=== PATIENT | female | born 1955 | race Caucasian/White ===

== ENCOUNTER → 2017-10-31 06:59 | Outpatient (CLI) | payer OTHER, SELFPAY ==
[2017-10-31 10:50] LABS: Cholesterol 245 mg/dL (200); High Density Lipoprotein 43 mg/dL; Triglycerides 248 mg/dL; Very Low Density Lipoprotein 50 mg/dL (5-40)
== END ==
PROVIDERS: Family Provider Family Medicine; PCP Family Medicine; Visit Provider Family Medicine
DX: E78.1 Pure hyperglyceridemia (principal); R73.03 Prediabetes
CPT/HCPCS: 36415; 80061; 83036

== ENCOUNTER → 2018-06-16 07:02 | Outpatient (CLI) | payer OTHER, SELFPAY ==
[2018-06-16 10:35] LABS: Anion Gap 9 (5-15); BUN 16 mg/dL (7-18); BUN/Creat Ratio 16.6 RATIO (10-20); Chloride 103 mmol/L (98-107); Cholesterol 261 mg/dL (200); Creatinine, Serum 0.96 mg/dL (0.55-1.02); EST Glomerular Filtration Rate 62 mL/min (>60); Est Glom Filt Rate - Afr Amer 75 mL/min (>60); Glucose 119 mg/dL (74-106); High Density Lipoprotein 37 mg/dL; Potassium 4.1 mmol/L (3.5-5.1); Sodium Level 140 mmol/L (136-145); Triglycerides 209 mg/dL; Very Low Density Lipoprotein 42 mg/dL (5-40)
[2018-06-16 10:37] LABS: Hemoglobin A1c 5.9 % (4.2-6.3)
== END ==
PROVIDERS: Family Provider Family Medicine; PCP Family Medicine; Visit Provider Family Medicine
DX: R73.03 Prediabetes (principal); E78.1 Pure hyperglyceridemia; R03.0 Elevated blood-pressure reading, without diagnosis of hypertension
CPT/HCPCS: 36415; 80048; 80061; 83036

== ENCOUNTER → 2018-09-05 10:29 | Outpatient (CLI) | payer OTHER, SELFPAY ==
[2018-09-05 11:54] LABS: Insulin 14.4 mU/L (2.6-37.6); Vitamin B12 355 pg/mL (211-911); Vitamin D,25 Hydroxy 13.4 ng/mL (29.95-100.01)
[2018-09-05 12:03] LABS: Homocysteine 8.5 umol/L (3.2-10.7)
[2018-09-05 12:45] LABS: AST(SGOT) 29 U/L (15-37); Alanine Aminotransfer ALT/SGPT 58 U/L (13-56); Albumin, Serum 3.7 g/dL (3.2-5.0); Alkaline Phosphatase 97 U/L (45-117); Bilirubin, Direct 0.15 mg/dL (0.00-0.30); Estradiol 25.9 pg/mL; Free T3 3.1 pg/mL (2.18-3.98); Globulin 3.6 g/dL (2.2-4.2); Glucose 110 mg/dL (74-106); Protein, Total 7.3 g/dL (6.4-8.2); T4 Free Direct 1.12 ng/dL (0.76-1.46); Thyroid Stim Hormone (TSH) 2.18 uIU/mL (0.358-3.74)
[2018-09-06 04:10] LABS: DHEA Sulfate 78.5 ug/dL (29.4-220.5)
[2018-09-08 11:31] LABS: Sex Hormone-binding Globulin 30.1 nmol/L (17.3-125.0)
[2018-09-10 18:40] LABS: Methylmalonic Acid Bld 190
--- OUTSIDE RECORDS SUMMARY | 2018-10-22 01:29 | XMS RPT_ITS ---
:1955 Author Organization OHIP Care Team Providers Name Role Phone Yane Wheeler Attending Unavailable Yane Wheeler Attending Unavailable Yane Wheeler Referring Unavailable Sathish Copeland Primary Care Unavailable Sathish Copeland Attending Unavailable Sathish Copeland Primary Care Unavailable Sathish Copeland Referring Unavailable Sathish Copeland Attending Unavailable Sathish Copeland Primary Care Unavailable Sathish Copeland Referring Unavailable PROBLEMS PROBLEMS DATE TYPE CONDITION / CODE ATTENDING STATUS SOURCE 09/05/2018 Unknown R68.82 - Decreased Sarah Wheeler [place] libido / [facility] R68.82(ICD-10) Hospital Repository 09/05/2018 Unknown Z68.28 - Body mass Sarah Wheeler index (BMI) 28.0-28.9, [facility] adult / Z68.28(ICD-10) Hospital Repository 06/16/2018 Unknown E78.1 - Pure Sathish Copeland [facility] hyperglyceridemia / [facility] E78.1(ICD-10) Hospital Repository 06/16/2018 Unknown R73.03 - Prediabetes / Sathish Copeland Active [place] R73.03(ICD-10) [facility] Hospital Repository 06/16/2018 Unknown R03.0 - Elevated Sathish Copeland [place] blood-pressure [facility] reading, without Hospital diagnosis of Repository hypertension / R03.0(ICD-10) PROCEDURES PROCEDURES No Procedure Records FoundRESULTS RESULTS SCREENING MAMM (CAD), Observed: 09/20/2018 Status: F Source: [place] BIL 10:47 AM [facility] REPOSITORY [facility] Imaging Services [address] [place] [address] SCREENING MAMM (CAD), BIL MR#: [id number] Acct: [id number] Name: CARLY FULLER Rep #: [id number] : 1955 F 63 From: lSick Avina MD PCP: Sathish Copeland DO Status: REG CLI Study: SCREENING MAMM (CAD), BILAT Date of Exam: 09/20/18 Exam# [id number] Ordering Dr: Yane Abreu MD MAMMOGRAPHY - BILATERAL SCREENING REASON FOR EXAM: Female, 63 years old. Routine annual screening examination. PERTINENT HISTORY: Non-contributory. TECHNIQUE: Digital bilateral breast shanthi (3D mammographic acquisition) in the CC and MLO projections. 2-D mediolateral oblique (MLO) and craniocaudad (CC) views of both breasts were obtained. CAD: Full Field Digital Mammography with Computer Added Detection was performed. COMPARISON: Comparison is made with prior study dated July 19, 2017 and March 01, 2016. FINDINGS: Breast Composition: There are scattered areas of fibroglandular density. There are no dominant masses or suspicious calcifications. Stable small bilateral axillary lymph nodes. Stable 6.7 mm benign-appearing nodule in the deep upper lateral aspect of the right breast suggestive of a small lymph node. No other significant abnormalities are identified. There has been no significant change since the prior study. BI/SCREENING MAMM (CAD), BILAT IMPRESSION: Stable bilateral screening mammogram. Yearly follow-up mammogram recommended. (A) ASSESSMENT CATEGORY: BIRADS Category 2: Benign. A letter regarding these results will be sent to the patient by the facility within 30 days. Approximately 10% of breast cancers are not detected by mammography. A normal mammogram should not delay biopsy of a clinically suspicious abnormality. [id number] Electronically Signed: Slick Avina MD at 10:54 EST Tel [phone], Service support , CC: Sathish Copeland DO; Yane Wheeler MD Senior Project Controls Specialist: Signed VITAMIN B12 Collected: 09/05/2018 Status: F Source: [place] 10:32 AM [facility] REPOSITORY Order Comment: PATIENT HAD COFFE WITH A DASH OF CREAM. TYPE CODE TESTS RESULT OUT OF RANGE REFERENCE UNITS LAB L503.0105 211-911 pg/mL Normal Vitamin B12 355 Performed By: #### L503.0105, L506.1000, L509.3000, L509.6000, [id number] #### [facility] [address] [place], [address] VITAMIN D,25 HYDROXY Collected: 09/05/2018 Status: F Source: LIDIA 10:32 AM [facility] REPOSITORY Order Comment: PATIENT HAD COFFE WITH A DASH OF CREAM. TYPE CODE TESTS RESULT OUT OF REFERENCE UNITS RANGE LAB L506.1000 29.95-100.01 ng/mL Low Vitamin D 13.4 25-OH Result Comment: Vitamin D 25(OH) Status Range Deficiency <20 ng/mL (50nmol/L) Insuffciency 20 - 30 ng/mL (50 - 75 nmol/L) Sufficiency 30 - 100 ng/mL (75 - 250 nmol/L) Toxicity >100 ng/mL (>250 nmol/L) Performed By: #### L503.0105, L506.1000, L509.3000, L509.6000, [id number] #### [facility] [address] [place], [address] TESTOSTERONE, SERUM TOTAL Collected: 09/05/2018 Status: F Source: [place] 10:32 AM [facility] REPOSITORY Order Comment: PATIENT HAD COFFE WITH A DASH OF CREAM. TYPE CODE TESTS RESULT OUT OF REFERENCE UNITS RANGE LAB L509.3000 ng/dL Testosterone Normal 22.14 Result Comment: NORMAL REFERENCE RANGES MALE AGE <50 123.06 - 813.86 ng/dL MALE AGE >50 89.98 - 780.10 ng/dL FEMALE PREMENOPAUSE AGE 21 - 60 9.01 - 47.94 ng/dL FEMALE POSTMENOPAUSE AGE 45 - 89 <7.00 - 45.62 ng/dL REFERENCE RANGE AND METHODOLOGY CHANGED 09/11/2017 Performed By: #### L503.0105, L506.1000, L509.3000, L509.6000, [id number] #### [facility] [address] [place], [address] CORTISOL SERUM Collected: 09/05/2018 Status: F Source: [place] 10:32 AM [facility] REPOSITORY Order Comment: PATIENT HAD COFFE WITH A DASH OF CREAM. TYPE CODE TESTS RESULT OUT OF RANGE REFERENCE UNITS LAB L509.6000 3.09-22.40 ug/dL Normal CORTISOL 5.00 Result Comment: Adult (AM) 4.30 - 22.40 ug/dL Adult (PM) 3.09 - 16.66 ug/dL Performed By: #### L503.0105, L506.1000, L509.3000, L509.6000, [id number] #### [facility] [address] [place], [address] INSULIN Collected: 09/05/2018 Status: F Source: [place] 10:32 AM [facility] REPOSITORY Order Comment: PATIENT HAD COFFE WITH A DASH OF CREAM. TYPE CODE TESTS RESULT OUT OF RANGE REFERENCE UNITS LAB [id number] 2.6-37.6 mU/L Normal Insulin 14.4 Result Comment: Please Note: INSULIN METHOD AND REFERENCE RANGE CHANGE Effective 10/03/2017. Performed By: #### L503.0105, L506.1000, L509.3000, L509.6000, [id number] #### [facility] [address] [place], [place], [address] HOMOCYSTEINE Collected: 09/05/2018 Status: F Source: [place] 10:32 AM [facility] REPOSITORY TYPE CODE TESTS RESULT OUT OF REFERENCE UNITS RANGE LAB L503.8001 3.2-10.7 umol/L HOMOCYSTEINE Normal 8.5 Performed By: #### L503.8001 #### [facility] [address] [facility] [place], [address] LIVER PROFILE Collected: 09/05/2018 Status: F Source: [place] 10:32 AM [facility] REPOSITORY Order Comment: PATIENT HAD COFFEE WITH A DASH OF CREAM. TYPE CODE TESTS RESULT OUT OF RANGE REFERENCE UNITS LAB L501.1500 6.4-8.2 g/dL Normal T PROT 7.3 LAB L501.1800 3.2-5.0 g/dL Normal ALB 3.7 LAB L501.1950 2.2-4.2 g/dL Normal GLOB 3.6 LAB L501.4100 15-37 U/L Normal AST 29 LAB L501.4305 45-117 U/L Normal ALK P 97 LAB L501.4405 13-56 U/L High ALT 58 LAB L501.4600 0.20-1.00 mg/dL Normal T BILI 0.60 LAB L501.4700 0.00-0.30 mg/dL Normal D BILI 0.15 Performed By: #### L500.3400, L501.0100, L501.56560, L501.9520, L506.0400, L3300.1750 #### [facility] [address] [place], [address] GLUCOSE Collected: 09/05/2018 Status: F Source: L[place]IA 10:32 AM [facility] REPOSITORY Order Comment: PATIENT HAD COFFEE WITH A DASH OF CREAM. TYPE CODE TESTS RESULT OUT OF RANGE REFERENCE UNITS LAB L501.0100 74-106 mg/dL High GLU 110 Result Comment: Fasting Glucose result from 100 to 125 mg/dL suggests IMPAIRED HOMEOSTASIS per A.D.A. criteria. Please note revised GLUCOSE reference range effective 2017. Performed By: #### L500.3400, L501.0100, L501.73859, L501.9520, L506.0400, L3300.1750 #### [facility] [address] [place], [address] FREE T3 Collected: 09/05/2018 Status: F Source: L[place] 10:32 AM [facility] REPOSITORY Order Comment: PATIENT HAD COFFEE WITH A DASH OF CREAM. TYPE CODE TESTS RESULT OUT OF RANGE REFERENCE UNITS LAB L501.96410 2.18-3.98 pg/mL Normal FREE T3 3.1 Performed By: #### L500.3400, L501.0100, L501.06306, L501.9520, L506.0400, L3300.1750 #### [facility] [address] [place], [address] THYROID STIM HORMONE Collected: 09/05/2018 Status: F Source: [place] (TSH) 10:32 AM [facility] REPOSITORY Order Comment: PATIENT HAD COFFEE WITH A DASH OF CREAM. TYPE CODE TESTS RESULT OUT OF RANGE REFERENCE UNITS LAB L501.9520 0.358-3.74 uIU/mL Normal TSH 2.18 Performed By: #### L500.3400, L501.0100, L501.66449, L501.9520, L506.0400, L3300.1750 #### [facility] [address] [place], [address] T4 FREE DIRECT Collected: 09/05/2018 Status: F Source: [place] 10:32 AM [facility] REPOSITORY Order Comment: PATIENT HAD COFFEE WITH A DASH OF CREAM. TYPE CODE TESTS RESULT OUT OF RANGE REFERENCE UNITS LAB L506.0400 0.76-1.46 ng/dL Normal T4 FREE 1.12 DIRECT Performed By: #### L500.3400, L501.0100, L501.43847, L501.9520, L506.0400, L3300.1750 #### [facility] [address] [place], [place], [address] ESTRADIOL Collected: 09/05/2018 Status: F Source: [place] 10:32 AM [facility] REPOSITORY Order Comment: PATIENT HAD COFFEE WITH A DASH OF CREAM. TYPE CODE TESTS RESULT OUT OF RANGE REFERENCE UNITS LAB L3300.1750 pg/mL Normal ESTRADIOL 25.9 Result Comment: NORMAL REFERENCE RANGES FEMALE FOLLICULAR 21.4 - 164.8 pg/mL MID-CYCLE PEAK 49.9 - 367.2 pg/mL LUTEAL 40.2 - 259.0 pg/mL POST-MENOPAUSAL ON MHT <11.0 - 462.1 pg/mL NOT ON MHT <11.0 - 58.3 pg/mL MALE <11.0 - 52.5 pg/mL NOTE: [facility] HAS CONFIRMED THE DRUG FULVETRANT (FASLODEX) MAY CAUSE FALSELY ELEVATED ESTRADIOL RESULTS WHEN USING THIS TEST METHOD. IF PATIENT IS TAKING FULVESTRANT AN ALTERNATIVE METHOD SHOULD BE USED TO DETERMINE ESTRADIOL CONCENTRATION. Performed By: #### L500.3400, L501.0100, L501.79632, L501.9520, L506.0400, L3300.1750 #### [facility] [address] [place], [place], [address] SEX HORMONE-BINDING Collected: 09/05/2018 Status: F Source: [place] GLOBULIN 10:32 AM [facility] REPOSITORY Order Comment: Has Patient had Radioactive Injection for X-ray?: N TYPE CODE TESTS RESULT OUT OF RANGE REFERENCE UNITS LAB L3100.5060 17.3-125.0 nmol/L Normal SHBG 30.1 Result Comment: Performed at: [address] [id number] Enforcement Manager: Reese Painter PhD, Phone: [phone] Performed By: #### L3100.5060, L3300.1500 #### [facility] (refer to report for specific site) refer to report for address and phone number DHEA SULFATE Collected: 09/05/2018 Status: F Source: L[place] 10:32 AM [facility] REPOSITORY Order Comment: Has Patient had Radioactive Injection for X-ray?: N TYPE CODE TESTS RESULT OUT OF RANGE REFERENCE UNITS LAB L3300.1500 29.4-220.5 ug/dL Normal DHEA SULF 78.5 4020 Performed By: #### L3100.5060, L3300.1500 #### [facility] (refer to report for specific site) refer to report for address and phone number METHYLMALONIC ACID BLD Collected: 09/05/2018 Status: F Source: [place] 10:32 AM [facility] REPOSITORY TYPE CODE TESTS RESULT OUT OF RANGE REFERENCE UNITS LAB L7400.3000 Normal METHYLM 190 137716 Result Comment: TEST RESULT UNITS REF INTERVAL Methylmalonic Acid, Serum nmol/L 0 - 378 Disclaimer: This test was developed and its performance characteristics determined by [employer]. It has not been cleared or approved by the U.S. Food and Drug Administration. TESTING PERFORMED AT [facility]. ORIGINAL REPORT ON FILE IN LAB CONTAINS ADDITIONAL TEST SITE INFORMATION. Performed By: #### L7400.3000 #### [facility] (refer to report for specific site) refer to report for address and phone number BASIC METABOLIC Collected: 06/16/2018 Status: F Source: [place] PROFILE (BMP) 7:07 AM [facility] REPOSITORY TYPE CODE TESTS RESULT OUT OF RANGE REFERENCE UNITS LAB L501.0100 74-106 mg/dL High GLU 119 Result Comment: Fasting Glucose result from 100 to 125 mg/dL suggests IMPAIRED HOMEOSTASIS per A.D.A. criteria. Please note revised GLUCOSE reference range effective 2017. LAB L501.1000 7-18 mg/dL Normal BUN 16 LAB L501.1100 0.55-1.02 mg/dL Normal CREAT,SERUM 0.96 Result Comment: The validity of the calculated GFR AND GFRAA in patients over 70 years has not been determined. Clinical correlation is essential. LAB L501.1110 >60 mL/min Normal EST GFR 62 Result Comment: Non- GFR Calc LAB L501.1115 >60 mL/min Normal EST GFR - AA 75 Result Comment: GFR Calc LAB L501.1300 10-20 RATIO Normal BUN/CRE 16.6 LAB L501.2200 8.5-10.1 mg/dL CA Normal 9.0 LAB L501.5300 136-145 mmol/L NA Normal 140 LAB L501.5600 3.5-5.1 mmol/L K Normal 4.1 LAB L501.5900 98-107 mmol/L CL Normal 103 LAB L501.6100 21.0-32.0 mmol/L Normal CO2 28.0 LAB L501.6200 5-15 Normal GAP 9 Performed By: #### L500.2500, L500.4100 #### [facility] [address] [place], [place], [address] LIPID PROFILE Collected: 06/16/2018 Status: F Source: T[place] 7:07 AM [facility] REPOSITORY TYPE CODE TESTS RESULT OUT OF RANGE REFERENCE UNITS LAB L501.4900 200 mg/dL High CHOL 261 Result Comment: <200 mg/dL Desirable 200-240 mg/dL Borderline >240 mg/dL High Risk LAB L501.5000 mg/dL High TRIG 209 Result Comment: The drugs N-Acetylcysteine and Metamizole may falsely depress this assay. Serum Triglycerides Reference Interval Normal <150 mg/dL Borderline high 150 - 199 mg/dL High 200 - 499 mg/dL Very High > or = 500 mg/dL LAB L501.6400 mg/dL Low HDL 37 Result Comment: The drugs N-Acetylcysteine and Metamizole may falsely depress this assay. Reference Range HDL <40 mg/dL Low HDL Cholesterol HDL >or= 60 mg/dL High HDL Cholesterol LAB L501.6500 0-130 mg/dL High LDL 182 LAB L501.6600 5-40 mg/dL High VLDL 42 Performed By: #### L500.2500, L500.4100 #### [facility] [address] [facility] [place], [address] HEMOGLOBIN A1C Collected: 06/16/2018 Status: F Source: T[place]OR 7:07 AM [facility] REPOSITORY TYPE CODE TESTS RESULT OUT OF RANGE REFERENCE UNITS LAB L501.9985 4.2-6.3 % Normal HGB A1C 5.9 Performed By: #### L501.9985 #### [facility] [address] [place], [address] HEMOGLOBIN A1C Collected: 10/31/2017 Status: F Source: TAY[place]OR 7:09 AM [facility] REPOSITORY TYPE CODE TESTS RESULT OUT OF RANGE REFERENCE UNITS LAB L501.9985 4.2-6.3 % Normal HGB A1C 6.0 Performed By: #### L501.9985 #### [facility] [address] [facility] [place], [address] LIPID PROFILE Collected: 10/31/2017 Status: F Source: [place]OR 7:09 AM [facility] REPOSITORY TYPE CODE TESTS RESULT OUT OF RANGE REFERENCE UNITS LAB L501.4900 200 mg/dL High CHOL 245 Result Comment: <200 mg/dL Desirable 200-240 mg/dL Borderline >240 mg/dL High Risk LAB L501.5000 mg/dL High TRIG 248 Result Comment: The drugs N-Acetylcysteine and Metamizole may falsely depress this assay. Serum Triglycerides Reference Interval Normal <150 mg/dL Borderline high 150 - 199 mg/dL High 200 - 499 mg/dL Very High > or = 500 mg/dL LAB L501.6400 mg/dL Normal HDL 43 Result Comment: The drugs N-Acetylcysteine and Metamizole may falsely depress this assay. Reference Range HDL <40 mg/dL Low HDL Cholesterol HDL >or= 60 mg/dL High HDL Cholesterol LAB L501.6500 0-130 mg/dL High LDL 152 LAB L501.6600 5-40 mg/dL High VLDL 50 Performed By: #### L500.4100 #### [facility] [address] [place], [address] ALLERGIES ALLERGIES DATE TYPE / CODE NAME / CODE REACTION SEVERITY SOURCE 10/27/2014 Drug rizatriptan Unknown Unknown [facility] Allergy/416 benzoate/[id number] [facility] [id number][facility] 10/27/2014 Drug prednisone/[id number] Nausea Unknown [facility]idia Allergy/416 164(RXNORM) [facility] 154928([facility] ED CT) Repository 10/27/2014 Drug clarithromycin/F00 Diarrhea Unknown [place]idia Allergy/991 [id number](RXNORM) [facility] 561390([facility] ED CT) Repository ENCOUNTERS ENCOUNTERS ADMIT/DISCHARGE ACCOUNT ADMITTING ENCOUNTER LOCATION SOURCE NUMBER CLASS 09/20/2018 [id number] Ambulatory [facility] 1 [facility] ing:OPBI Repository 09/05/[id number] ing:WOBLAB Repository 06/16/2018 [id number] [facility] ing:LAB.FUTUR Repository E 10/31/2017 [id number] Ambulatory [facility] 7 [facility] ing:LAB.FUTUR Repository E PAYERS PAYERS ENCOUNTER GUARANTOR PAYER SUBSCRIBER SOURCE 09/20/2018 CARLY Hernadez [id number] N Insurance:MEDICAL SUTTONDOB: [facility] [id number] Number: Repository [id number]: [phone] [id number] [phone] () Date:4584-70-52WP [address] [place] [phone]: 09/20/2018 Secondary NOT GIVENUNK [place] Insurance:SELF PAY [facility] Number: Effective Repository Date:2018-09-05 09/05/2018 CARLY Hernadez [id number] N Insurance:MEDICAL SUTTONDOB: [facility] [id number] Number: Repository [id number]: [phone] [id number] [phone] (HP) Date:7359-33-76LS [address] [place] [phone]: 09/05/2018 Secondary NOT GIVENUNK [place] Insurance:SELF PAY [facility] Number: Effective Repository Date:2018-09-05 06/16/2018 CARLY L Primary CARLY Hernadez [id number] N Insurance:MEDICAL SUTTONDOB: [facility] [id number] Number: Repository [id number]: [phone] [id number] [phone] (HP) Date:1333-28-15DL [address] [place] [phone]: 06/16/2018 Secondary NOT GIVENUNK [facility]idia Insurance:SELF PAY [facility] Number: Effective Repository Date:2017-11-19 10/31/2017 Carly Primary Carly Hernadez [id number] [id number] Number: Repository [place], [place] [id number]: [phone]) Date:1816-22-63NL [phone] () [address] [place] [phone]: 10/31/2017 Secondary NOT GIVENUNK [place] Insurance:SELF PAY [facility] Number: Effective Repository Date:2017-01-09
== END ==
PROVIDERS: Visit Provider Obstetrics & Gynecology
DX: R68.82 Decreased libido (principal); R53.83 Other fatigue; Z68.28 Body mass index [BMI] 28.0-28.9, adult
CPT/HCPCS: 36415; 80076; 82306; 82533; 82607; 82627; 82670; 82947; 83090; 83525; 83921; 84270; 84403; 84439; 84443; 84481; 82626

== ENCOUNTER → 2018-09-20 10:37 | Outpatient (CLI) | payer OTHER, SELFPAY ==
--- NOTE | 2018-09-20 10:47 | BI_ITS ---
MAMMOGRAPHY - BILATERAL SCREENING REASON FOR EXAM: Female, 63 years old. Routine annual screening examination. PERTINENT HISTORY: Non-contributory. TECHNIQUE: Digital bilateral breast shanthi (3D mammographic acquisition) in the CC and MLO projections. 2-D mediolateral oblique (MLO) and craniocaudad (CC) views of both breasts were obtained. CAD: Full Field Digital Mammography with Computer Added Detection was performed. COMPARISON: Comparison is made with prior study dated July 19, 2017 and March 01, 2016. FINDINGS: Breast Composition: There are scattered areas of fibroglandular density. There are no dominant masses or suspicious calcifications. Stable small bilateral axillary lymph nodes. Stable 6.7 mm benign-appearing nodule in the deep upper lateral aspect of the right breast suggestive of a small lymph node. No other significant abnormalities are identified. There has been no significant change since the prior study. BI/SCREENING MAMM (CAD), BILAT IMPRESSION: Stable bilateral screening mammogram. Yearly follow-up mammogram recommended. (A) ASSESSMENT CATEGORY: BIRADS Category 2: Benign. A letter regarding these results will be sent to the patient by the facility within 30 days. Approximately 10% of breast cancers are not detected by mammography. A normal mammogram should not delay biopsy of a clinically suspicious abnormality. [id number] Electronically Signed: Slick Avina MD at 10:54 EST Tel [phone], Service support ,
== END ==
PROVIDERS: Family Provider Family Medicine; PCP Family Medicine; Referring Provider Obstetrics & Gynecology; Visit Provider Obstetrics & Gynecology
DX: Z12.31 Encounter for screening mammogram for malignant neoplasm of breast (principal)
CPT/HCPCS: 77063; 77067

== ENCOUNTER → 2019-09-07 08:59 | Outpatient (CLI) | payer OTHER, SELFPAY ==
[2019-09-07 10:11] LABS: Absolute Lymphocyte Count 1.74 X10^3/uL (0.83-4.51); Absolute Neutrophil Count 1.9 X10^3/uL (2.0-7.7); Basophil# 0.04 X10^3/uL; Eosinophil# 0.23 X10^3/uL; Eosinophils% 5.5 % (0-5); Hematocrit 46.2 % (37-47); Hemoglobin 15.3 g/dL (12.0-15.0); Lymphocyte # 1.74 X10^3/ul (4.0); Lymphocyte % 41.6 % (19-41); Mean Corp Hgb Conc 33.1 g/dL (32-36); Mean Corpuscular Hgb 30.1 pg (27.0-32.0); Mean Corpuscular Volume 90.8 fL (81-99); Monocyte# 0.31 X10^3/uL; Monocyte% 7.4 % (0-10); NRBC Flagged by Analyzer 0 % (0-5); Neutrophil # 1.85 X10^3/uL (2.7-7.7); Neutrophil % 44.3 % (47-70); Platelet Count 217 K/mm3 (150-450); RBC Distribution Width CV 12.8 % (11.6-14.6); RBC Distribution Width SD 42.8 fl (35.1-43.9); Red Blood Count 5.09 M/mm3 (4.2-5.4); White Blood Count 4.2 K/mm3 (4.4-11.0)
[2019-09-07 10:24] LABS: ALB/GLOB Ratio 1.1 RATIO (0.9-2.4); AST(SGOT) 36 U/L (15-37); Alanine Aminotransfer ALT/SGPT 64 U/L (13-56); Albumin, Serum 3.7 g/dL (3.2-5.0); Alkaline Phosphatase 81 U/L (45-117); Anion Gap 6 (5-15); BUN 14 mg/dL (7-18); BUN/Creat Ratio 13.6 RATIO (10-20); Calcium,Total 8.9 mg/dL (8.5-10.1); Chloride 107 mmol/L (98-107); Cholesterol 277 mg/dL (200); Creatinine, Serum 1.03 mg/dL (0.55-1.02); EST Glomerular Filtration Rate 58 mL/min (>60); Est Glom Filt Rate - Afr Amer 70 mL/min (>60); Globulin 3.3 g/dL (2.2-4.2); Glucose 124 mg/dL (74-106); High Density Lipoprotein 42 mg/dL; Potassium 4.4 mmol/L (3.5-5.1); Sodium Level 140 mmol/L (136-145); Triglycerides 278 mg/dL; Very Low Density Lipoprotein 56 mg/dL (5-40)
[2019-09-07 10:34] LABS: Hemoglobin A1c 6.3 % (4.2-6.3)
== END ==
PROVIDERS: Family Provider Family Medicine; PCP Family Medicine; Referring Provider Family Medicine; Visit Provider Family Medicine
DX: R73.03 Prediabetes (principal); E78.1 Pure hyperglyceridemia; I11.9 Hypertensive heart disease without heart failure
CPT/HCPCS: 36415; 80053; 80061; 83036; 85025

== ENCOUNTER → 2019-09-11 | Outpatient (CLI) | payer OTHER, SELFPAY ==
[2019-09-17 20:22] LABS: HPV APTIMA, High Risk Negative (Negative); HPV Reflexed? YES, CHARGE PATIENT
== END | disposition home or self-care (01) ==
LOC: LABSPEC 15:12
PROVIDERS: Family Provider Family Medicine; PCP Family Medicine; Referring Provider Obstetrics & Gynecology; Visit Provider Obstetrics & Gynecology
DX: Z12.4 Encounter for screening for malignant neoplasm of cervix (principal)
CPT/HCPCS: 87624; 88175; G0145

== ENCOUNTER → 2019-10-06 07:14 | Outpatient (CLI) | payer OTHER, SELFPAY ==
--- NOTE | 2019-10-06 07:17 | BI_ITS ---
MAMMOGRAPHY - BILATERAL SCREENING REASON FOR EXAM: Female, 64 years old. Routine annual screening examination. PERTINENT HISTORY: Non-contributory. TECHNIQUE: Digital bilateral breast shawna (3D mammographic acquisition) in the CC and MLO projections. 2-D mediolateral oblique (MLO) and craniocaudad (CC) views of both breasts were obtained. CAD: Full Field Digital Mammography with Computer Added Detection was performed. COMPARISON: Comparison is made with prior study dated September 20, 2018 and July 19, 2017. FINDINGS: Breast Composition: There are scattered areas of fibroglandular density. There are no dominant masses or suspicious calcifications. Stable benign-appearing bilateral axillary lymph nodes. Stable 6.7 mm benign-appearing nodule in the deep upper lateral aspect of the right breast suggestive of a small lymph node. No other significant abnormalities are identified. There has been no significant change since the prior study. BI/SCREEN MAMM (CAD) W/SHAWNA BILAT IMPRESSION: Stable bilateral screening mammogram. Yearly follow-up mammogram recommended. (A) ASSESSMENT CATEGORY: BIRADS Category 2: Benign. A letter regarding these results will be sent to the patient by the facility within 30 days. Approximately 10% of breast cancers are not detected by mammography. A normal mammogram should not delay biopsy of a clinically suspicious abnormality. [id number] Electronically Signed: Slick Avina, at 9:46 EST , Service support ,
== END ==
PROVIDERS: Family Provider Family Medicine; PCP Family Medicine; Referring Provider Obstetrics & Gynecology; Visit Provider Obstetrics & Gynecology
DX: Z12.31 Encounter for screening mammogram for malignant neoplasm of breast (principal)
CPT/HCPCS: 77063; 77067

== ENCOUNTER → 2019-12-04 08:37 | Outpatient (CLI) | payer OTHER, SELFPAY ==
[2019-12-04 10:02] LABS: Hemoglobin A1c 5.9 % (4.2-6.3)
[2019-12-04 10:04] LABS: Cholesterol 221 mg/dL (200); High Density Lipoprotein 41 mg/dL; Triglycerides 209 mg/dL; Very Low Density Lipoprotein 42 mg/dL (5-40)
== END ==
LOC: LAB.FUTURE 08:40 → WOBLAB 12-11 14:22
PROVIDERS: Family Provider Family Medicine; PCP Family Medicine; Referring Provider Obstetrics & Gynecology; Visit Provider Family Medicine
DX: E55.9 Vitamin D deficiency, unspecified (principal); R73.03 Prediabetes; E78.5 Hyperlipidemia, unspecified
CPT/HCPCS: 36415; 80061; 82306; 83036

== ENCOUNTER → 2020-06-07 07:47 | Outpatient (CLI) | payer OTHER, SELFPAY ==
[2020-06-07 10:21] LABS: Absolute Lymphocyte Count 1.75 X10^3/uL (0.83-4.51); Absolute Neutrophil Count 2.1 X10^3/uL (2.0-7.7); Basophil# 0.02 X10^3/uL; Basophil% 0.5 % (0-1); Eosinophil# 0.17 X10^3/uL; Eosinophils% 3.8 % (0-5); Hematocrit 46.5 % (37-47); Hemoglobin 14.8 g/dL (12.0-15.0); Lymphocyte # 1.75 X10^3/ul (4.0); Lymphocyte % 39.5 % (19-41); Mean Corp Hgb Conc 31.8 g/dL (32-36); Mean Corpuscular Hgb 29.3 pg (27.0-32.0); Mean Corpuscular Volume 92.1 fL (81-99); Mean Platelet Vol. 10.5 fl (6.2-12.0); Monocyte# 0.34 X10^3/uL; Monocyte% 7.7 % (0-10); NRBC Flagged by Analyzer 0 % (0-5); Neutrophil # 2.14 X10^3/uL (2.7-7.7); Neutrophil % 48.3 % (47-70); Platelet Count 219 K/mm3 (150-450); RBC Distribution Width CV 12.7 % (11.6-14.6); Red Blood Count 5.05 M/mm3 (4.2-5.4); White Blood Count 4.4 K/mm3 (4.4-11.0)
[2020-06-07 10:48] LABS: AST(SGOT) 21 U/L (15-37); Alanine Aminotransfer ALT/SGPT 40 U/L (13-56); Albumin, Serum 3.5 g/dL (3.2-5.0); Alkaline Phosphatase 68 U/L (45-117); Anion Gap 4 (5-15); BUN 15 mg/dL (7-18); BUN/Creat Ratio 16.1 RATIO (10-20); Calcium,Total 8.9 mg/dL (8.5-10.1); Chloride 108 mmol/L (98-107); Cholesterol 252 mg/dL (200); Creatinine, Serum 0.93 mg/dL (0.55-1.02); EST Glomerular Filtration Rate 64 mL/min (>60); Est Glom Filt Rate - Afr Amer 78 mL/min (>60); Globulin 3.5 g/dL (2.2-4.2); Glucose 116 mg/dL (74-106); High Density Lipoprotein 40 mg/dL; Potassium 4.3 mmol/L (3.5-5.1); Sodium Level 139 mmol/L (136-145); Triglycerides 245 mg/dL; Very Low Density Lipoprotein 49 mg/dL (5-40)
[2020-06-07 11:04] LABS: Hemoglobin A1c 6.1 % (3.8-5.6)
== END ==
LOC: LAB.FUTURE 07:48 → MTLAB 07:54
PROVIDERS: PCP Family Medicine; Referring Provider Family Medicine; Visit Provider Family Medicine
DX: Z00.00 Encounter for general adult medical examination without abnormal findings (principal); R73.03 Prediabetes
CPT/HCPCS: 36415; 80053; 80061; 83036; 85025

== ENCOUNTER → 2020-12-07 07:04 | Outpatient (CLI) | payer OTHER, SELFPAY ==
[2020-12-07 11:27] LABS: Cholesterol 265 mg/dL (200); Glucose 117 mg/dL (74-106); High Density Lipoprotein 45 mg/dL; Triglycerides 339 mg/dL; Very Low Density Lipoprotein 68 mg/dL (5-40)
== END ==
PROVIDERS: PCP Family Medicine; Referring Provider Family Medicine; Visit Provider Family Medicine
DX: R73.03 Prediabetes (principal); E78.5 Hyperlipidemia, unspecified
CPT/HCPCS: 36415; 80061; 82947; 83036

== ENCOUNTER 2020-12-23 06:35 | Observation (INO) | payer OTHER, SELFPAY ==
[2020-12-23] VITALS (17 sets, daily range): BP systolic 111–159; BP diastolic 51–78; PULSE 70–92; RESP 16–20; TEMP 36.3–37.8; O2SAT 90–96; BMI 28.7; BMI 30.2
--- NOTE | 2020-12-23 06:56 | CT_ITS ---
STUDY: CT ABDOMEN AND PELVIS WITH CONTRAST REASON FOR EXAM: Female, 65 years old. Most likely secondary to facet joint osteoarthritis. Pain for several days. Nausea. -- IV PO Contrast RADIATION DOSAGE (If Supplied By Facility): CTDIvol = ( 9.86 ) mGy, DLP = ( 853.94 ) mGycm TECHNIQUE: Transaxial images were obtained from the dome of the diaphragm to the symphysis pubis with oral contrast. Oral and amp; IV Gastrografin and amp; 100mL Isovue-300 was administered. Sagittal and coronal images were reconstructed. Individualized dose optimization techniques were used for this CT. COMPARISON: None. FINDINGS: Mild degree of increased markings at the lung bases suggestive of bibasilar atelectasis slightly more prominent on the right side. Coronary artery calcification. There is decreased attenuation of the liver consistent with steatosis. Mild hepatomegaly. There is a solitary gallstone. This measures 2.9 mm. Normal spleen. Normal pancreas. Normal bilateral adrenal glands. Normal right kidney. Normal left kidney. Normal visualized stomach. Normal small intestine. There are multiple colonic diverticula consistent with diverticulosis. There is a tubular, thick-walled appendix (>7mm), consistent with acute appendicitis. There is evidence of a 7.5 mm appendicolith in the proximal portion of the appendiceal lumen. Inflammatory changes are seen in the surrounding peritoneal fat with a small amount of the fluid. There is diffuse atherosclerotic calcification of the abdominal aorta, without a demonstrated aneurysm. Normal inferior vena cava. Normal retroperitoneum. Normal urinary bladder. Small bilateral inguinal hernias containing fat. Minimal anterior listhesis of L4 on L5. Most likely secondary to facet joint osteoarthritis. CT/Abdomen/Pelvis WITH Contrast IMPRESSION: Findings in keeping with acute appendicitis with surrounding inflammatory changes in the right lower quadrant. There is a 7.5 mm appendicolith in the proximal appendiceal lumen. Solitary gallstone. Mild hepatomegaly with diffuse fatty infiltration of the liver. Electronically Signed: Slick Avina MD at 8:48 EDT , Service support ,
[2020-12-23 07:06] LABS: Mucous, Urine 0 SEEN /hpf (<or=2+); Red Blood Cells-Urine 0 SEEN /hpf (0-5); White Blood Cells 0 SEEN /hpf (0-5)
--- NOTE | 2020-12-23 07:11 | ED.DCSUM_ITS ---
- ER Visit Summary Date of Service: 12/23/20 Chief Complaint: Abdominal pain History of Present Illness: The patient is a [address] Copeland. She reports she has right-sided abdominal pain began 2 days ago. Is gradually gotten worse. Is a continuous sharp, stabbing pain is 1010 at worst 9-10 curr ently. Is worsened by laying down and relieved by standing. She had nausea without vomiting. Orts that she is having 4 loose stools a day. She does state that has been watery a few times. She denies any blood in her stools or black tarry stools. She has chronic frequency that seems to have worsened. She denies dysuria. Patient denies sick contacts. Has not been camping out of the country. No possible bad food exposure. Does not drink well water, but others do as well at home and they are not ill. No recent antibiotic use. Patient reports her last colonoscopy was 5 years ago and she believes it was by Dr. Zoltan Pabon. Physical Examination: Vitals: Stable. Afebrile. General: Well-nourished and well-developed. Head: Normocephalic atraumatic. Neck: Supple, no lymphadenopathy. No JVD. Nontender. Cardiovascular: Regular rate and rhythm. No murmurs. Respiratory: No respiratory distress. Clear to auscultation bilaterally. Abdominal: Soft, moderate right lower quadrant, mild right upper quadrant and epigastric tenderness to palpation, nondistended, normal bowel sounds. No guarding, rebound, or peritoneal signs. Back: Nontender. Extremities: Nontender, no edema. Skin: Normal color, no rash. Neurologic: Alert and oriented ?3. Cranial nerves II through XII are intact. Normal strength and sensation. Psych: Normal affect. Test Results: CBC shows an H&H of 15.5 and 47.3, second neutrophils 82, lymphocytes of 12. UA is normal. CMP shows a glucose 144 and creatinine 1.03. Total bili is 1.1. Lipase is 88. Emergency Department Course and Treatment: Patient had an IV placed. She was given a liter of normal saline. She is given morphine and Zofran IV. She is resting more comfortably. Treatment Plan: Patient had CT ordered. This will be checked out to the oncoming physician. Disposition: Pending Impression: 1. Abdominal pain. This note was generated with [employer] dictation software. It may contain incorrect words, spelling, and punctuation that were not noted in review of the chart prior to signing ED Disposition - Plan for ED Patient: Referrals: Sathish Copeland DO [Primary Care Provider] -
[2020-12-23] MEDS: 0.9% Normal Saline 1,000 ML 1000 ML IV (07:20)
[2020-12-23] MEDS: Ondansetron 4 MG/2 ML Vial IV (07:20)
[2020-12-23 07:21] LABS: Color, Urine Yellow (Yellow); Glucose, Dipstick Normal (Normal); Ketone-Dipstick Negative (Negative); Leukocyte Esterase-Dipstick Negative /ul (Negative); Nitrite-Dipstick Negative (Negative); Occult Blood-Urine Negative /ul (Negative); Protein-Dipstick Negative (Negative); Specific Gravity, Urine 1.015 (1.002-1.030); Urine Bilirubin Dipstick Negative (Negative); Urine Clarity Sl. Cloudy (Clear); Urine Urobilinogen Normal (Normal)
[2020-12-23] MEDS: Morphine 4 MG/ML Syringe IV ×2 (07:21→09:28)
[2020-12-23 07:22] LABS: Absolute Lymphocyte Count 1.17 X10^3/uL (0.83-4.51); Absolute Neutrophil Count 8.1 X10^3/uL (2.0-7.7); Basophil# 0.03 X10^3/uL; Basophil% 0.3 % (0-1); Eosinophil# 0.08 X10^3/uL; Eosinophils% 0.8 % (0-5); Hematocrit 47.3 % (37-47); Hemoglobin 15.5 g/dL (12.0-15.0); Lymphocyte # 1.17 X10^3/ul (4.0); Lymphocyte % 11.5 % (19-41); Mean Corp Hgb Conc 32.8 g/dL (32-36); Mean Corpuscular Hgb 29.6 pg (27.0-32.0); Mean Corpuscular Volume 90.3 fL (81-99); Mean Platelet Vol. 9.8 fl (6.2-12.0); Monocyte# 0.69 X10^3/uL; Monocyte% 6.8 % (0-10); NRBC Flagged by Analyzer 0 % (0-5); Neutrophil # 8.14 X10^3/uL (2.7-7.7); Neutrophil % 80.3 % (47-70); Platelet Count 181 K/mm3 (150-450); RBC Distribution Width CV 13.1 % (11.6-14.6); RBC Distribution Width SD 43.4 fl (35.1-43.9); Red Blood Count 5.24 M/mm3 (4.2-5.4); White Blood Count 10.1 K/mm3 (4.4-11.0)
[2020-12-23 07:28] LABS: Amorphous Sediment 1+ PHOS; Bacteria 1+ /hpf (None Seen); Squamous Epithelial Cells - UA 0-5 SEEN /hpf (5-10)
[2020-12-23 07:38] LABS: ALB/GLOB Ratio 1.2 RATIO (0.9-2.4); AST(SGOT) 21 U/L (15-37); Alanine Aminotransfer ALT/SGPT 53 U/L (13-56); Albumin, Serum 3.8 g/dL (3.2-5.0); Alkaline Phosphatase 88 U/L (45-117); Anion Gap 5 (5-15); BUN 11 mg/dL (7-18); BUN/Creat Ratio 10.7 RATIO (10-20); Calcium,Total 9.2 mg/dL (8.5-10.1); Chloride 102 mmol/L (98-107); Creatinine, Serum 1.03 mg/dL (0.55-1.02); EST Glomerular Filtration Rate 57 mL/min (>60); Est Glom Filt Rate - Afr Amer 69 mL/min (>60); Estimated Creatinine Clearance 49.65 ml/min; Globulin 3.3 g/dL (2.2-4.2); Glucose 147 mg/dL (74-106); Lipase 88 U/L (73-393); Potassium 4.4 mmol/L (3.5-5.1); Protein, Total 7.1 g/dL (6.4-8.2); Sodium Level 137 mmol/L (136-145)
[2020-12-23] MEDS: 0.9% Normal Saline 1,000 ML 100 ML IV ×2 (08:24→15:35)
--- NOTE | 2020-12-23 09:28 | EKG12_ITS ---
Test Reason : Blood Pressure : / mmHG Vent. Rate : 077 BPM Atrial Rate : 077 BPM P-R Int : 158 ms QRS Dur : 080 ms QT Int : 382 ms P-R-T Axes : 047 -10 055 degrees QTc Int : 432 ms Normal sinus rhythm Normal ECG Confirmed by NISHI WANG, BRYAN ([id number]), news videotape editor JACK WILLS ([id number]) on 12/28/2020 8:03:27 AM Referred By: DOROTA Confirmed By:BRYAN ALMODOVAR MD
--- NOTE | 2020-12-23 10:18 | HP.PCM_ITS ---
History of Present Illness Date of Admission: 12/23/20 The patient is a 65 year old F presented to the ER due to right-sided abdominal pain. Patient states she has had abdominal pain for about the last couple days but got a lot worse overnight. Patient did have nausea denies any vomiting. Patient has had some diarrhea over the last couple days. Patient CT abdomen pelvis did show acute appendicitis with a 7 mm appendicolith in the proximal appendix. Patient last ate last night at 7 PM. Patient's only abdominal surgery is a tubal ligation. Past Medical History Past Medical History (Chronic Problems): Chronic Problems Irritable bowel syndrome (Chronic) GERD (gastroesophageal reflux disease) (Chronic) Elevated blood sugar (Chronic) Migraines (Chronic) Diverticulosis (Chronic) Dyslipidemia (Chronic) Medical History: Medical History (Last Updated 12/23/20 @ 11:[address] 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 Smoking Status: Never smoker - *Family History Maternal History Items: Cancer - colon, has had a DVT after being diagnosed with cancer Paternal History Items: Heart Disease - in her father who had a CABG....she does not know much more about her father's hx Sibling History Items: Cancer - lung Cancer in brother who also had a DVT Review of Systems Constitutional: Reports: Anorexia Eyes: Denies: Blurred vision VTE Information - Inpt Only VTE Present on Admission: Yes VTE Mechan Device Prophylaxis: SCD's - Physical Exam Vitals/I&O's: Vital Signs Temp Pulse Resp BP Pulse Ox 99.0 F 78 16 149/78 H 93 12/23/20 09:36 12/23/20 09:36 12/23/20 09:36 12/23/20 09:36 12/23/20 09:36 Oxygen Delivery Method Room Air Weight: 172 lb 6.424 oz Body Mass Index (BMI) 28.7 Intake and Output for Last 24 Hours 12/21/20 12/22/20 12/23/20 23:59 23:59 23:59 Intake Total 1000 / 1000 Balance 1000 / 1000 General: Alert, Oriented x3, Cooperative, No apparent distress Lungs: Normal air movement Cardiovascular: Regular rate Abdomen: Soft, Non-Distended, Tender - RLQ>right mid abd, no PS Extremities: No clubbing, No cyanosis, No edema Neurological: Cranial nerves II-XII grossly intact Psych/Mental Status: Normal Affect Laboratory Results 12/23/20 07:00: Urine Color Yellow, Urine Clarity Sl. Cloudy, Urine pH 8.0, Ur Specific [place] 1.015, Urine Protein Negative, Urine Glucose (UA) Normal, Urine Ketones Negative, Urine Occult Blood Negative, Urine Nitrite Negative, Urine Bilirubin Negative, Urine Urobilinogen Normal, Ur Leukocyte Esterase Negative, Urine RBC 0 SEEN, Urine WBC 0 SEEN, Ur Squamous Epith Cells 0-5 SEEN, Amorphous Sediment 1+ PHOS, Urine Bacteria 1+, Urine Mucus 0 SEEN 12/23/20 07:15: WBC 10.1, RBC 5.24, Hgb 15.5 H, Hct 47.3 H, MCV 90.3, MCH 29.6, MCHC 32.8, RDW Std Deviation 43.4, RDW Coeff of James 13.1, Plt Count 181, MPV 9.8, Immature Gran % (Auto) 0.300, Neut % (Auto) 80.3 H, Lymph % (Auto) 11.5 L, Cuming % (Auto) 6.8, Eos % (Auto) 0.8, Baso % (Auto) 0.3, Absolute Neuts (auto) 8.1 H, Absolute Lymphs (auto) 1.17, Nucleated RBC % 0 12/23/20 07:15: Sodium 137, Potassium 4.4, Chloride 102, Carbon Dioxide 30.0, Anion Gap 5, BUN 11, Creatinine 1.03 H, Estim Creat Clear Calc 49.65, Est GFR (MDRD) Af Amer 69, Est GFR (MDRD) Non-Af 57 L, BUN/Creatinine Ratio 10.7, Glucose 147 H, Calcium 9.2, Total Bilirubin 1.10 H, AST 21, ALT 53, Alkaline Phosphatase 88, Total Protein 7.1, Albumin 3.8, Globulin 3.3, Albumin/Globulin Ratio 1.2, Lipase 88 Current Medications Piperacillin Sod/Tazobactam (Sod 4.5 gm/ Sodium Chloride) 100 mls @ 200 mls/hr IV X1 ONE Stop: 12/23/20 10:40 Assessment/Plan All Active Problems Chest pain (Acute) Palpitations (Acute) Panic attack as reaction to stress (Acute) Insomnia (Acute) 65-year-old female with acute appendicitis 1. Discussed procedure laparoscopic appendectomy, possible open, possible bowel resection along with the risk but not limited to bleeding, infection/abscess, injury to another organ (small bowel, colon, etc.), adhesion, hernia at incision sites, and anesthesia. Carmen Sutton M.D. Pager: [phone] [facility] [address] [place] [address], [address] [place] [address] Office: [phone] Procedure Criteria Procedure Type: Elective COVID Risk Discussion: The surgeon/proceduralist and patient have discussed in detail the risk of exposure to and/or potential harm posed by the COVID-19 virus with having a surgery/procedure at this time versus the risk of delaying the surgery/procedure. It is not possible to know either the risk of delaying the surgery or procedure or chance of getting an infection with perfect accuracy, but a joint decision was made between the patient and the surgeon/proceduralist to proceed at this time with the scheduled surgery/procedure as indicated on the consent form.
--- NOTE | 2020-12-23 11:55 | APP_PTH ---
PATIENT: ANNEMARIE FULLER LOC: MS3 U#:[id number] AGE/SX: 65/F ROOM: ID313 RE12/23/[address]: Dr. Carmen Sutton MD : [id number] BED: 1 DIS: 12/24/2020 SPEC #: [id number] RECD: 12/23/20 13:55 STATUS: HARMEET RODRICK #: [id number] CORAL: 12/23/20 11:[address]: Carmen Sutton DEPT: SURGICAL PATHOLOGY RECD BY: Anastasia Vigil ENTERED: 12/26/20 08:26 SP TYPE: APPENDIX OTHR DR: Dr. Sathish Copeland, DO Tissues: Appendix, NOS Procedures: Surgery Specimen Level III HEADER OPERATION: Laparoscopic appendectomy PRE-OP DIAGNOSIS: Appendicitis TISSUE SUBMITTED: Appendix MICROSCOPIC DIAGNOSIS Appendix, appendectomy: Acute appendicitis and periappendicitis. MÓNICA:samreen 12/27/2020 MICROSCOPIC DESCRIPTION Slides are reviewed. GROSS DESCRIPTION Received in fixative is one container labeled with the patient's name and designated appendix. The specimen consists of an appendix measuring 6 cm in length and up to 1.5 cm in diameter. Most of the appendix appears dilated except distal 1 cm tip of the portion which measures 0.2 cm in diameter. The attached periappendiceal adipose tissue measures up to 1.5 cm in width. No obvious perforation is identified. The serosa is focally covered with bowman, purulent exudate. The lumen is filled with fecal material. No fecalith is identified. Gaming Dealer sections are submitted in two cassettes. / SJ:rg 12/26/20 TC:2 CPT: 64040
[2020-12-23] MEDS: Bupiv/Epi 0.5% Mpf 30 ML Vial (12:49)
--- NOTE | 2020-12-23 12:50 | PCM.OPRPT ---
Report of Operation Date of Procedure: 12/23/20 Pre-Operative Diagnosis: Acute appendicitis Post-Operative Diagnosis: Same Surgery/Procedure Performed:: Laparoscopic appendectomy Type of Anesthesia:: Local MAC Anesthesiologist: Collins Mendoza Special Medications: Zosyn 4.5 g IV x1 Specimen's removed: Appendix Estimated Blood Loss (mL): 25 cc Fluids Replaced: 700 cc Description of Procedure: Indications: 65-year-old female presented to the ER with new right lower quadrant pain last night/this morning. On workup she was found to have acute appendicitis on CT and a leukocytosis of 10 with a left shift. Patient was started on antibiotics in the ER for acute appendicitis-Zosyn 4.5 g IV x1 Description of the procedure: The patient was placed on operating table in supine position. General anesthesia was induced. A timeout was completed verifying correct patient, procedure, position and special equipment prior to beginning procedure. Abdomen was prepped and draped in usual sterile fashion. Incision was made in the natural skin line above the umbilicus with a 15 blade scalpel. The fascia was elevated and incised. Entry into the peritoneum was confirmed visually and no bowel was noted in the vicinity of the incision. The Simons trocar was placed under direct vision. Abdomen insufflated with a pressure of 12-15 mmHg. Patient tolerated insertion well. The scope was inserted and the abdomen inspected. No injuries from initial trocar placement were noted. Minimal amount of fluid was seen in the right lower quadrant. An direct visualization 2 -5 mm trocars were placed one above the symphysis pubis and below the hairline and one in the left lower quadrant lateral to the rectus muscle. Care is taken to avoid injury to the bladder and inferior epigastric vessels. The table was placed in Trendelenburg position with the right side elevated. The appendix was grasped with atraumatic grasper and elevated. It was noted to be dilated/inflamed. A window was developed in the mesoappendix at the point between the base of the appendix and the cecum. An endoscopic 45 mm linear cutting stapler blue load was then used to divide and staple the base of the appendix. There was some bleeding from the appendiceal artery due to inflammation and appendix pulling away during the dissection, bleeding was controlled with 5 mm clips. The appendix was withdrawn into the Simons trocar after being placed endoscopic retrieval bag. Appendix was sent to pathology. The appendiceal stump was then irrigated and hemostasis was assured. Fluid was suctioned no other pathology was identified. Secondary trochars were removed under direct visualization. No bleeding was noted trocar sites. The laparoscope withdrawn and the umbilical trocar removed. The abdomen was allowed to collapse. Local anesthesia of 19 mL of 0.5% Marcaine was used at the incision sites. The umbilical trocar site was closed with the [id number] 0 Vicryl suture. The skin was closed up to clear sutures of 4-0 Monocryl and Steri-Strips. The patient was extubated. The patient tolerated the procedure well and was taken to the postanesthesia care unit in satisfactory condition. - Complications none
--- NOTE | 2020-12-23 16:46 | PCM.DC.APPY ---
Discharge Diet: Light diet - advance as tolerated Discharge Activity: May not drive while taking narcotic pain medications. May shower in (days): 1 Lifting Restrictions: no lifting >20 lb x2 weeks, no strenuous exercise x 4wks Call your doctor if your incision/area has: Continuous Slow Oozing, Sudden Increased Bleeding, Increased Pain/ Swelling, Increased Redness, Foul Smelling Discharge, Swelling at the incision site Call your doctor if you observe: Fever of 101 or Higher Remove Dressing in (days):: 1 - Steris will stay on for 7-10 days- okay to remove after 10 days Medications to take at Discharge RX: ALPRAZolam [Xanax] 0.25 mg PO TID PRN PRN #20 tablet 10/28/14 Aspirin [Aspirin, Baby] 81 mg PO DAILY@0800 12/23/20 Oxycodone HCl/Acetaminophen [Percocet 5/325] 1 - 2 tablet PO Q6H PRN PRN 3 Days #15 tablet 12/23/20 RX: Metoprolol Succinate mg PO DAILY 12/23/20 Allergies/Adverse Reactions: Allergies clarithromycin [From Biaxin] Allergy (Verified 12/23/20 06:37) Diarrhea prednisone Allergy (Verified 12/23/20 06:37) Nausea rizatriptan benzoate [From Maxalt] Allergy (Verified 12/23/20 06:37) Unknown The following prescriptions were given: Oxycodone HCl/Acetaminophen [Percocet 5/325] 1 - 2 tablet PO Q6H PRN PRN 3 Days #15 tablet PRN Reason: Pain Transmission Status: Pending to [facility] Primary Care Physician: Sathish Copeland DO [Primary Care Provider] - Test Results: Test results from this visit will be discussed in further detail at your follow-up appointment, if applicable. Please Follow Up With: Carmen Sutton MD - after 5pm/weekends call [phone] with any concerns When: call office on Saturday for f/u appt in 2 wks Proposed Discharge Date: 12/23/20
[2020-12-23] MEDS: oxyCODONE 5 MG Tablet PO (19:10)
[2020-12-23] MEDS: Acetaminophen 325 MG Tablet 650 MG PO (21:49)
[2020-12-24] MEDS: 0.9% Normal Saline 1,000 ML 100 ML IV (01:22)
[2020-12-24] MEDS: oxyCODONE 5 MG Tablet PO (01:28)
[2020-12-24 03:18] VITALS: BP 110/54; PULSE 66; RESP 16; TEMP 36.9; O2SAT 95
[2020-12-24 03:22] VITALS: BMI 30.2
--- NOTE | 2020-12-24 08:13 | PN.SURG_ITS ---
Subjective: Patient is doing well tolerating diet, ambulating, pain controlled. - Physical Exam Vitals/I&O's: Vital Signs Temp Pulse Resp BP Pulse Ox 98.5 F 66 16 110/54 L 95 12/24/20 03:18 12/24/20 03:18 12/24/20 03:18 12/24/20 03:18 12/24/20 03:18 Oxygen Flow Rate (L/min) 2 Oxygen Delivery Method Room Air Weight: 181 lb 7.047 oz Body Mass Index (BMI) 30.2 Intake and Output for Last 24 Hours 12/22/20 12/23/20 12/24/20 23:59 23:59 23:59 Intake Total 2138.33 / 2138.33 1778.33 / 1778.33 Output Total 450 / 450 1050 / 1050 Balance 1688.33 / 1688.33 728.33 / 728.33 General: Alert, Oriented x3, Cooperative, No apparent distress Lungs: Normal air movement Cardiovascular: Regular rate Abdomen: Soft, Non-Distended, Tender - Near incisions clean dry and intact, mild right lower quadrant, no peritoneal signs Extremities: No clubbing, No cyanosis, No edema Neurological: Cranial nerves II-XII grossly intact Psych/Mental Status: Normal Affect Microbiology Past 72 Hours 12/23/20 09:35 Mucosa - Nose SARS-CoV-2 Antigen (Rapid) - Final Current Medications Acetaminophen (Acetaminophen 325 Mg Tablet) 650 mg PO Q6H PRN PRN PRN Reason: PAIN Last Admin: 12/23/20 21:49 Dose: 650 mg Documented by: Alprazolam (Alprazolam 0.25 Mg Tablet) 0.25 mg PO TID PRN PRN PRN Reason: ANXIETY Sodium Chloride () 1,000 mls @ 100 mls/hr IV .Q10H QUEENIE Last Admin: 12/24/20 01:22 Dose: 100 mls/hr Documented by: Sodium Chloride () 250 mls @ 15 mls/hr IV .[id number] PRN PRN Reason: Saline Flush Morphine Sulfate (Morphine 2 Mg/Ml Syringe) 2 - 4 mg IV Q2H PRN PRN PRN Reason: PAIN Morphine Sulfate (Morphine 4 Mg/Ml Syringe) 2 - 4 mg IV Q2H PRN PRN PRN Reason: PAIN Ondansetron HCl (Ondansetron 4 Mg/2 Ml Vial) 4 mg IV Q8H PRN PRN PRN Reason: NAUSEA Oxycodone HCl (Oxycodone 5 Mg Tablet) 5 - 10 mg PO Q4H PRN PRN PRN Reason: Pain Score 6-10 Last Admin: 12/24/20 01:28 Dose: 5 mg Documented by: Sodium Chloride (0.9% Saline Lock 10 Ml Syringe) 10 - 40 ml IV UD PRN PRN Reason: SALINE FLUSH Medical Necessity - Tobacco Use Smoking Status: Never smoker Assessment/Plan All Active Problems (Last Updated 12/23/20 @ 11:[address] Carmen Sutton MD) Insomnia (Acute) Palpitations (Acute) Chest pain (Acute) Panic attack as reaction to stress (Acute) 65-year-old female with acute appendicitis stop day 1 status post laparoscopic appendectomy 1. Is doing well tolerating diet, pain controlled, ambulating okay to [place] home. Carmen Sutton M.D. Pager: [phone] [facility] [address] [place] [address], [address] [place] [id number] Office: [phone]
[2020-12-24 08:49] VITALS: BP 127/65; PULSE 69; RESP 16; TEMP 36.6; O2SAT 93
== END 2020-12-24 10:30 | disposition home or self-care (01) ==
LOC: ED 07:35 → SDC 09:59 → ACINP 10:00 → AC 10:46 → SDC 13:05 → MS3 13:05
PROVIDERS: Admitting Provider Surgery; Emergency Provider Emergency Medicine; PCP Family Medicine; Visit Provider Surgery
PROC: 0DTJ4ZZ Resection of Appendix, Percutaneous Endoscopic Approach (ICD-10-PCS; CPT 44970; principal; 2020-12-23 11:35)
DX: K35.80 Unspecified acute appendicitis (principal); E78.00 Pure hypercholesterolemia, unspecified; I10 Essential (primary) hypertension; Z79.899 Other long term (current) drug therapy; Z79.82 Long term (current) use of aspirin; K21.9 Gastro-esophageal reflux disease without esophagitis; K38.1 Appendicular concretions; K58.9 Irritable bowel syndrome, unspecified; E78.5 Hyperlipidemia, unspecified
CPT/HCPCS: 00840; 44970; 74177; 80053; 81001; 83690; 85025; 87426; 88304; 93005; 96361; 96374; 96375; 96376; 99218; 99251; 99283; J7030; Q9967; A4216; C1760; G0378; G0463; J2405

== ENCOUNTER 2021-01-23 14:19 | Emergency (ER) | payer OTHER, SELFPAY ==
[2020-12-23 15:05] VITALS: BMI 30.2
[2021-01-23 14:21] VITALS: BP 201/73; PULSE 64; RESP 18; TEMP 36.2; O2SAT 96; BMI 28.1
[2021-01-23 14:24] VITALS: BP 201/73; PULSE 64; RESP 18; O2SAT 96
--- NOTE | 2021-01-23 14:25 | EKG12_ITS ---
Test Reason : EPIGASTRIC PAIN Blood Pressure : / mmHG Vent. Rate : 064 BPM Atrial Rate : 064 BPM P-R Int : 126 ms QRS Dur : 082 ms QT Int : 412 ms P-R-T Axes : 013 -03 061 degrees QTc Int : 425 ms Normal sinus rhythm Poor R wave progression Confirmed by NISHI WANG, BRYAN ([id number]), associate entertainment editor PENELOPE FRANCO ([id number]) on 01/25/2021 8:58:51 AM Referred By: KEENAN
[2021-01-23 14:50] LABS: Absolute Lymphocyte Count 1.96 X10^3/uL (0.83-4.51); Absolute Neutrophil Count 2.1 X10^3/uL (2.0-7.7); Basophil# 0.03 X10^3/uL; Basophil% 0.6 % (0-1); Eosinophil# 0.32 X10^3/uL; Eosinophils% 6.7 % (0-5); Hematocrit 48.3 % (37-47); Hemoglobin 15.3 g/dL (12.0-15.0); Lymphocyte # 1.96 X10^3/ul (0.83-4.51); Lymphocyte % 41.2 % (19-41); Mean Corp Hgb Conc 31.7 g/dL (32-36); Mean Corpuscular Hgb 28.8 pg (27.0-32.0); Mean Corpuscular Volume 90.8 fL (81-99); Mean Platelet Vol. 10.2 fl (6.2-12.0); Monocyte# 0.39 X10^3/uL; Monocyte% 8.2 % (0-10); NRBC Flagged by Analyzer 0 % (0-5); Neutrophil # 2.05 X10^3/uL (2.7-7.7); Neutrophil % 43.1 % (47-70); Platelet Count 191 K/mm3 (150-450); RBC Distribution Width CV 13.3 % (11.6-14.6); RBC Distribution Width SD 44.2 fl (35.1-43.9); Red Blood Count 5.32 M/mm3 (4.2-5.4); White Blood Count 4.8 K/mm3 (4.4-11.0)
[2021-01-23 15:08] LABS: Anion Gap 9 (5-15); BUN 20 mg/dL (7-18); BUN/Creat Ratio 15.3 RATIO (10-20); Calcium,Total 9.3 mg/dL (8.5-10.1); Chloride 103 mmol/L (98-107); Creatinine, Serum 1.31 mg/dL (0.55-1.02); EST Glomerular Filtration Rate 43 mL/min (>60); Est Glom Filt Rate - Afr Amer 52 mL/min (>60); Estimated Creatinine Clearance 39.04 ml/min; Glucose 106 mg/dL (74-106); Potassium 4.3 mmol/L (3.5-5.1); Sodium Level 139 mmol/L (136-145)
--- NOTE | 2021-01-23 15:35 | EDS_ITS ---
HPI HPI - GI History of Present Illness Chief Complaint: Abd Pain Informant: patient Abdominal Pain/Flank Pain Onset: Days (3-4) Context: Gradual Onset Timing: Continuous (has not gone away completely at all) and Waxes and wanes Quality: Aching Location: Epigastric (and often in a band-like distribution across upper abd; occ radiates into mid-low back) Current Severity: 2/10 Maximum Severity: 9/10 Worsened by: Food Relieved by: Nothing Nausea/Vomiting/Emesis GI Symptom: Positive for Nausea; Negative for Vomiting Diarrhea/Melena/Hematochezia GI Symptom: Positive for Diarrhea; Negative for Melena and Hematochezia Stool Quality: Positive for Loose Severity: Mild Associated Symptoms Associated Symptoms: Positive for Dysuria (for last month, since appendectomy) and Frequency; Negative for Hematuria and Urgency Narrative Narrative: Patient presenting with abdominal pain colicky along with nausea upper abdomen occasionally radiating into the back for the last 3 or 4 days, no fevers or chills no vomiting although she has felt like it. Had an appendectomy a month ago, and states during the work-up, gallstones were noted. Other than a tubal, no other abdominal surgeries in the past. She denies any jaundice or itching. [facility] Medical History (Updated 01/23/21 @ 20:[address] Henrry Zhao MD) Diverticulosis Dyslipidemia GERD (gastroesophageal reflux disease) HTN (hypertension) Insomnia Irritable bowel syndrome Migraines Mixed anxiety and depressive disorder Home Medications alprazolam 0.25 mg PO TID PRN PRN #20 tablet 10/28/14 [Rx Last Taken Unknown] aspirin 81 mg PO DAILY@0800 12/23/20 [History Last Taken Unknown] metoprolol succinate 25 mg PO DAILY 12/23/20 [History Last Taken Unknown] cholecalciferol (vitamin D3) [Vitamin D3] 25 mcg PO DAILY 01/23/21 [History Last Taken Unknown] hydrocodone-acetaminophen 1 tab PO Q4H PRN PRN 2 Days #12 tablet 01/23/21 [Rx Last Taken Unknown] pantoprazole [Protonix] 40 mg PO DAILY #30 tab 01/23/21 [Rx Last Taken Unknown] Allergy/AdvReac Type Severity Reaction Status Date / Time clarithromycin [From Biaxin] Allergy Diarrhea Verified 01/23/21 14:20 prednisone Allergy Nausea Verified 01/23/21 14:20 rizatriptan benzoate Allergy Unknown Verified 01/23/21 14:20 [From [facility]] Surgical History History of appendectomy (~12/2020) History of bilateral tubal ligation Social History Smoking Status: Never smoker ROS ROS ED Constitutional Constitutional ED: Denies chills or fever(s) Eyes Eyes: Denies change in vision or diplopia ENT ENT ED: Denies rhinorrhea or sore throat Cardiovascular Cardiovascular: Denies chest pain or palpitations Respiratory/Chest Respiratory/Chest: Denies cough or dyspnea Gastrointestinal Gastrointestinal: Reports as per HPI, abdominal pain and nausea; Denies diarrhea or vomiting Genitourinary Genitourinary ED: Denies dysuria or hematuria Musculoskeletal Musculoskeletal: Reports as per HPI and back pain; Denies neck pain Integumentary Denies abscess or rash Neurologic Neurologic: Denies headache(s), paresthesias or weakness Psychiatric Psychiatric: Denies anxiety or suicidal thoughts EXAM Physical Exam Const Vital Signs: 01/23/21 14:21 01/23/21 14:24 01/23/21 15:51 Temperature 97.2 F L 98.0 F Temperature Source Temporal Oral Pulse Rate 64 64 58 L Respiratory Rate 18 18 16 Blood Pressure 201/73 H 201/73 H 159/81 H Blood Pressure Mean 115 115 107 Pulse Ox 96 96 95 Oxygen Delivery Method Room Air Room Air Room Air 01/23/21 16:41 01/23/21 19:41 Temperature Temperature Source Pulse Rate 62 58 L Respiratory Rate 18 18 Blood Pressure 168/74 H 164/93 H Blood Pressure Mean 105 116 Pulse Ox 95 95 Oxygen Delivery Method Room Air Room Air Positive well nourished and well developed General Appearance ED: well developed and NAD HEENT Reports moist mucous membranes normocephalic and atraumatic Eyes PERRL and EOMs intact bilaterally Neck full ROM and supple Resp normal respiratory effort and clear to auscultation bilaterally Cardio regular rate, regular rhythm and no murmurs GI non-distended Auscultation: normoactive bowel sounds Palpation: soft and tender epigastric (mostly), LUQ and RUQ Back/Spine no CVA tenderness General Back: other FROM Extremity normal to inspection General Extremety ED: Negative for edema, pulses abnormal or tenderness General Extremity: Negative for edema or pulses abnormal Neuro oriented x3, CN's II-XII intact bilaterally and no sensory deficits noted Sensorium / Orientation: awake and alert Motor Exam: strength 5/5 throughout Skin no rashes or lesions noted and no wounds MDM MDM MDM Narrative Medical decision making narrative: Patient was treated with Zofran and Toradol, her pain improved and she remained stable without the need for any further treatment in the emergency department. Her work-up shows a normal white blood count, normal liver enzymes, and an ultrasound showing a single gallstone without signs of acute cholecystitis. She did have slight dilatation of her common bile duct. I discussed with Dr. Sutton, on for surgery, she reviewed the images and since her labs are normal, without evidence of acute cholecystitis, and her symptoms are easily controlled at this time and she has not been actively avoiding fats or greasy foods, she advises close outpatient follow-up at home with instructions to avoid these foods, and to put her on Protonix in case this is not related to her gallbladder which I agree with. I discussed all this with the patient, in addition to prescribing her [place] in case she has pain that she wants to treat, we discussed reasons to return she is comfortable with that plan. Lab Data Attestation: I reviewed the patient's lab results. Labs: Laboratory Results - last 24 hr 01/23/21 01/23/21 01/23/21 14:40 14:40 14:40 WBC 4.8 RBC 5.32 Hgb 15.3 H Hct 48.3 H MCV 90.8 MCH 28.8 MCHC 31.7 L RDW Std Deviation 44.2 H RDW Coeff of James 13.3 Plt Count 191 MPV 10.2 Immature Gran % (Auto) 0.200 Neut % (Auto) 43.1 L Lymph % (Auto) 41.2 H Camden % (Auto) 8.2 Eos % (Auto) 6.7 H Baso % (Auto) 0.6 Absolute Neuts (auto) 2.1 Absolute Lymphs (auto) 1.96 Nucleated RBC % 0 Sodium 139 Cancelled Potassium 4.3 Cancelled Chloride 103 Cancelled Carbon Dioxide 27.0 Cancelled Anion Gap 9 Cancelled BUN 20 H Cancelled Creatinine 1.31 H Cancelled Estim Creat Clear Calc 39.04 Est GFR (MDRD) Af Amer 52 L Cancelled Est GFR (MDRD) Non-Af 43 L Cancelled BUN/Creatinine Ratio 15.3 Cancelled Glucose 106 Cancelled Calcium 9.3 Cancelled Total Bilirubin 0.60 Cancelled AST 25 Cancelled ALT 46 Cancelled Alkaline Phosphatase 86 Cancelled Troponin I < 0.015 Total Protein 7.6 Cancelled Albumin 3.9 Cancelled Globulin 3.7 Cancelled Albumin/Globulin Ratio 1.1 Cancelled Lipase 149 Urine Color Urine Clarity Urine pH Ur Specific Ca[place]field Urine Protein Urine Glucose (UA) Urine Ketones Urine Occult Blood Urine Nitrite Urine Bilirubin Urine Urobilinogen Ur Leukocyte Esterase Urine RBC Urine WBC Ur Squamous Epith Cells Urine Bacteria Urine Mucus 01/23/21 15:45 WBC RBC Hgb Hct MCV MCH MCHC RDW Std Deviation RDW Coeff of James Plt Count MPV Immature Gran % (Auto) Neut % (Auto) Lymph % (Auto) Camden % (Auto) Eos % (Auto) Baso % (Auto) Absolute Neuts (auto) Absolute Lymphs (auto) Nucleated RBC % Sodium Potassium Chloride Carbon Dioxide Anion Gap BUN Creatinine Estim Creat Clear Calc Est GFR (MDRD) Af Amer Est GFR (MDRD) Non-Af BUN/Creatinine Ratio Glucose Calcium Total Bilirubin AST ALT Alkaline Phosphatase Troponin I Total Protein Albumin Globulin Albumin/Globulin Ratio Lipase Urine Color Yellow Urine Clarity Clear Urine pH 5.0 Ur Specific [place]field 1.020 Urine Protein Negative Urine Glucose (UA) Normal Urine Ketones Negative Urine Occult Blood Negative Urine Nitrite Negative Urine Bilirubin Negative Urine Urobilinogen Normal Ur Leukocyte Esterase Negative Urine RBC 0-5 SEEN Urine WBC 0 SEEN Ur Squamous Epith Cells 0-5 SEEN Urine Bacteria 0 SEEN Urine Mucus 0 SEEN Radiography Diagnostic Testing: Radiology Impression Gallbladder Ultrasound 01/23/21 17:53 IMPRESSION: Hyperechoic and sound attenuating liver without evidence of contour nodularity. Findings are nonspecific and may be consistent with sequelae of fatty infiltration or other forms of diffuse liver disease. No evidence of focal hepatic mass. Cholelithiasis. No evidence of acute cholecystitis. Mild dilatation of the common bile duct could represent choledocholithiasis. Electronically Signed: Faheem Landon MD at 19:06 EDT Tel , Service support , Discharge Plan Triage Chief Complaint: Abd Pain ED Provider: Henrry Zhao Dx/Rx/DC Orders Clinical Impression: Acute upper abdominal pain, Cholelithiasis Instructions: ED Diet, Low Fat, ED Gallstones with Biliary Colic, ED Epigastric Pain (Uncertain Cause) Prescriptions: New hydrocodone-acetaminophen 5-325 mg tablet 1 tab PO Q4H PRN PRN (Reason: Pain) 2 Days Qty: 12 RF: 0 pantoprazole [Protonix] 40 mg tablet,delayed release (DR/EC) 40 mg PO DAILY Qty: 30 RF: 0 No Action alprazolam 0.25 MG tablet 0.25 mg PO TID PRN PRN (Reason: Anxiety) Qty: 20 RF: 0 metoprolol succinate 25 MG tablet extended release 24 hr 25 mg PO DAILY RF: 0 aspirin 81 MG tablet,chewable 81 mg PO DAILY@0800 RF: 0 cholecalciferol (vitamin D3) [Vitamin D3] 25 mcg (1,000 unit) Tablet 25 mcg PO DAILY RF: 0 Primary Care Provider: Sathish Copeland Referrals: Sathish Copeland DO [Primary Care Provider] - Carmen Sutton MD [STAFF PHYSICIAN] - 3-5 Days Disposition Disposition: Home, self care
[2021-01-23] MEDS: Ketorolac 15 MG/ML Vial IV (15:48)
[2021-01-23] MEDS: 0.9% Normal Saline 1,000 ML 250 ML IV (15:48)
[2021-01-23] MEDS: Ondansetron 4 MG/2 ML Vial IV (15:48)
[2021-01-23 15:50] LABS: Bacteria 0 SEEN /hpf (None Seen); Mucous, Urine 0 SEEN /hpf (<or=2+); White Blood Cells 0 SEEN /hpf (0-5)
[2021-01-23 15:51] VITALS: BP 159/81; PULSE 58; RESP 16; TEMP 36.7; O2SAT 95
[2021-01-23 16:25] LABS: Color, Urine Yellow (Yellow); Glucose, Dipstick Normal (Normal); Ketone-Dipstick Negative (Negative); Leukocyte Esterase-Dipstick Negative /ul (Negative); Nitrite-Dipstick Negative (Negative); Occult Blood-Urine Negative /ul (Negative); Protein-Dipstick Negative (Negative); Urine Bilirubin Dipstick Negative (Negative); Urine Clarity Clear (Clear); Urine Urobilinogen Normal (Normal)
[2021-01-23 16:31] LABS: ALB/GLOB Ratio 1.1 RATIO (0.9-2.4); AST(SGOT) 25 U/L (15-37); Alanine Aminotransfer ALT/SGPT 46 U/L (13-56); Albumin, Serum 3.9 g/dL (3.2-5.0); Alkaline Phosphatase 86 U/L (45-117); Globulin 3.7 g/dL (2.2-4.2); Protein, Total 7.6 g/dL (6.4-8.2)
[2021-01-23 16:33] LABS: Lipase 149 U/L (73-393)
[2021-01-23 16:39] LABS: Red Blood Cells-Urine 0-5 SEEN /hpf (0-5); Squamous Epithelial Cells - UA 0-5 SEEN /hpf (5-10)
[2021-01-23 16:41] VITALS: BP 168/74; PULSE 62; RESP 18; O2SAT 95
--- NOTE | 2021-01-23 17:53 | US_ITS ---
INDICATION: epigastric pain, n/v EXAMINATION: US Abdomen RUQ (limited) TECHNIQUE: Mendoza-scale and color Doppler imaging was performed of the right upper abdominal quadrant. COMPARISON: None. Findings: The liver is enlarged and diffusely homogenous with overall increased echogenicity and sound attenuation. It measures 17.2 cm. There is no evidence of contour nodularity. No focal hepatic mass is identified. The main portal vein is normal in size and patent demonstrating hepatopetal flow. The gallbladder is remarkable for a single layering stone however is without evidence of wall thickening or pericholecystic fluid. Sonographic Chew''s tenderness is not appreciated. There is no evidence of intrahepatic biliary ductal dilatation. The CBD is dilated measuring 8 mm at the level of the rolando hepatis. The visualized portions of the pancreas are unremarkable without evidence of focal or diffuse enlargement. Specifically, the tail is obscured by overlying bowel gas. Right kidney measures 11.3 cm in length. It is normal in echogenicity. No focal renal lesion is identified. There is no evidence of hydronephrosis. There is no free intraperitoneal fluid identified. US/Gallbladder IMPRESSION: Hyperechoic and sound attenuating liver without evidence of contour nodularity. Findings are nonspecific and may be consistent with sequelae of fatty infiltration or other forms of diffuse liver disease. No evidence of focal hepatic mass. Cholelithiasis. No evidence of acute cholecystitis. Mild dilatation of the common bile duct could represent choledocholithiasis. Electronically Signed: Faheem Landon MD at 19:06 EDT Tel , Service support ,
[2021-01-23 19:41] VITALS: BP 164/93; PULSE 58; RESP 18; O2SAT 95
[2021-01-23 20:21] VITALS: BP 185/84; PULSE 58; RESP 18; TEMP 36.9; O2SAT 98
== END 2021-01-23 20:22 | disposition home or self-care (01) ==
PROVIDERS: Emergency Provider Emergency Medicine; PCP Family Medicine
DX: K80.20 Calculus of gallbladder without cholecystitis without obstruction (principal); I10 Essential (primary) hypertension; E78.5 Hyperlipidemia, unspecified; K21.9 Gastro-esophageal reflux disease without esophagitis; K58.9 Irritable bowel syndrome, unspecified; F41.8 Other specified anxiety disorders; G47.00 Insomnia, unspecified; G43.909 Migraine, unspecified, not intractable, without status migrainosus; Z79.82 Long term (current) use of aspirin; Z79.899 Other long term (current) drug therapy
CPT/HCPCS: 76705; 80048; 80053; 81001; 83690; 84484; 85025; 93005; 96361; 96374; 96375; 99284; J7030; A4216; J2405

== ENCOUNTER 2021-02-07 08:51 | Day surgery (SDC) | payer OTHER, SELFPAY ==
[2021-01-31 13:45] VITALS: BMI 27.4
[2021-02-07] VITALS (9 sets, daily range): BP systolic 104–194; BP diastolic 65–87; PULSE 46–75; RESP 16–18; TEMP 35.9–37; O2SAT 92–100; BMI 27.8
[2021-02-07] MEDS: Lactated Ringers 1,000 ML 100 ML IV (09:50)
--- NOTE | 2021-02-07 10:10 | HP.PCM_ITS ---
History and Physical Date of Admission: 02/07/21 Date of Service: 01/31/21 MR#:[id number] Acct:[id number] Name: ANNEMARIE FULLER :1955 Age/Sex: 65/F Provider:Dr. Carmen Sutton MD Rep #:[id number] [facility]:Signed Intake Vital Signs 01/31/21 13:32 01/31/21 13:45 Height 5 ft 5 in Weight: 165 lb BMI 28.1 27.4 BP 173/89 H Blood Pressure Location Rt brachial Position Sitting Respiration 20 H Intake Visit Reasons: ER F/U GALLSTONE 01/24 Chief Complaint: Er f/u gallstones [employer] Required: No Is patient in pain?: No Allergies clarithromycin [From Biaxin] Allergy (Verified 01/31/21 13:45) Diarrhea prednisone Allergy (Verified 01/31/21 13:45) Nausea rizatriptan benzoate [From Maxalt] Allergy (Verified 01/31/21 13:45) Unknown Medications alprazolam 0.25 mg PO TID PRN PRN #20 tablet 10/28/14 [Rx Confirmed 01/31/21] aspirin 81 mg PO DAILY@0800 12/23/20 [History Confirmed 01/31/21] metoprolol succinate 25 mg PO DAILY 12/23/20 [History Confirmed 01/31/21] cholecalciferol (vitamin D3) [Vitamin D3] 25 mcg PO DAILY 01/23/21 [History Confirmed 01/31/21] hydrocodone-acetaminophen 1 tab PO Q4H PRN PRN 2 Days #12 tablet 01/23/21 [Rx Confirmed 01/31/21] pantoprazole [Protonix] 40 mg PO DAILY #30 tab 01/23/21 [Rx Confirmed 01/31/21] PFSH Medical History Diverticulosis Dyslipidemia GERD (gastroesophageal reflux disease) HTN (hypertension) Insomnia Irritable bowel syndrome Migraines Mixed anxiety and depressive disorder Surgical History History of appendectomy (~12/2020) History of bilateral tubal ligation Social History Smoking Status: Never smoker HPI HPI HPI: ANNEMARIE FULLER, is a 65 F who presents to the office today for epigastric pain right upper quadrant pain. Patient did go to the ER and had an ultrasound done which did show a gallstone, gallbladder wall with 3 mm, no pericholecystic fluid, CBD was 8 mm. Patient did have normal liver functions and a normal white blood cell count in the ER. Patient was asked to avoid any fatty or greasy foods. Patient states that since the ER she has been doing this and she has not had as much discomfort. As patient states pain was worse after eating fatty or greasy foods. Patient has had both of her Covid vaccine's. ROS General General: No weight change, appetite, fatigue, colon cancer, breast cancer or weakness HEENT HEENT: No difficulty swallowing, eye injury, eye surgery, swollen glands or hoarseness Endo Endocrine: No thyroid disease, diabetes mellitus, thyroid cancer, Hair loss, heat intolerance or cold intolerance Skin Skin: No rash or changing moles Breast Breast: No left breast lump, right breast lump, nipple discharge, breast pain, abnormal mammogram, abnormal US or breast enlargement Musc Musculoskeletal: No back problems, arthritis, rheumatoid arthritis, gout or joint pain Cardio Cardiovascular: Yes high blood pressure; No murmur, pacemaker, heart disease, atrial fibrillation, heart attack, heart stent, palpitations, shortness of breat with exertion or chest pain Psych Psychiatric: Yes depression and anxiety; No hearing voices Resp Respiratory: No shortness of breath, No sleep apnea, No cough, No COPD, No asthma, No emphysema and No wheezing Gastro Gastrointestinal: Yes abdominal pain, No nausea or vomiting, Yes diarrhea, Yes constipation, No blood in stool, Yes acid reflux, No hemorrhoids, No ulcers, No gallbladder problem and No black,tarry stools Austen Hematologic: No blood thinners, No blood disorders, No bleeding, No anemia and No blood clots Neuro Neurologic: No system reviewed and no additional complaints, except as docume nted, No as per HPI, No abnormal gait, No abnormal hearing, No abnormal movements, No abnormal speech, No behavioral changes, No burning sensations, No confusion, No convulsions, No disequilibrium, No dizziness, No localized weakness, No frequent falls, No headache(s), No lack of coordination, No loss of vision, No memory loss, No numbness, No other visual disturbances, No radicular pain, No restless legs, No sensory deficit, No syncope, No tingling, No tremor(s), No weakness and No other Exam Const General: cooperative, healthy appearing, comfortable and no acute distress Neck Neck: normal visual inspection Resp Effort & Inspection: normal respiratory effort Cardio Rate: regular rate GI Inspection: non-distended and incision (well healed from lap appy) Palpation: soft, no guarding and tender (Mild right upper quadrant, epigastric, No peritoneal signs) Skin General: no rashes or lesions noted Neuro General: patient oriented x3 Psych Affect: normal affect COVID (Procedure Consent) Procedure Criteria Procedure Criteria: Yes Elective The surgeon/proceduralist and patient have discussed in detail the risk of exposure to and/or potential harm posed by the COVID-19 virus with having a surgery/procedure at this time versus the risk of delaying the surgery/procedure. It is not possible to know either the risk of delaying the surgery or procedure or chance of getting an infection with perfect accuracy, but a joint decision was made between the patient and the surgeon/proceduralist to proceed at this time with the scheduled surgery/procedure as indicated on the consent form. Patient has had both doses of the Covid vaccine Assessment and Plan Assessment and Plan (1) Cholelithiasis: Status: Acute (2) RUQ pain: Status: Acute Plan - Dr. Carmen Sutton MD: Reviewed the anatomy with the patient and discussed the procedure: laparoscopic cholecystectomy with cholangiograms, possible open. Review risks including but not limited to bleeding, infection, hernia, bile leak, retained gallstones requiring another procedure ERCP- Endoscopic Retrograde Cholangiopancreatography, injury to another organ (bile ducts, common bile duct, small bowel, etc.) may require transfer to tertiary care facility and conversion to an open procedure. All questions were answered. Carmen Sutton M.D. Pager: [phone] [facility] [address] [place] [address], [facility], [address] [place] [id number] Office: [phone] Plan Details Follow Up: We will schedule lap gabi Coding Level of Care Code Off vis,est,level 3 Diagnoses Cholelithiasis K80.20 RUQ pain R10.11 02/02/21 0805<Electronically signed by Carmen Sutton MD>Date Carmen Sutton MD
[2021-02-07] MEDS: Cefazolin 2 GM in 0.9% Normal Saline 100 ML IV (10:19)
--- NOTE | 2021-02-07 10:30 | RAD_ITS ---
CLINICAL HISTORY: Female, 65 years old. Cholecystectomy PROCEDURE: CHOLANGIOGRAM - intraoperative CONSENT: Informed consent obtained SEDATION: General FLUOROSCOPY TIME (if supplied): (10) seconds Placement of the catheter and the procedure were performed by: Dr. Sutton Fluoroscopy was provided by RT Demetris, who was present in the room time of the procedure. TECHNIQUE: (All elements of maximal sterile barrier technique followed, including US elements as applicable) This was attempted postoperative cholangiogram. 2 attempts were made but both were unsuccessful. RAD/Cholangiogram/ O R,Initial IMPRESSION: Unsuccessful postoperative cholangiogram Electronically Signed: Rebel Manriquez MD at 11:46 EDT , Service support ,
--- NOTE | 2021-02-07 10:30 | GALL_PTH ---
PATIENT: ANNEMARIE FULLER LOC: [facility] U#:[id number] AGE/SX: 65/F ROOM: RE02/07/[address]: Dr. Carmen Sutton MD : 1955 BED: DIS: 02/07/2021 SPEC #: [id number] RECD: 02/07/21 12:25 STATUS: HARMEET RODRICK #: [id number] CORAL: 02/07/21 10:[address]: Carmen Sutton DEPT: SURGICAL PATHOLOGY RECD BY: Anastasia Vigil ENTERED: 02/07/21 13:03 SP TYPE: VIVIANE HUMPHRIES DR: Dr. Sathish Copeland, DO Tissues: Gallbladder, NOS Procedures: Surgery Specimen Level III HEADER OPERATION: Laparoscopic cholecystectomy PRE-OP DIAGNOSIS: Cholelithiasis, RUQ pain TISSUE SUBMITTED: Gallbladder MICROSCOPIC DIAGNOSIS Gallbladder, cholecystectomy: Cholesterolosis and chronic cholecystitis. AM:samreen 02/08/2021 MICROSCOPIC DESCRIPTION Slides are reviewed. GROSS DESCRIPTION Received is one container labeled with the patient's name and designated gallbladder. The specimen consists of a previously, partially opened gallbladder measuring 7 cm in length and 3 cm in diameter. The external surface is pink-thomas, smooth and glistening for the most part. Focally it is granular, hemorrhagic and contains cautery artifact. The gallbladder contains a small amount of green-yellow mucoid bile. No stones are identified in the container or in the gallbladder. The mucosa reveals a few small polyps measuring 0.1 to 0.2 cm in greatest dimension. The gallbladder wall measures up to 0.3 cm in thickness. Increased amount of subserosal fat is noted. [employer] sections from the gallbladder and the cystic duct are submitted in one cassette. / SJ:samreen 02/07/21 TC:3 [facility]: [id number]
[2021-02-07] MEDS: Bupivacaine Mpf 0.5% 30 ML VIAL (11:30)
--- NOTE | 2021-02-07 11:47 | OP.PCM_ITS ---
Report of Operation Date of Procedure: 02/07/21 Pre-Operative Diagnosis: Right upper quadrant pain, cholelithiasis Post-Operative Diagnosis: Same Surgery/Procedure Performed:: Laparoscopic cholecystectomy Surgeon: Carmen Sutton graphic manager: None ([facility]) graphic manager: OTHER Type of Anesthesia: General/Supplemental Anesthesiologist: Michael Mixon Special Medications: Ancef 2 g IV x1 Specimen's removed: Gallbladder Estimated Blood Loss (mL): < 10 CC Fluids Replaced: Per anesthesia Description of Procedure: Indications this is a 65 year-old female who developed abdominal pain/nausea/vomiting and on workup was found to have cholelithiasis, with a normal common bile duct. Laparoscopic cholecystectomy was elected. Description procedure: The patient was placed on operating table in supine position. General Anesthesia was induced. A timeout was completed verifying correct patient, procedure, site, position and special equipment prior to beginning procedure. The abdomen was prepped and draped in usual sterile fashion. An incision was made in the natural skin line above the umbilicus. The fascia was elevated and incised. The peritoneum was elevated and incised. Entry into the peritoneum was confirmed visually and no bowel was noted in the vicinity of the incision. Simons trocar was placed. The abdomen was insufflated with carbon dioxide to a pressure of 12-15 mmHg. Patient tolerated insufflation well. The laparoscope was then inserted and abdomen inspected. No injuries from initial trocar placement were noted. Additional trochars were then inserted in the following locations 5 mm trocar in the epigastrium and 2 more 5 mm trochars along the right costal margin. The abdomen was inspected no abnormalities were found. The table is placed in reverse Trendelenburg position with the right side up. The adhesions between the gallbladder and omentum were lysed sharply. The dome of the gallbladder was grasped with atraumatic grasper passed through the lateral port and retracted over the dome of the liver. Infundibulum was then grasped with atraumatic grasper through the midclavicular port and retracted to the right lower quadrant. This maneuver exposed Calot's triangle. The peritoneum overlying the gallbladder infundibulum was then incised and cystic duct and artery identified and circumferentially dissected. Attempted cholangiograms however unable to complete. The cystic duct and artery were then doubly clipped and divided close to the gallbladder. The gallbladder then dissected from its peritoneal attachments by electrocautery. Hemostasis was checked and the gallbladder and contained stones were removed using the endoscopic retrieval bag through the umbilical port. The gallbladder is passed off table as specimen. The gallbladder fossa was copious ly irrigated with saline and hemostasis obtained. There is no evidence of bleeding from the gallbladder fossa or cystic artery leakage of bile from the cystic duct stump. Secondary trochars removed under direct vision. No bleeding was noted the trocar sites. The laparoscope was withdrawn and umbilical trocar removed. The abdomen was allowed to collapse. The fascia of the 12 mm trocar was closed with a [id number] 0 PDS suture. The skin was closed with sutures of 4-0 Monocryl and Steri-Strips. The orogastric tube was removed and the patient was extubated. The patient tolerated procedure well and was taken to the postanesthesia care unit in stable condition. Complications None
--- NOTE | 2021-02-07 12:07 | EX.PCM.DISCH ---
Discharge Instructions Diet Discharge Diet: Light diet - advance as tolerated Activity Discharge Activity: May not drive while taking narcotic pain medications. May shower in (days): 1 Lifting Restrictions: no lifting >20 lbs x 2 wks, no strenuous exercise for 4 wks Dressing / Incision Call your doctor if your incision/area has: Continuous Slow Oozing, Sudden Increased Bleeding, Increased Pain/ Swelling, Increased Redness, Foul Smelling Discharge and Swelling at the incision site Call your doctor if you observe: Fever of 101 or Higher Remove Dressing in: 2 days Cleanse incision/area with: Soap & Water Additional Dressing/Incision Instructions:: Steri-Strips will fall off in 7 to 10 days, if they do not fall off okay to remove after 10 days. Follow Up Care Please Follow Up With: Carmen Sutton MD When: Call the office for a follow-up appointment 2 weeks; after 5 PM and on the weekends call [phone] with any concerns. Test Results: Test results from this visit will be discussed in further detail at your follow-up appointment, if applicable. Discharge Plan Admission Attending Provider: Carmen Sutton Primary Care Provider: Sathish Copeland Instructions Patient Instructions: ED Chest Pain, Noncardiac Discharge Orders/Prescriptions Prescriptions: New oxycodone-acetaminophen [Percocet] 5-325 mg tablet 1 - 2 tab PO Q6H PRN (Reason: pain) 3 Days Qty: 14 RF: 0 Continued metoprolol succinate 25 MG tablet extended release 24 hr 25 mg PO DAILY RF: 0 aspirin 81 MG tablet,chewable 81 mg PO DAILY@0800 RF: 0 cholecalciferol (vitamin D3) [Vitamin D3] 25 mcg (1,000 unit) Tablet 25 mcg PO DAILY RF: 0 pantoprazole [Protonix] 40 mg tablet,delayed release (DR/EC) 40 mg PO DAILY Qty: 30 RF: 0 alprazolam [Xanax] 0.25 MG tablet 0.25 mg PO TID PRN PRN (Reason: Anxiety) RF: 0 Referrals / Follow Up: Sathish Copeland DO [Primary Care Provider] - Disposition Disposition (needs filled in before D/C Order can be placed): Home, self care
[2021-02-07] MEDS: Acetaminophen 325 MG Tablet PO (14:20)
[2021-02-07] MEDS: oxyCODONE 5 MG Tablet PO (14:20)
== END 2021-02-07 14:55 | disposition home or self-care (01) ==
LOC: SDC 08:53 → AC 08:54
PROVIDERS: PCP Family Medicine; Referring Provider Surgery; Visit Provider Surgery
PROC: (CPT 47610; principal; 2021-02-07 10:10)
DX: K80.10 Calculus of gallbladder with chronic cholecystitis without obstruction (principal); Z20.822 Contact with and (suspected) exposure to COVID-19; E78.5 Hyperlipidemia, unspecified; K21.9 Gastro-esophageal reflux disease without esophagitis; I10 Essential (primary) hypertension; K58.9 Irritable bowel syndrome, unspecified; F41.8 Other specified anxiety disorders; R73.03 Prediabetes; G43.909 Migraine, unspecified, not intractable, without status migrainosus; Z79.82 Long term (current) use of aspirin; Z79.899 Other long term (current) drug therapy
CPT/HCPCS: 47563; 74300; 76000; 88304; J7120; J2405

== ENCOUNTER → 2021-03-14 13:37 | Outpatient (CLI) | payer OTHER, SELFPAY ==
[2021-02-07 09:19] VITALS: BMI 27.8
--- NOTE | 2021-03-14 13:39 | BI_ITS ---
MAMMOGRAPHY - BILATERAL SCREENING 3-D TOMOSYNTHESIS REASON FOR EXAM: Female, 65 years old. Annual screening mammogram. PERTINENT HISTORY: No significant family history. TECHNIQUE: 2-D mammograms and 3-D Tomosynthesis of the breast (s) were performed. CAD was performed. COMPARISON: 10/06/2019, 09/20/2020. FINDINGS: The breast composition is almost entirely fat. Scattered benign calcifications are seen. No dense spiculated masses or suspicious microcalcifications are identified. No architectural distortion is identified. There is no skin thickening or retraction. Stable lymph nodes. There has been no significant change since the prior study. BI/SCRN MAMM (CAD)W/SHAWNA BILAT IMPRESSION: No mammographic signs of malignancy. Routine yearly mammograms recommended. ASSESSMENT CATEGORY: BIRADS Category 2: Benign. A letter regarding these results will be sent to the patient by the facility within 30 days. FOLLOW UP RECOMMENDATION: Yearly follow up mammogram recommended. (A) Approximately 10% of breast cancers are not detected by mammography. A normal mammogram should not delay biopsy of a clinically suspicious abnormality. Electronically Signed: Volodymyr Corea MD at 14:55 EDT , Service support ,
== END ==
PROVIDERS: PCP Family Medicine; Referring Provider Obstetrics & Gynecology; Visit Provider Obstetrics & Gynecology
DX: Z12.31 Encounter for screening mammogram for malignant neoplasm of breast (principal)
CPT/HCPCS: 77063; 77067

== ENCOUNTER → 2021-03-16 12:24 | Outpatient (CLI) | payer OTHER, SELFPAY ==
[2021-02-07 09:19] VITALS: BMI 27.8
--- NOTE | 2021-03-16 12:26 | BD_ITS ---
STUDY: DUAL ENERGY X-RAY ABSORPTIOMETRY / DXA REASON FOR EXAM: Female, 65 years old. N959. The patient is postmenopausal. Loss of height. TECHNIQUE: Bone Mineral Density (BMD) measurements of lumbar spine and bilateral hips were obtained. COMPARISON: None. FINDINGS: Lumbar Spine (L1-L4): g/cm2 (0.983) / T-score (-1.5) / Z-score (0.1) Findings are suggestive of osteopenia with a low fracture risk. Left Femur Total: g/cm2 (0.798) / T-score (-1.7) / Z-score (-0.5) Left Femoral Neck: g/cm2 (0.734) / T-score (-2.2) / Z-score (-0.7) Right Femur Total: g/cm2 (0.865) / T-score (-1.1) / Z-score (0.0) Right Femoral Neck: g/cm2 (0.825) / T-score (-1.5) / Z-score (-0.1) BD/Dexa Bone Density Study IMPRESSION: The patient is considered osteopenic as outlined below according to World [place] M Organization (WHO) criteria with a high fracture risk. Reference Information: The T-score is the number of standard deviations above or below the standard which is normal for young adults at their peak bone mineral density. The World Health Organization (WHO) interprets the T-scores as follows: Above -1 Normal bone density Between -1 and -2.5 Osteopenia Equal to / or below -2.5 Osteoporosis As a practical clinical guideline, osteopenia may be graded as follows: Mild -1 through -1.5 Moderate -1.6 through -2.0 Severe -2.1 through -2.4 The Z-score is the number of standard deviations above or below age-matched controls. A Z-score of less than -1.5 would be considered abnormal. References: 1. NIH Osteoporosis and Related Bone Diseases www osteo.org 2. International Society for Clinical Densitometry www iscd.org 3. National Osteoporosis Foundation www nof.org Electronically Signed: Slick Avina MD at 8:19 EDT , Service support ,
== END ==
PROVIDERS: PCP Family Medicine; Visit Provider Obstetrics & Gynecology
DX: N95.1 Menopausal and female climacteric states (principal)
CPT/HCPCS: 77080

== ENCOUNTER → 2021-06-09 07:02 | Outpatient (CLI) | payer OTHER, SELFPAY ==
[2021-06-09 10:05] LABS: Absolute Lymphocyte Count 1.95 X10^3/uL (0.83-4.51); Absolute Neutrophil Count 1.8 X10^3/uL (2.0-7.7); Basophil# 0.04 X10^3/uL; Basophil% 0.9 % (0-1); Eosinophil# 0.27 X10^3/uL; Eosinophils% 6.1 % (0-5); Hematocrit 45.6 % (37-47); Hemoglobin 14.5 g/dL (12.0-15.0); Lymphocyte # 1.95 X10^3/ul (0.83-4.51); Lymphocyte % 44.2 % (19-41); Mean Corp Hgb Conc 31.8 g/dL (32-36); Mean Corpuscular Hgb 29.5 pg (27.0-32.0); Mean Corpuscular Volume 92.9 fL (81-99); Mean Platelet Vol. 10.3 fl (6.2-12.0); Monocyte# 0.31 X10^3/uL; NRBC Flagged by Analyzer 0 % (0-5); Neutrophil # 1.83 X10^3/uL (2.7-7.7); Neutrophil % 41.6 % (47-70); Platelet Count 234 K/mm3 (150-450); RBC Distribution Width CV 13.1 % (11.6-14.6); RBC Distribution Width SD 44.6 fl (35.1-43.9); Red Blood Count 4.91 M/mm3 (4.2-5.4); White Blood Count 4.4 K/mm3 (4.4-11.0)
[2021-06-09 10:27] LABS: AST(SGOT) 20 U/L (15-37); Alanine Aminotransfer ALT/SGPT 41 U/L (13-56); Albumin, Serum 3.4 g/dL (3.2-5.0); Alkaline Phosphatase 63 U/L (45-117); Anion Gap 5 (5-15); BUN 18 mg/dL (7-18); BUN/Creat Ratio 20.5 RATIO (10-20); Calcium,Total 8.9 mg/dL (8.5-10.1); Chloride 105 mmol/L (98-107); Cholesterol 268 mg/dL (200); Creatinine, Serum 0.88 mg/dL (0.55-1.02); EST Glomerular Filtration Rate 69 mL/min (>60); Est Glom Filt Rate - Afr Amer 83 mL/min (>60); Globulin 3.5 g/dL (2.2-4.2); Glucose 106 mg/dL (74-106); High Density Lipoprotein 44 mg/dL; Potassium 4.6 mmol/L (3.5-5.1); Protein, Total 6.9 g/dL (6.4-8.2); Sodium Level 139 mmol/L (136-145); Thyroid Stim Hormone (TSH) 2.83 uIU/mL (0.358-3.74); Triglycerides 318 mg/dL; Very Low Density Lipoprotein 64 mg/dL (5-40)
[2021-06-09 10:28] LABS: Hemoglobin A1c 5.9 % (3.8-5.6)
== END ==
LOC: LAB 07:05 → MTLAB 07:35
PROVIDERS: PCP Family Medicine; Referring Provider Family Medicine; Visit Provider Family Medicine
DX: I10 Essential (primary) hypertension (principal); E78.5 Hyperlipidemia, unspecified; R73.03 Prediabetes
CPT/HCPCS: 36415; 80053; 80061; 83036; 84443; 85025

== ENCOUNTER → 2021-06-13 12:47 | Outpatient (CLI) | payer OTHER, SELFPAY ==
[2021-06-13 14:10] LABS: Ferritin 157 ng/mL (8-252)
[2021-06-15 17:17] LABS: Anti-Mitochondrial AB <20.0 Units (0.0-20.0)
[2021-06-15 17:18] LABS: ANTINUCLEAR ANTIBODIES DIRECT Negative (Negative)
[2021-06-21 00:07] LABS: Ceruloplasmin 23.5 mg/dL (19.0-39.0)
[2021-06-21 09:30] LABS: AFP, Tumor Marker 3.3 ng/mL (0.0-8.3); Anti-Smooth Muscle ABS 9 Units (0-19); Copper, Serum or Plasma 106 ug/dL (80-158)
== END ==
PROVIDERS: PCP Family Medicine; Referring Provider Internal Medicine Gastroenterology; Visit Provider Internal Medicine Gastroenterology
DX: K75.81 Nonalcoholic steatohepatitis (NASH) (principal)
CPT/HCPCS: 36415; 82105; 82390; 82525; 82728; 83516; 86038; 86225; 86235

== ENCOUNTER 2021-06-22 06:19 | Day surgery (SDC) | payer OTHER, SELFPAY ==
[2021-06-22] VITALS (7 sets, daily range): BP systolic 90–124; BP diastolic 41–73; PULSE 58–70; RESP 16–18; TEMP 35.8–36.3; O2SAT 96–99; BMI 26.3
[2021-06-22] MEDS: Lactated Ringers 1,000 ML 100 ML IV (06:45)
[2021-06-22 07:30] LABS: Bedside Glucose 103 mg/dL (70-110)
--- NOTE | 2021-06-22 07:30 | IMM_PTH ---
PATIENT: ANNEMARIE FULLER LOC: EN U#:[id number] AGE/SX: 66/F ROOM: RE06/22/[address]: Dr. Michael Diop DO : 1955 BED: DIS: 06/22/2021 SPEC #: [id number] RECD: 06/22/21 13:15 STATUS: HARMEET REDestini #: [id number] CORAL: 06/22/21 07:[address]: Michael Diop DEPT: IMMUNOHISTOCHEMISTRY RECD BY: Kalyani Ruiz ENTERED: 06/22/21 13:16 SP TYPE: IMMUNO OTHR DR: Dr. Sathish Copeland DO Tissues: A - Stomach, NOS Procedures: H Pylori (initial) PHYSICIAN & INSTITUTION [place] [address] SPECIMEN INFORMATION: Tissue Source: A ? Antrum ulcer biopsy Clinical Info: MARK, constipation, abdomen pain Specimen Number: [id number] CPT code: 51807 METHODOLOGY: Deparaffinized sections of prefer/formalin-fixed tissue or PAP/DQ stained slides are incubated with monoclonal/polyclonal antibodies/oligonucleotide probes. Localization is made via biotin free immunoperoxidase method. Appropriate controls are performed and reacted as expected. Results on target cell population are indicated in the following table: RESULTS: ANTIBODY / CLONE RESULT Block A H Pylori (polyclonal) negative These tests were developed and their performance characteristics determined by [facility]. They may not have been cleared or approved by the U.S. Food and Drug Administration. The FDA has determined that such clearance or approval is not necessary. INTERPRETATION: A. Antrum ulcer, biopsy: Negative for Helicobacter pylori organisms. AM:samreen 06/23/2021
--- NOTE | 2021-06-22 07:30 | EGD_PTH ---
PATIENT: ANNEMARIE FULLER LOC: EN U#:[id number] AGE/SX: 66/F ROOM: RE06/22/[address]: Dr. Michael Diop DO : 1955 BED: DIS: 06/22/2021 SPEC #: [id number] RECD: 06/22/21 09:51 STATUS: HARMEET RODRICK #: [id number] CORAL: 06/22/21 07:[address]: Michael Diop DEPT: SURGICAL PATHOLOGY RECD BY: Anastasia Vigil ENTERED: 06/22/21 11:33 SP TYPE: EGD BIOPSY OT DR: Dr. Sathish Copeland DO Tissues: A - Gastric mucous membrane B - Duodenum, NOS C - Esophagus, NOS Procedures: Special Stain Group II Surgery Specimen Level IV Alcian Blue/PAS (control) HEADER OPERATION: Colonoscopy, EGD ([facility]) PRE-OP DIAGNOSIS: MARK, constipation, abdomen pain TISSUE SUBMITTED: A ? Biopsy ulcer of antrum for H. pylori and path, B ? Duodenum biopsy, C ? Distal esophagus biopsy MICROSCOPIC DIAGNOSIS A. Gastric ulcer, biopsy: Chronic gastritis. Focal mucosal denudation. See comment. B. 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 C. Distal esophagus, biopsy: Gastroesophageal junctional mucosa with mild chronic inflammation. No evidence of goblet cell metaplasia. See comment. AM:samreen 06/23/2021 COMMENT A. The results of immunohistochemistry for Helicobacter pylori will be reported separately ([id number]). C. Alcian blue/PAS stain with matched control is used in the evaluation of the specimen. MICROSCOPIC DESCRIPTION Slides are reviewed. GROSS DESCRIPTION A - Received in fixative is one container labeled with the patient's name and designated ulcer antrum biopsy. The specimen consists of multiple irregular fragments of light thomas soft tissue that in aggregate measure 1 x 05 x 0.1 cm. The specimen is totally submitted in one cassette. B - Received in fixative is one container labeled with the patient's name and designated duodenal biopsy. The specimen consists of one irregular fragment of light thomas soft tissue that measures 0.6 x 0.2 x 0.1 cm. The specimen is totally submitted in one cassette. C - Received in fixative is one container labeled with the patient's name and designated distal esophagus biopsy. The specimen consists of multiple irregular fragments of light thomas soft tissue that in aggregate measure 0.6 x 0.6 x 0.1 cm. The specimen is totally submitted in one cassette. / AM:samreen 06/22/21 TC:3 CPT: 00138 x3, 72357
--- NOTE | 2021-06-22 08:08 | PCM.HP.BLA ---
History and Physical Date of Admission: 06/22/21 [facility] [address] [place] [address] OFFICE VISITDate of Service: 06/13/21 MR#:[id number]:[id number]: ANNEMARIE FULLER #:[id number]:1955 Provider:Michael Friend, DOAge/Sex: 66/F [facility]IStatus:Signed Intake Vital Signs 06/13/21 11:34 Height 5 ft 4 in Weight: 163 lb 4 oz BMI 28.0 Intake Visit Reasons: DIVERTICULITIS Chief Complaint: post gabi TR Allergies clarithromycin [From Biaxin] Allergy (Verified 06/13/21 11:32) Diarrhea prednisone Allergy (Verified 06/13/21 11:32) Nausea rizatriptan benzoate [From Maxalt] Allergy (Verified 06/13/21 11:32) Unknown Medications aspirin 81 mg PO DAILY@0800 12/23/20 [History Confirmed 06/13/21] metoprolol succinate 25 mg PO DAILY 12/23/20 [History Confirmed 06/13/21] cholecalciferol (vitamin D3) [Vitamin D3] 25 mcg PO DAILY 01/23/21 [History Confirmed 06/13/21] pantoprazole [Protonix] 40 mg PO DAILY #30 tab 01/23/21 [Rx Confirmed 06/13/21] alprazolam [Xanax] 0.25 mg PO TID PRN PRN 02/02/21 [History Confirmed 06/13/21] bisacodyl 5 mg tablet 5 mg PO ONCE #4 tab 06/13/21 [Rx Confirmed 06/13/21] polyethylene glycol 3350 17 gram/dose oral powder 17 g PO Q10M #510 g 06/13/21 [Rx Confirmed 06/13/21] Nurse's Note: Patient is reporting nausea, diarrhea watery or very loose, abd pain, bloating, heartburn these symptoms started approximately midAugust. Dr. Schaffer put her on an ATB which helped the symptom severity. History of appendicitis in December and cholecystectomy in January this year. Has not found any triggers. Denies anything that alleviates it. Diverticulosis diagnoses 10-12 years ago. [facility] Medical History (Updated 06/13/21 @ 15:[address] Rodriguez Friend, DO) Abdominal pain Alcohol abuse Anxiety Constipation Diverticulosis Dyslipidemia GERD (gastroesophageal reflux disease) HTN (hypertension) Insomnia Irritable bowel syndrome Migraines Mixed anxiety and depressive disorder Prediabetes Wears glasses Surgical History History of appendectomy (~12/2020) History of bilateral tubal ligation (~01/2021) History of cholecystectomy Social History Smoking Status: Never smoker HPI HPI Chief Complaint: post gabi TR Details: ANNEMARIE FULLER, is a 66 F who presents to the office today for evaluation of abdominal pain secondary to diverticulitis. This she has been very complicated for her. She has been having persistent abdominal pain. She had a CT scan abdomen pelvis that it showed acute diverticulitis. She underwent successful elective appendectomy. However because of persistent pain she underwent evaluation of her gallbladder and was discovered to have chronic cholecystitis. She underwent cholecystectomy. She has still been having bloating and abdominal pain. On her CT scan abdomen pelvis when she was diagnosed with appendicitis that it showed an enlarged liver. The liver span was 8-1/2 to 19 cm with steatosis present. When she underwent ultrasound of the right upper quadrant it again showed hepatomegaly with a similar size and echotexture consistent with steatohepatitis. She does not drink much alcohol. Maybe 1 glass of wine a week. She has never been obese. Her grandson had hepatoblastoma requiring 2 liver transplants, but there has been no other liver disease in the family. She suffers from mild anxiety and gastroesophageal reflux disease. No problems with hypercholesterolemia. She does not use Tylenol products. She has not started any new medicines. Her thyroid has been under control. She has no history of blood transfusion or chronic viral hepatitis. ROS Const Constitutional: Positive for fatigue Eyes Eyes: Positive for irritation and bulging eyes ENT ENT: Positive for ear or mastoid pain, hearing loss and tinnitus; No abnormal hearing Resp Respiratory: No cough or shortness of breath Cardio Cardiology: No chest pain at rest, chest pain with exertion, shortness of breath or dyspnea on exertion Gastro GI: Positive for abdominal pain, bloating, change in bowel habits, diarrhea, heartburn and nausea/dyspepsia Genitourinary-Female: Positive for urinary frequency, urinary urgency and genital itching Musc Musculoskeletal: Positive for back pain and muscle weakness Skin Skin: Positive for itchy eyes and rash Neuro Neurology: No abnormal hearing, abnormal movements, confusion, unsteady gait/balance or memory loss Psych Psychiatric: Positive for anxiety, No confusion and No memory loss Endo Endocrine: Positive for fatigue and increased urine leakage Aller/Imm Allergy/Immunologic: Positive for itchy eyes Austen/Lymp Hematologic/Lymphatic: No easy bleeding, easy bruising or enlarged lymph nodes Exam Const General: cooperative and comfortable Nutritional Appearance: average body habitus and well nourished [facility] Head: normal to inspection Ears: hearing grossly normal bilaterally Nose: external nose normal Face and sinus: normal facial exam Mouth: oral mucosae normal Throat: posterior oropharynx normal Eyes General: appearance normal, both eyes and all related structures Neck Neck: normal visual inspection Chest Chest palpation & inspection: normal inspection of the chest and normal palpation of entire chest wall Resp Effort & Inspection: normal respiratory effort Auscultation: Bilateral: Clear to Auscultation Cardio Palpation: normal PMI Rate: regular rate Rhythm: regular rhythm GI Inspection: normal to inspection Auscultation: normal bowel sounds Percussion: normal to percussion Palpation: no hepatosplenomegaly Skin General: no rashes or lesions noted Neuro General: patient alert Extrem General: normal to inspection Psych Affect: normal affect Quality Reporting Tobacco Screening ([facility] 138) Smoking Status: Never smoker Assessment and Plan Assessment and Plan (1) MCLEOD (nonalcoholic steatohepatitis): Status: Acute Orders: Orders: Elastography Parenchyma/Organ Today Ferritin Today Anti-Mitochondrial AB Today CLEMENTINA w/ Reflex Mult Confirm Today AFP, Tumor Marker Today Anti-Smooth Muscle ABS Today Copper, Serum or Plasma Today Ceruloplasmin Today Plan - Dr. Rodriguez Friend, DO: I suspect that her hepatomegaly is secondary to nonalcoholic fatty liver disease that resulted into Mcleod. As it is disease mostly in postmenopausal women. We will do the biochemical work-up to make sure she does not have any other chronic liver disease. She will also get elastography. I calculated her Mcleod score in the office and was F3. I am not sure why the calculation came up that way because she has a fairly normal albumin, with a normal platelet count and normal INR is in the past. (2) Abdominal pain: Status: Acute Plan - Dr. Rodriguez Friend, DO: We will evaluate the upper GI tract since this has not been evaluated previously. She does have abdominal pain in her midepigastric area that could be secondary to peptic ulcer disease. (3) Constipation: Status: Acute Plan - Dr. Rodriguez Friend, DO: We will evaluate her colon because of her history of recurrent diverticulitis. Plan Details Other Medications: New: polyethylene glycol 3350 (Miralax) 17 grams PO Q10M 510 grams 0RF bisacodyl take 4 pills 30 minutes prior to prep for colonoscopy 5 mg PO ONCE 4 tabs 0RF This is an updated H&P from when the patient was seen in the clinic. Nothing has changed since I saw her last.
--- NOTE | 2021-06-22 09:05 | OP.COLON_ITS ---
Patient Name: Carly Adan Procedure Date: 06/22/2021 8:25 AM Date of : 1955 Age: 66 Procedure: Colonoscopy Indications: Abdominal pain in the left lower quadrant Providers: Michael Diop DO Medicines: Monitored Anesthesia Care Patient Profile: This is a 66 year old female. Refer to note in patient chart for documentation of history and physical. Last Colonoscopy: more than 10 years ago. Complications: No immediate complications. Procedure: Pre-Anesthesia Assessment: - Prior to the procedure, a History and Physical was performed, and patient medications and allergies were reviewed. The patient is competent. The risks and benefits of the procedure and the sedation options and risks were discussed with the patient. All questions were answered and informed consent was obtained. Patient identification and proposed procedure were verified by the physician in the pre-procedure area. Mental Status Examination: alert and oriented. Airway Examination: normal oropharyngeal airway and neck mobility. Respiratory Examination: clear to auscultation. CV Examination: normal. Prophylactic Antibiotics: The patient does not require prophylactic antibiotics. Prior Anticoagulants: The patient has taken no previous anticoagulant or antiplatelet agents. ASA Grade Assessment: II - A patient with mild systemic disease. After reviewing the risks and benefits, the patient was deemed in satisfactory condition to undergo the procedure. The anesthesia plan was to use moderate sedation / analgesia (conscious sedation). Immediately prior to administration of medications, the patient was re-assessed for adequacy to receive sedatives. The heart rate, respiratory rate, oxygen saturations, blood pressure, adequacy of pulmonary ventilation, and response to care were monitored throughout the procedure. The physical status of the patient was re-assessed after the procedure. After I obtained informed consent, the scope was passed under direct vision. Throughout the procedure, the patient's blood pressure, pulse, and oxygen saturations were monitored continuously. The colonoscope was introduced through the anus and advanced to the cecum, identified by appendiceal orifice and ileocecal valve. The colonoscopy was performed without difficulty. The patient tolerated the procedure well. The quality of the bowel preparation was good. Moderate Sedation: Moderate (conscious) sedation was administered by the endoscopy nurse and supervised by the endoscopist. The patient's oxygen saturation, heart rate, blood pressure and response to care were monitored. Scope In: 8:29:21 AM Scope Withdrawal Time 0 hours 8 minutes 45 seconds Scope Out: 8:45:54 AM Total Procedure Duration Time 0 hours 16 minutes 33 seconds Findings: The perianal and digital rectal examinations were normal. The left colon was moderately tortuous. Multiple small and large-mouthed diverticula were found in the sigmoid colon. Purulent discharge was seen in association with the diverticular opening, suspicious of diverticulitis. The exam was otherwise without abnormality on direct and retroflexion views. Impression: - Tortuous colon. - Moderate diverticulosis in the sigmoid colon. Purulent discharge was seen in association with the diverticular opening, suspicious of diverticulitis. - The examination was otherwise normal on direct and retroflexion views. - No specimens collected. - The examination was suspicious for diverticulitis. - Severe diverticulosis in the sigmoid colon. There was evidence of past bleeding from the diverticular opening. Recommendation: - Discharge patient to home. - High fiber diet. - Augmentin (amoxicillin/clavulanate) 875 mg PO BID for 10 days. - Repeat colonoscopy in 5 years for surveillance. - Return to GI office in 2 weeks. - Continue present medications. Procedure Code(s): --- Professional --- 10669, Colonoscopy, flexible; diagnostic, including collection of specimen(s) by brushing or washing, when performed (separate procedure) CPT copyright 2017 [employer] [place] [employer]. All rights reserved. The codes documented in this report are preliminary and upon egg grader review may be revised to meet current compliance requirements. Michael Diop DO 06/22/2021 9:05:28 AM This report has been signed electronically. Number of Addenda: 1 Note Initiated On: 06/22/2021 8:25 AM Addendum Number: 1 Addendum Date: 05/24/2022 4:13:11 PM MAC was used instead of moderate sedation for this patient. Michael Diop DO 05/24/2022 4:13:20 PM This report has been signed electronically.
--- NOTE | 2021-06-22 09:06 | OP.CCLET_ITS ---
05/24/2022 Sathish Copeland [address] [facility] [address] Re : Colonoscopy procedure for Carly Adan Dear Dr. Copeland This procedure was performed on May. My impressions and recommendations are as follows: Impressions : - Tortuous colon. - Moderate diverticulosis in the sigmoid colon. Purulent discharge was seen in association with the diverticular opening, suspicious of diverticulitis. - The examination was otherwise normal on direct and retroflexion views. - No specimens collected. - The examination was suspicious for diverticulitis. - Severe diverticulosis in the sigmoid colon. There was evidence of past bleeding from the diverticular opening. Recommendations : - Discharge patient to home. - High fiber diet. - Augmentin (amoxicillin/clavulanate) 875 mg PO BID for 10 days. - Repeat colonoscopy in 5 years for surveillance. - Return to GI office in 2 weeks. - Continue present medications. My findings are described in the full procedure note, which is enclosed. If I can be of further assistance, please feel free to contact me at . Sincerely, Michael Diop, 06/22/2021 9:05:28 AM This report has been signed electronically.
--- NOTE | 2021-06-22 09:27 | OP.EGD_ITS ---
Patient Name: Carly Adan Procedure Date: 06/22/2021 8:06 AM Date of : 1955 Age: 66 Procedure: Upper GI endoscopy Indications: Epigastric abdominal pain Providers: Michael Diop DO Medicines: Monitored Anesthesia Care Patient Profile: This is a 66 year old female. Refer to note in patient chart for documentation of history and physical. Patient has symptoms. The symptoms first began January. Complications: No immediate complications. Procedure: Pre-Anesthesia Assessment: - Prior to the procedure, a History and Physical was performed, and patient medications and allergies were reviewed. The patient is competent. The risks and benefits of the procedure and the sedation options and risks were discussed with the patient. All questions were answered and informed consent was obtained. Patient identification and proposed procedure were verified by the physician in the pre-procedure area. Mental Status Examination: alert and oriented. Respiratory Examination: clear to auscultation. CV Examination: normal. Prophylactic Antibiotics: The patient does not require prophylactic antibiotics. Prior Anticoagulants: The patient has taken aspirin, last dose was day of procedure. ASA Grade Assessment: II - A patient with mild systemic disease. After reviewing the risks and benefits, the patient was deemed in satisfactory condition to undergo the procedure. The anesthesia plan was to use moderate sedation / analgesia (conscious sedation). Immediately prior to administration of medications, the patient was re-assessed for adequacy to receive sedatives. The heart rate, respiratory rate, oxygen saturations, blood pressure, adequacy of pulmonary ventilation, and response to care were monitored throughout the procedure. The physical status of the patient was re-assessed after the procedure. After obtaining informed consent, the endoscope was passed under direct vision. Throughout the procedure, the patient's blood pressure, pulse, and oxygen saturations were monitored continuously. The Endoscope was introduced through the mouth, and advanced to the second part of duodenum. The upper GI endoscopy was accomplished without difficulty. The patient tolerated the procedure well. Moderate Sedation: Moderate (conscious) sedation was administered by the endoscopy nurse and supervised by the endoscopist. The patient's oxygen saturation, heart rate, blood pressure and response to care were monitored. Moderate (conscious) sedation was administered by the endoscopy nurse and supervised by the endoscopist. The patient's oxygen saturation, heart rate, blood pressure and response to care were monitored. Scope In: 8:17:29 AM Scope Out: 8:25:29 AM Total Procedure Duration Time 0 hours 8 minutes 0 seconds Findings: LA Grade A (one or more mucosal breaks less than 5 mm, not extending between tops of 2 mucosal folds) esophagitis with no bleeding was found. Biopsies were taken with a cold forceps for histology. Verification of patient identification for the specimen was done. Estimated blood loss was minimal. A small hiatal hernia was present. Patchy moderately erythematous mucosa without bleeding was found in the gastric body. Segmental moderate inflammation characterized by erosions was found in the stomach. Four non-obstructing non-bleeding cratered gastric ulcers of mild to moderate severity with no stigmata of bleeding were found in the gastric antrum. The largest lesion was 5 mm in largest dimension. There is no evidence of perforation. Biopsies were taken with a cold forceps for histology. Verification of patient identification for the specimen was done. Estimated blood loss was minimal. Patchy moderate inflammation characterized by erosions, erythema, friability and granularity was found in the duodenal bulb. Biopsies were taken with a cold forceps for histology. Verification of patient identification for the specimen was done. Estimated blood loss was minimal. Impression: - LA Grade A reflux esophagitis. Biopsied. - Small hiatal hernia. - Erythematous mucosa in the gastric body. - Gastritis. - Non-obstructing non-bleeding gastric ulcers with no stigmata of bleeding. NSAID induced etiology. There is no evidence of perforation. Biopsied. - Duodenitis. Biopsied. Recommendation: - Written discharge instructions were provided to the patient. - Return to normal activities tomorrow. - Resume previous diet. - No aspirin, ibuprofen, naproxen, or other non-steroidal anti-inflammatory drugs for 8 weeks. - Await pathology results. - Repeat upper endoscopy in 1 year for surveillance based on pathology results. - Return to GI clinic in 2 weeks. Procedure Code(s): --- Professional --- 37848, Esophagogastroduodenoscopy, flexible, transoral; with biopsy, single or multiple CPT copyright 2017 [employer]. All rights reserved. The codes documented in this report are preliminary and upon grill chef review may be revised to meet current compliance requirements. Michael Diop DO 06/22/2021 9:26:42 AM This report has been signed electronically. Number of Addenda: 1 Note Initiated On: 06/22/2021 8:06 AM Addendum Number: 1 Addendum Date: 05/24/2022 4:12:55 PM MAC was used instead of moderate sedation for this patient. Michael Diop DO 05/24/2022 4:13:00 PM This report has been signed electronically.
--- NOTE | 2021-06-22 09:28 | OP.CCLET_ITS ---
05/24/2022 Sathish Copeland [address] [facility] [place] [address] Re : Upper GI endoscopy procedure for Carly Adan Dear Dr. Copeland This procedure was performed on May. My impressions and recommendations are as follows: Impressions : - LA Grade A reflux esophagitis. Biopsied. - Small hiatal hernia. - Erythematous mucosa in the gastric body. - Gastritis. - Non-obstructing non-bleeding gastric ulcers with no stigmata of bleeding. NSAID induced etiology. There is no evidence of perforation. Biopsied. - Duodenitis. Biopsied. Recommendations : - Written discharge instructions were provided to the patient. - Return to normal activities tomorrow. - Resume previous diet. - No aspirin, ibuprofen, naproxen, or other non-steroidal anti-inflammatory drugs for 8 weeks. - Await pathology results. - Repeat upper endoscopy in 1 year for surveillance based on pathology results. - Return to GI clinic in 2 weeks. My findings are described in the full procedure note, which is enclosed. If I can be of further assistance, please feel free to contact me at . Sincerely, Michael Diop, 06/22/2021 9:26:42 AM This report has been signed electronically.
== END 2021-06-22 10:02 ==
LOC: EN 06:21 → AC 06:21
PROVIDERS: PCP Family Medicine; Referring Provider Family Medicine; Visit Provider Internal Medicine Gastroenterology
PROC: 0DJD8ZZ Inspection of Lower Intestinal Tract, Via Natural or Artificial Opening Endoscopic (ICD-10-PCS; CPT 45378; principal; 2021-06-22 07:25)
DX: K29.50 Unspecified chronic gastritis without bleeding (principal); K21.00 Gastro-esophageal reflux disease with esophagitis, without bleeding; K29.80 Duodenitis without bleeding; K44.9 Diaphragmatic hernia without obstruction or gangrene; K57.30 Diverticulosis of large intestine without perforation or abscess without bleeding; K25.9 Gastric ulcer, unspecified as acute or chronic, without hemorrhage or perforation; T39.395A Adverse effect of other nonsteroidal anti-inflammatory drugs [NSAID], initial encounter; Y92.9 Unspecified place or not applicable; K75.81 Nonalcoholic steatohepatitis (NASH); I10 Essential (primary) hypertension; E78.5 Hyperlipidemia, unspecified; F41.8 Other specified anxiety disorders; K58.9 Irritable bowel syndrome, unspecified; G43.909 Migraine, unspecified, not intractable, without status migrainosus; Z87.19 Personal history of other diseases of the digestive system; Z90.49 Acquired absence of other specified parts of digestive tract; Z79.82 Long term (current) use of aspirin; Z79.899 Other long term (current) drug therapy
CPT/HCPCS: 43239; 45378; 82962; 88305; 88313; 88342; J7120; J2405

== ENCOUNTER → 2021-08-03 09:23 | Outpatient (CLI) | payer OTHER, SELFPAY ==
--- NOTE | 2021-08-03 09:25 | RAD_ITS ---
STUDY: X-RAY - LUMBAR SPINE REASON FOR EXAM: Female, 66 years old. back pain TECHNIQUE: 4 view(s) of the lumbar spine were obtained. COMPARISON: None FINDINGS: Normal lumbar lordosis. There is no substantial scoliosis. 10 mm of anterolisthesis of L4 on L5. Normal vertebral bodies and endplates. Normal disc space heights. Facet hypertrophy in the lower lumbar spine consistent with degenerative disc disease. The soft tissue structures are unremarkable. RAD/L/S Spine Min 4 Views IMPRESSION: Degenerative disc disease lower lumbar spine with 10 mm of anterolisthesis of L4 and L5 to Electronically Signed: Sean Delgadillo MD at 10:53 EST Tel , Service support ,
--- NOTE | 2021-08-03 09:25 | RAD_ITS ---
STUDY: X-RAY - THORACIC SPINE REASON FOR EXAM: Female, 66 years old. back pain TECHNIQUE: 3 view(s) of the thoracic spine were obtained. COMPARISON: None. FINDINGS: Normal kyphosis of the thoracic spine. Mild dextroscoliosis. There is demineralization of the thoracic spine with endplate spondylosis. There is multilevel disc space narrowing of the thoracic spine. The soft tissue structures are unremarkable. RAD/Thoracic Spine 3 Views IMPRESSION: Mild dextroscoliosis with mild diffuse degenerative disc disease. Electronically Signed: Sean Delgadillo MD at 10:52 EST Tel , Service support ,
== END ==
PROVIDERS: PCP Family Medicine; Referring Provider Internal Medicine Gastroenterology; Visit Provider Internal Medicine Gastroenterology
DX: M54.9 Dorsalgia, unspecified (principal)
CPT/HCPCS: 72072; 72110

== ENCOUNTER → 2021-08-04 07:08 | Outpatient (CLI) | payer OTHER, SELFPAY ==
[2021-08-04 10:29] LABS: Cholesterol 166 mg/dL (200); High Density Lipoprotein 46 mg/dL; Triglycerides 162 mg/dL
[2021-08-05 11:09] LABS: LDL, Direct 120295 99 mg/dL (0-99)
== END ==
PROVIDERS: PCP Family Medicine; Referring Provider Internal Medicine Gastroenterology; Visit Provider Internal Medicine Gastroenterology
DX: K75.81 Nonalcoholic steatohepatitis (NASH) (principal); R10.9 Unspecified abdominal pain; M54.9 Dorsalgia, unspecified
CPT/HCPCS: 36415; 82465; 83718; 83721; 84478

== ENCOUNTER → 2021-08-22 07:41 | Outpatient (CLI) | payer OTHER, SELFPAY ==
--- NOTE | 2021-08-22 07:44 | US_ITS ---
STUDY: ABDOMINAL ULTRASOUND - ELASTOGRAPHY REASON FOR VISIT: Female, 66 years old. MARK TECHNIQUE: Liver stiffness measurements were obtained on a Timely RS 85 ultrasound machine using a CA 1-7 probe following the SRU guidelines. 3 measurements were obtained using a 2-D-SWE method. The IQR/M was16% suggesting a quality data set. TECHNICAL QUALITY: Adequate. COMPARISON: None. FINDINGS: Liver: Fatty infiltration of the liver. Median liver stiffness measured 5 kPa. US/Elastography Parenchyma/Organ IMPRESSION: Liver stiffness measures 5 kPa compatible with F1 Metavir score. Electronically Signed: Slick Avina MD at 12:43 EST , Service support ,
--- NOTE | 2021-08-22 07:45 | US_ITS ---
STUDY: ABDOMINAL ULTRASOUND - RIGHT UPPER QUADRANT REASON FOR VISIT: Female, 66 years old MARK TECHNIQUE: Ultrasound evaluation of the right upper quadrant was performed with real-time and static bowman-scale imaging. TECHNICAL QUALITY: Adequate. COMPARISON: Comparison is made with prior study of 01/23/2021. FINDINGS: Liver: The liver measures 14.4 cm. There is increased echogenicity consistent with fatty infiltration. The bile ducts are within normal limits. There is hepatic color flow. The direction of portal flow is hepatopetal. There is no demonstrated mass lesion. Gallbladder: The patient is status post cholecystectomy. Common Bile Duct (C.B.D.): The common bile duct measures 5.2 mm. Pancreas: Normal size of the head, body and tail of the pancreas. There is normal echogenicity of the pancreas. There is no demonstrated pancreatic mass or cyst. Right Kidney: Normal size of the right kidney. The right kidney measures 10.7 cm x 4.6 x 4.7 cm. Normal renal cortex. The right cortex measures 1.2 cm. There is no demonstrated renal mass or cyst. There is no right hydronephrosis. US/Abdomen Limited IMPRESSION: Fatty infiltration of the liver. Electronically Signed: Slick Avina MD at 13:48 EST , Service support ,
== END ==
PROVIDERS: PCP Family Medicine; Referring Provider Internal Medicine Gastroenterology; Visit Provider Internal Medicine Gastroenterology
DX: K75.81 Nonalcoholic steatohepatitis (NASH) (principal)
CPT/HCPCS: 76705; 76981

== ENCOUNTER 2021-11-14 16:05 | Emergency (ER) | payer OTHER, SELFPAY ==
[2021-11-14 16:06] VITALS: BP 173/93; PULSE 100; RESP 18; TEMP 36.9; O2SAT 94; BMI 26.6
--- NOTE | 2021-11-14 17:40 | RAD_ITS ---
STUDY: X-RAY CHEST REASON FOR EXAM: Female, 66 years old. Cough. Bilateral RALES. Dyspnea. TECHNIQUE: Single AP portable view of the chest. COMPARISON: 10/27/2014. FINDINGS: The lungs are well-expanded. There is linear scarring versus atelectasis at both lung bases. There is no new mass or infiltrate. There is no demonstrated pleural abnormality. Normal size heart. Normal mediastinum and adam. Normal visualized pulmonary arteries. Normal visualized aortic arch and descending thoracic aorta. Normal visualized thoracic spine. Normal visualized ribs, clavicles, and shoulders. There is no demonstrated abnormality of the visualized soft tissue structures of the upper abdomen. RAD/Chest 1 View (Portable) IMPRESSION: Bibasilar atelectasis without acute cardiopulmonary disease or other interval change. Electronically Signed: Korey Ruff DO at 18:12 EST ,
--- NOTE | 2021-11-14 17:42 | EDS_ITS ---
HPI HPI - URI History of Present Illness Chief Complaint: Shortness of Breath Detail of Chief Complaint: Illness with respiratory and GI symptoms Informant: patient Onset/Context/Timing Onset: Days (Onset Saturday) Context: Sudden Onset Timing: Continuous Quality: Throat pain and shortness of breath and myalgias Current Severity: Mild Maximum Severity: Moderate Worsened by: Swallowing, Eating Solids and Drinking Liquids Associated Symptoms Associated Symptoms: Positive for Nasal Congestion, Headache, Myalgias, Nausea, Diarrhea, Shortness of Breath and Nonproductive cough; Negative for Sinus Pressure, Vomiting, Chest Pain, Hemoptysis and Productive Cough Narrative Narrative: Patient is a 66-year-old woman with history of diverticulitis, mild anxiety disorder with depression, MARK who presents with viral-like symptoms that started Saturday. She states she initially had mild sore throat and cough. She now has myalgias arthralgias chills and headache. She does report rhinorrhea, congestion and sore throat. She does have a cough. She states she gets short of breath when she is supine. There is no history of coronary disease. She denies pedal edema. She does have nausea without vomiting. She had several episodes of diarrhea. She has had no exposure to anyone with Covid. and one grandchild were ill that she had contact with this weekend. Neither were tested. She has not noted a rash. She denies double vision, blurred vision or loss of vision. Denies photophobia. Denies neck pain or neck stiffness. She denies ear pain, drainage, or tenderness. Prior similar symptoms: No Recent Illness/Hospitalization: No ROS ROS ED Constitutional Constitutional ED: Reports chills and fever(s); Denies sweats or weight loss Eyes Eyes: Denies blurry vision, change in vision or diplopia ENT ENT ED: Reports rhinorrhea and sore throat; Denies ear pain Cardiovascular Cardiovascular: Denies chest pain, orthopnea, palpitations, paroxysmal nocturnal dyspnea or racing heartbeat Respiratory/Chest Respiratory/Chest: Reports cough and dyspnea; Denies dyspnea on exertion, orthopnea, paroxysmal nocturnal dyspnea or sputum Gastrointestinal Gastrointestinal: Reports diarrhea and nausea; Denies abdominal pain, constipation, melena or vomiting Genitourinary Genitourinary ED: Denies dysuria, hematuria or urinary frequency Musculoskeletal Musculoskeletal: Reports arthralgias and myalgias; Denies back pain or neck pain Integumentary Denies rash Neurologic Neurologic: Reports headache(s) and weakness; Denies paresthesias Psychiatric Psychiatric: Reports depression; Denies suicidal thoughts Endocrine Endocrinology: Denies polydipsia, polyphagia or polyuria Hematologic/Lymphatic Hematologic/Lymphatic: Denies easy bleeding or easy bruising [facility] Medical History Abdominal pain Anxiety Back pain Constipation Diverticulitis Diverticulosis Dyslipidemia Gastric cardia ulcer GERD (gastroesophageal reflux disease) History of echocardiogram History of stress test HTN (hypertension) Insomnia Irritable bowel syndrome Migraines Mixed anxiety and depressive disorder Prediabetes Wears glasses Home Medications metoprolol succinate 25 mg PO DAILY 12/23/20 [History Last Taken 06/21/21 20:00] alprazolam [Xanax] 0.25 mg PO TID PRN PRN 02/02/21 [History Last Taken 06/21/21 20:00] polyethylene glycol 3350 17 gram/dose oral powder 17 g PO Q10M #510 g 06/13/21 [Rx Last Taken 06/21/21 20:00] Lactobacillus acidophilus [Probiotic] 10,000 mmu cells PO DAILY 06/19/21 [History Last Taken 06/21/21 20:00] simvastatin 20 mg PO QHS 06/19/21 [History Last Taken 06/21/21 20:00] Allergy/AdvReac Type Severity Reaction Status Date / Time clarithromycin [From Biaxin] Allergy Diarrhea Verified 11/14/21 16:07 prednisone Allergy Nausea Verified 11/14/21 16:07 rizatriptan benzoate Allergy Unknown Verified 11/14/21 16:07 [From Maxalt] metronidazole [From Flagyl] AdvReac Nausea Verified 11/14/21 16:07 Surgical History History of appendectomy (~12/2020) History of bilateral tubal ligation (~01/2021) History of cholecystectomy Social History (Updated 11/14/21 @ 17:[address] Boubacar Messer MD) household members: spouse Smoking Status: Never smoker substance use type: does not use EXAM Physical Exam Const Vital Signs: 11/14/21 16:06 11/14/21 17:26 11/14/21 18:00 Temperature 98.4 F Temperature Source Temporal Pulse Rate 100 88 Respiratory Rate 18 16 Respiratory Effort Normal Respiratory Depth Normal Respiratory Pattern Normal Blood Pressure 173/93 H 164/86 H Blood Pressure Mean 119 112 Pulse Ox 94 93 Oxygen Delivery Method Room Air Room Air Room Air Positive well nourished and well developed General Appearance ED: well developed and other Patient appears ill but not toxic. ; Negative for cyanotic, diaphoretic or pallor HEENT Reports TM's clear and dry mucous membranes normocephalic Face and Sinus: Negative for sinus tenderness or facial tenderness External Ear: external ears normal External Auditory Canal: EAC's normal Tympanic Membrane ED: Yes TM's clear Mouth ED: Yes dry mucous membranes Mouth: dry mucous membranes Teeth and Gingiva: Negative for caries Throat: posterior oropharynx normal; Negative for tonsils abnormal Eyes PERRL and EOMs intact bilaterally General Eye ED: Negative for pale conjunctiva or scleral icterus Neck no lymphadenopathy, supple, no meningeal signs and no JVD General: Negative for anterior neck swelling Resp normal respiratory effort Effort and Inspection: Negative for retractions Auscultation: rales bilateral base (Right) and lower (On the left side); Negative for diminished lung sounds Cardio S1 normal heart sound, S2 normal heart sound and no murmurs Rate: regular rate Rhythm: regular rhythm GI non-tender, non-distended and no masses Auscultation: normoactive bowel sounds Palpation: soft Back/Spine no CVA tenderness and normal ROM Cervical Spine: Negative for cervical spine tenderness Lumbar Spine / Lower Back: Negative for lumbar spinal tenderness Extremity normal to inspection and full ROM General Extremety ED: Negative for cyanosis or tenderness General Extremity: Negative for cyanosis Neuro oriented x3 and CN's II-XII intact bilaterally Sensorium / Orientation: alert Psych mental status grossly normal Skin General Skin Exam: Negative for jaundice or pallor Lesions: no lesions Rashes: no rashes MDM MDM MDM Narrative Medical decision making narrative: Clinically patient is dehydrated. Concern for COVID she received a 500 cc bolus of normal saline. Chest x-ray was obtained to rule out pneumonia. Since she has bilateral rales concern patient has COVID. Proper blood work was obtained to assess white count, rule out anemia, assess renal function electrolytes. Clinically patient has COVID pneumonia. Lab Data Attestation: I reviewed the patient's lab results. Lab results narrative: Covid test is positive. CBC is unremarkable. Basic metabolic panel is unremarkable. Labs: Laboratory Results - last 24 hr 11/14/21 11/14/21 18:02 18:02 WBC 8.5 RBC 5.00 Hgb 15.5 H Hct 45.0 MCV 90.0 MCH 31.0 MCHC 34.4 RDW Std Deviation 43.6 RDW Coeff of James 13.2 Plt Count 169 MPV 9.5 Immature Gran % (Auto) 0.200 Neut % (Auto) 69.7 Lymph % (Auto) 19.0 [place] % (Auto) 10.9 H Eos % (Auto) 0.0 Baso % (Auto) 0.2 Absolute Neuts (auto) 5.9 Absolute Lymphs (auto) 1.62 Nucleated RBC % 0 Sodium 133 L Potassium 4.1 Chloride 100 Carbon Dioxide 27.0 Anion Gap 6 BUN 12 Creatinine 0.84 Estim Creat Clear Calc 60.08 Est GFR (MDRD) Af Amer 87 Est GFR (MDRD) Non-Af 72 BUN/Creatinine Ratio 14.3 Glucose 119 H Calcium 8.9 Rapid Covid test was positive. Radiography Diagnostic Testing: Clinical Impression(s) from Imaging Studies Chest X-Ray 11/14/21 17:40 IMPRESSION: Bibasilar atelectasis without acute cardiopulmonary disease or other interval change. Electronically Signed: Korey Ruff DO at 18:12 EST Reading Location ID and State: [address] [place] [address] Tel [phone], Service support , Single view chest x-ray reveals poor inspiratory volume. Exam is limited for this reason. There may be slight bilateral atelectasis at the bases. There is no obvious infiltrate. Osseous structures unremarkable. Discharge Plan Triage Chief Complaint: Shortness of Breath ED Provider: Boubacar Messer Dx/Rx/DC Orders Clinical Impression: Pneumonia due to 2019-nCoV Instructions: Coronavirus Disease 2019 (COVID-19): Caring for Yourself or Others Prescriptions: No Action polyethylene glycol 3350 [Miralax] 17 gram/dose powder 17 g PO Q10M Qty: 510 RF: 0 metoprolol succinate 25 MG tablet extended release 24 hr 25 mg PO DAILY RF: 0 alprazolam [Xanax] 0.25 MG tablet 0.25 mg PO TID PRN PRN (Reason: Anxiety) RF: 0 simvastatin 20 mg tablet 20 mg PO QHS RF: 0 Probiotic 10 billion cell Capsule 10,000 mmu cells PO DAILY RF: 0 Primary Care Provider: Sathish Copeland Referrals: Sathish Copeland DO [Primary Care Provider] - 10-14 Days if not better Disposition Disposition: Home, Self Care
[2021-11-14 18:00] VITALS: BP 164/86; PULSE 88; RESP 16; O2SAT 93
[2021-11-14 18:15] LABS: Absolute Lymphocyte Count 1.62 X10^3/uL (0.83-4.51); Absolute Neutrophil Count 5.9 X10^3/uL (2.0-7.7); Basophil# 0.02 X10^3/uL; Basophil% 0.2 % (0-1); Hemoglobin 15.5 g/dL (12.0-15.0); Lymphocyte # 1.62 X10^3/ul (0.83-4.51); Mean Corp Hgb Conc 34.4 g/dL (32-36); Mean Platelet Vol. 9.5 fl (6.2-12.0); Monocyte# 0.93 X10^3/uL; Monocyte% 10.9 % (0-10); NRBC Flagged by Analyzer 0 % (0-5); Neutrophil # 5.92 X10^3/uL (2.7-7.7); Neutrophil % 69.7 % (47-70); Platelet Count 169 K/mm3 (150-450); RBC Distribution Width CV 13.2 % (11.6-14.6); RBC Distribution Width SD 43.6 fl (35.1-43.9); White Blood Count 8.5 K/mm3 (4.4-11.0)
[2021-11-14 18:28] LABS: Anion Gap 6 (5-15); BUN 12 mg/dL (7-18); BUN/Creat Ratio 14.3 RATIO (10-20); Calcium,Total 8.9 mg/dL (8.5-10.1); Chloride 100 mmol/L (98-107); Creatinine, Serum 0.84 mg/dL (0.55-1.02); EST Glomerular Filtration Rate 72 mL/min (>60); Est Glom Filt Rate - Afr Amer 87 mL/min (>60); Estimated Creatinine Clearance 60.08 ml/min; Glucose 119 mg/dL (74-106); Potassium 4.1 mmol/L (3.5-5.1); Sodium Level 133 mmol/L (136-145)
[2021-11-14 19:03] VITALS: BP 160/84; PULSE 87; RESP 15; O2SAT 93
--- NOTE | 2021-11-15 14:55 | CASEMGMT ---
NATHALIE AUGUST ED follow-up: Date of ER visit: 11/14/2021 Presenting ER complaint: shortness of breath Tested COVID positive in [facility] [employer] CM placed call to patient's telephone number listed on demographics and patient answered. NATHALIE AUGUST introduced self and role at [facility]. Patient states feeling about the same but not feeling as achy today. Patient reports sore throat but attempting to push fluids though appetite is decreased. Denies fever. Patient instructed on quarantine and symptomatic treatment. Patient encouraged to obtain pulse oximeter for home use and instructed on red flag signs and symptoms to monitor for. Voiced understanding. Patient encouraged to schedule follow-up appointment with PCP and states will do so. Patient denies further questions or concerns. NATHALIE Aguayo CM
== END 2021-11-14 19:04 | disposition home or self-care (01) ==
PROVIDERS: Emergency Provider Emergency Medicine; PCP Family Medicine; Visit Provider Emergency Medicine
DX: U07.1 COVID-19 (principal); I10 Essential (primary) hypertension; J12.82 Pneumonia due to coronavirus disease 2019; E78.5 Hyperlipidemia, unspecified; E86.0 Dehydration; F41.9 Anxiety disorder, unspecified; F32.A Depression, unspecified; K75.81 Nonalcoholic steatohepatitis (NASH); Z87.19 Personal history of other diseases of the digestive system; K21.9 Gastro-esophageal reflux disease without esophagitis; K58.9 Irritable bowel syndrome, unspecified; Z79.899 Other long term (current) drug therapy
CPT/HCPCS: 71045; 80048; 85025; 87426; 99283; J7040

== ENCOUNTER → 2022-03-15 | Outpatient (CLI) | payer OTHER, SELFPAY ==
--- NOTE | 2022-03-15 07:08 | BI_ITS ---
MAMMOGRAPHY - BILATERAL SCREENING REASON FOR EXAM: Female, 66 years old. Routine annual screening examination. PERTINENT HISTORY: Non-contributory. TECHNIQUE: Digital bilateral breast shawna (3D mammographic acquisition) in the CC and MLO projections. 2-D mediolateral oblique (MLO) and craniocaudad (CC) views of both breasts were obtained. CAD: Full Field Digital Mammography with Computer Added Detection was performed. COMPARISON: Comparison mammogram from 03/14/2021, 10/06/2019, 09/20/2018, 07/19/2017. FINDINGS: Breast Composition: There are scattered areas of fibroglandular density. There are no dominant masses or suspicious calcifications. Stable benign-appearing bilateral axillary lymph nodes. No other significant abnormalities are identified. There has been no significant change since the prior study. BI/SCRN MAMM (CAD)W/SHAWNA BILAT IMPRESSION: Stable bilateral screening mammogram. Yearly follow-up mammogram recommended. (A) ASSESSMENT CATEGORY: BIRADS Category 2: Benign. A letter regarding these results will be sent to the patient by the facility within 30 days. Approximately 10% of breast cancers are not detected by mammography. A normal mammogram should not delay biopsy of a clinically suspicious abnormality. [id number] Electronically Signed: Edi No, at 13:38 EDT ,
== END | disposition home or self-care (01) ==
LOC: OPBI 07:06
PROVIDERS: PCP Family Medicine; Visit Provider Obstetrics & Gynecology
DX: Z12.31 Encounter for screening mammogram for malignant neoplasm of breast (principal)
CPT/HCPCS: 77063; 77067

== ENCOUNTER → 2022-07-05 | Outpatient (CLI) | payer OTHER, SELFPAY | END | disposition home or self-care (01) | LOC: LABSPEC 15:45 | PROVIDERS: PCP Family Medicine; Visit Provider Obstetrics & Gynecology | DX: R30.0 Dysuria (principal) | CPT/HCPCS: 87086; 87088 ==

== ENCOUNTER → 2022-07-30 | Outpatient (CLI) | payer OTHER, SELFPAY ==
[2022-08-05 10:22] LABS: HPV APTIMA, High Risk Negative (Negative)
== END | disposition home or self-care (01) ==
LOC: LABSPEC 12:18
PROVIDERS: PCP Family Medicine; Visit Provider Student in an Organized Health Care Education/Training Program
DX: Z12.4 Encounter for screening for malignant neoplasm of cervix (principal)
CPT/HCPCS: 87624; 88175; G0145

== ENCOUNTER 2023-08-21 05:30 | Day surgery (SDC) | payer MEDICARE, OTHER, SELFPAY ==
[2023-08-21] VITALS (7 sets, daily range): BP systolic 110–154; BP diastolic 68–81; PULSE 64–73; RESP 16–24; TEMP 36.4–37.3; O2SAT 92–97; BMI 28.6
--- NOTE | 2023-08-21 | EGD_PTH ---
PATIENT: ANNEMARIE FULLER LOC: EN U#:[id number] AGE/SX: 68/F ROOM: RE08/21/[address]: Dr. Michael Diop DO : 1955 BED: DIS: 08/21/2023 SPEC #: [id number] RECD: 08/21/23 09:18 STATUS: HARMEET RODRICK #: [id number] CORAL: 08/21/23 00:[address]: Michael Diop DEPT: SURGICAL PATHOLOGY RECD BY: Shane Alicia ENTERED: 08/21/23 11:02 SP TYPE: EGD BIOPSY OT DR: Dr. Sathish Copeland DO Tissues: A - Duodenum, NOS B - Gastric mucous membrane C - Esophagus, NOS Procedures: Special Stain Group II Surgery Specimen Level IV Alcian Blue/PAS (control) HEADER OPERATION: EGD with biopsies PRE-OP DIAGNOSIS: GERD, MARK, diverticulitis, gastric cardia ulcer TISSUE SUBMITTED: A - Duodenal biopsy, B - Gastric body biopsy, C - Distal esophagus biopsy MICROSCOPIC DIAGNOSIS A. Duodenum, biopsy: Gastric metaplasia and mild nonspecific chronic inflammation. B. Gastric body, biopsy: Mild chronic gastritis. See comment. C. Distal esophagus, biopsy: Gastroesophageal junctional mucosa with mild chronic inflammation. Focal changes of reflux. No evidence of goblet cell metaplasia. See comment. AM:samreen 08/22/2023 COMMENT B. The results of immunohistochemistry for Helicobacter pylori will be reported separately ([id number]). C. Alcian blue/PAS stain with matched control supports the above diagnosis. MICROSCOPIC DESCRIPTION Slides are reviewed. GROSS DESCRIPTION A - Received in fixative is one container labeled with the patient's name and designated duodenum biopsy. The specimen consists of multiple irregular fragments of light thomas soft tissue that in aggregate measure 1.0 x 0.2 x 0.1 cm. The specimen is totally submitted in one cassette. B - Received in fixative is one container labeled with the patient's name and designated gastric body. The specimen consists of multiple irregular fragments of light thomas soft tissue that in aggregate measure 1.0 x 0.3 x 0.1 cm. The specimen is totally submitted in one cassette. C - Received in fixative is one container labeled with the patient's name and designated distal esophagus. The specimen consists of multiple irregular fragments of light thomas soft tissue that in aggregate measure 1.0 x 0.3 x 0.1 cm. The specimen is totally submitted in one cassette. / AM:samreen 08/21/2023 TC:3 CPT: 56767 x3, 69296
[2023-08-21] MEDS: Lactated Ringers 1,000 ML 15 ML IV (06:08)
--- NOTE | 2023-08-21 06:30 | IMM_PTH ---
PATIENT: ANNEMARIE FULLER LOC: EN U#:[id number] AGE/SX: 68/F ROOM: RE08/21/[address]: Dr. Michael Diop DO : 1955 BED: DIS: 08/21/2023 SPEC #: [id number] RECD: 08/21/23 13:26 STATUS: HARMEET REDestini #: [id number] CORAL: 08/21/23 06:[address]: Michael Diop DEPT: IMMUNOHISTOCHEMISTRY RECD BY: Kalyani Ruiz ENTERED: 08/21/23 13:27 SP TYPE: IMMUNO OTHR DR: Dr. Sathish Copeland DO Tissues: B - Stomach, NOS Procedures: H Pylori (initial) [facility]YSIC[facility] INSTIT[facility] [address] [address] SPECIMEN INFORMATION: Tissue Source: B - Gastric body Clinical Info: GERD, MARK, diverticulitis, gastric cardia ulcer Specimen Number: [id number] CPT code: 42115 METHODOLOGY: Deparaffinized sections of prefer/formalin-fixed tissue or PAP/DQ stained slides are incubated with monoclonal/polyclonal antibodies/oligonucleotide probes. Localization is made via biotin free immunoperoxidase method. Appropriate controls are performed and reacted as expected. Results on target cell population are indicated in the following table: RESULTS: ANTIBODY / CLONE RESULT Block B H Pylori (polyclonal) negative These tests were developed and their performance characteristics determined by [facility]. They may not have been cleared or approved by the U.S. Food and Drug Administration. The FDA has determined that such clearance or approval is not necessary. The above immunohistochemical/dualISH markers are ordered and reviewed by the Pathologist. INTERPRETATION: B. Gastric body, biopsy: Negative for Helicobacter pylori organisms. AM:samreen 08/22/2023
--- NOTE | 2023-08-21 06:37 | HP.PCM_ITS ---
History and Physical Date of Admission: 08/21/23 ANNEMARIE FULLER, is a 68 F who presents to the office today for FH grandson hepatoblastoma requiring 2 liver transplants [facility] ED 12.23.20 with abdominal pain, N/V/D. Workup concerning for acute appendicitis and general surgery consulted. CT with contrast lung atelectasis; hepatomegaly with steatosis; gallstone 2.9mm; colonic diverticulosis; tubular thick-walled appendix consistent with acute appendicitis with appendicolith and inflammatory changes. ? Surgery 12.23.20 appendectomy, appendicitis/periappendicitis [facility] ED 5 with colicky abdominal pain radiating into her back for 3-4 days. Discharged with PPI and WSA follow up recommendation. ? US RUQ hepatomegaly 17.2cm with steatosis; cholelithiasis without cholecystitis. WSA OV 02.02.21 recommending cholecystectomy. ? Surgery 02.07.21 cholecystectomy, chronic cholecystitis and cholesterolosis *BGI established 06.13.21 with N/D abdominal discomfort, bloating and heartburn. PCP started ATB which was helpful. ? Biochemical ferritin, AFP, ceruloplasmin, copper, CLEMENTINA comp, ASM, AMA WNL? FIB4 0.87 (06.09.21) ? US/elastography 08.22.21 hepatic measurement 14.4cm with fatty infiltration, stiffness 5kPa EGD/Colonoscopy 06.22.21 EGD LA Grade A esophagitis; small hiatal hernia; gastritis; four non-bleeding cratered gastric ulcers; duodenitis, Jeff gland hyperplasia and metaplasia +. ? Colonoscopy diverticulosis; tortuous left colon OV 07.06.21 doing well with use of Carafate and PPI. Completed ATB course and is on probiotic at this time. OV 08.03.21 RUQ pain radiating into her back with some stomach discomfort. Return of acid reflux. Carafate ended; continue probiotic. ? Biochemical cholesterol, HDL, LDL, triglycerides WNL ? Xray back 08.03.21 degenerative disc disease of thoracic and lumbar spine with mild dextroscoliosis of thoracic spine. OV 1216. doing well without symptoms at this time. OV 11..23 reports reflux all day/night long with burning into her esophagus and mouth with upset stomach during the night for the last several months and ongoing RLQ cramping. ROS Const Constitutional: No anorexia, fatigue, fever(s), weight change or sleep problems Eyes Eyes: No change in vision ENT ENT: No abnormal hearing, difficulty swallowing, mouth lesions, tongue swelling or throat swelling Resp Respiratory: No cough or shortness of breath Cardio Cardiology: No chest pain at rest, chest pain with exertion, shortness of breath or dyspnea on exertion Gastro GI: No difficulty swallowing Genitourinary-Female: No difficulty urinating or burning urination Musc Musculoskeletal: No joint pain, joint swelling, muscle weakness or decreased muscle mass Skin Skin: No hair loss in leg, yellowing of the eye, itchy eyes, rash, skin ulcer or skin swelling Neuro Neurology: No abnormal hearing, abnormal movements, confusion, unsteady gait/balance or memory loss Psych Psychiatric: No anxiety, No confusion and No memory loss Endo Endocrine: No fatigue or weight change Aller/Imm Allergy/Immunologic: No itchy eyes, throat swelling or tongue swelling Austen/Lymp Hematologic/Lymphatic: No easy bleeding, easy bruising or enlarged lymph nodes Exam Const General: cooperative and comfortable Nutritional Appearance: average body habitus and well nourished [facility] Head: normal to inspection Ears: hearing grossly normal bilaterally Nose: external nose normal Face and sinus: normal facial exam Mouth: oral mucosae normal Throat: posterior oropharynx normal Eyes General: appearance normal, both eyes and all related structures Neck Neck: normal visual inspection Chest Chest palpation & inspection: normal inspection of the chest and normal pa lpation of entire chest wall Resp Effort & Inspection: normal respiratory effort Auscultation: Bilateral: Clear to Auscultation Cardio Palpation: normal PMI Rate: regular rate Rhythm: regular rhythm GI Inspection: normal to inspection Auscultation: normal bowel sounds Percussion: normal to percussion Palpation: no hepatosplenomegaly Skin General: no rashes or lesions noted Neuro General: patient alert Extrem General: normal to inspection Psych Affect: normal affect Quality Reporting Tobacco Screening ([facility] 138) Smoking Status: Never smoker Assessment and Plan Assessment and Plan (1) GERD (gastroesophageal reflux disease): Status: Chronic Qualifiers: Esophagitis presence: with esophagitis Esophagitis bleeding: without hemorrhage Qualified Code(s): K21.00 - Gastro-esophageal reflux disease with esophagitis, without bleeding Plan: We will repeat her EGD because she is off of medications and her symptoms returned 2 years later. She would like to see if she has any similar findings on her upper endoscopy prior to being started on prescription medications. (2) MARK (nonalcoholic steatohepatitis): Status: Acute Plan: We will order an elastography and likely a liver biopsy. I will not start vitamin D, Actos or ursodiol at this time for Mark. However we had extensive conversation regarding the possible options in the future. (3) Gastric cardia ulcer: Status: Acute Plan: She is off of nonsteroidals at this time. She will remain on a PPI after Carafate is stopped. We are trying a nonacidic diet for her. She is doing very well with it and is experiencing a lot less cramping and postprandial abdominal pain. I told her it typically takes 4 to 6 weeks to heal gastric ulcers without adding insults such as, NSAIDs, vitamin C, vitamin B or any other natural blood thinners. Repeat EGD to make sure that the ulcers are completely healed. (4) Diverticulitis: Status: Acute Plan: She is off of antibiotics and will continue the probiotics 3 times a day for 1 month, then 2 times a day for 1 month and then one time a day for life. I have examined the patient and the H&P has been reviewed. There are no clinical changes since date of exam.
--- NOTE | 2023-08-21 06:54 | OP.CCLET_ITS ---
08/21/2023 Sathish Copeland [address] [place] [address] Re : Upper GI endoscopy procedure for Carly Adan Dear Dr. Copeland This procedure was performed on Monday, August 21, 2023. My impressions and recommendations are as follows: Impressions : - LA Grade A reflux esophagitis with no bleeding. Biopsied. - Erythematous mucosa in the gastric body. Biopsied. - Bile duodenitis. Biopsied. Recommendations : - Discharge patient to home. - Resume previous diet. - Continue present medications. - Await pathology results. - Use Protonix (pantoprazole) 20 mg PO BID for 6 weeks. My findings are described in the full procedure note, which is enclosed. If I can be of further assistance, please feel free to contact me at . Sincerely, Michael Diop, 08/21/2023 6:53:34 AM This report has been signed electronically.
--- NOTE | 2023-08-21 06:54 | OP.EGD_ITS ---
Patient Name: Carly Adan Procedure Date: 08/21/2023 6:16 AM Date of : 1955 Age: 68 Procedure: Upper GI endoscopy Indications: Epigastric abdominal pain, Heartburn Providers: Michael Diop DO Medicines: Monitored Anesthesia Care Patient Profile: This is a 68 year old female. Refer to note in patient chart for documentation of history and physical. Patient has symptoms of acute epigastric abdominal pain and acute heartburn. Complications: No immediate complications. Procedure: Pre-Anesthesia Assessment: - Prior to the procedure, a History and Physical was performed, and patient medications and allergies were reviewed. The risks and benefits of the procedure and the sedation options and risks were discussed with the patient. All questions were answered and informed consent was obtained. Patient identification and proposed procedure were verified by the physician. Mental Status Examination: normal. Prophylactic Antibiotics: The patient does not require prophylactic antibiotics. Prior Anticoagulants: The patient has taken no anticoagulant or antiplatelet agents. After reviewing the risks and benefits, the patient was deemed in satisfactory condition to undergo the procedure. The anesthesia plan was to use monitored anesthesia care (MAC). Immediately prior to administration of medications, the patient was re-assessed for adequacy to receive sedatives. The heart rate, respiratory rate, oxygen saturations, blood pressure, adequacy of pulmonary ventilation, and response to care were monitored throughout the procedure. The physical status of the patient was re-assessed after the procedure. After obtaining informed consent, the endoscope was passed under direct vision. Throughout the procedure, the patient's blood pressure, pulse, and oxygen saturations were monitored continuously. The gastroscope was introduced through the mouth, and advanced to the second part of duodenum. The upper GI endoscopy was accomplished without difficulty. The patient tolerated the procedure well. Scope In: 6:41:47 AM Scope Out: 6:46:10 AM Total Procedure Duration Time 0 hours 4 minutes 23 seconds Findings: LA Grade A (one or more mucosal breaks less than 5 mm, not extending between tops of 2 mucosal folds) esophagitis with no bleeding was found 35 to 38 cm from the incisors. Biopsies were taken with a cold forceps for histology. Verification of patient identification for the specimen was done. Estimated blood loss was minimal. Patchy mildly erythematous mucosa without bleeding was found in the gastric body. Biopsies were taken with a cold forceps for histology. Verification of patient identification for the specimen was done. Estimated blood loss was minimal. Biopsies were taken with a cold forceps for Helicobacter pylori testing. Verification of patient identification for the specimen was done. Estimated blood loss was minimal. Patchy moderate inflammation characterized by erosions, erythema and friability was found in the duodenal bulb. Biopsies were taken with a cold forceps for histology. Verification of patient identification for the specimen was done. Estimated blood loss was minimal. Impression: - LA Grade A reflux esophagitis with no bleeding. Biopsied. - Erythematous mucosa in the gastric body. Biopsied. - Bile duodenitis. Biopsied. Recommendation: - Discharge patient to home. - Resume previous diet. - Continue present medications. - Await pathology results. - Use Protonix (pantoprazole) 20 mg PO BID for 6 weeks. Procedure Code(s): --- Professional --- 06834, Esophagogastroduodenoscopy, flexible, transoral; with biopsy, single or multiple CPT copyright 2021 [employer]. All rights reserved. The codes documented in this report are preliminary and upon poultry barn manager review may be revised to meet current compliance requirements. Michael Diop DO 08/21/2023 6:53:34 AM This report has been signed electronically. Number of Addenda: 0 Note Initiated On: 08/21/2023 6:16 AM
== END 2023-08-21 07:40 | disposition home or self-care (01) ==
LOC: EN 06:16 → AC 06:17
PROVIDERS: PCP Family Medicine; Referring Provider Family Medicine; Visit Provider Internal Medicine Gastroenterology
PROC: 0DJ08ZZ Inspection of Upper Intestinal Tract, Via Natural or Artificial Opening Endoscopic (ICD-10-PCS; CPT 43235; principal; 2023-08-21 06:25)
DX: K21.01 Gastro-esophageal reflux disease with esophagitis, with bleeding (principal); K29.80 Duodenitis without bleeding; K22.10 Ulcer of esophagus without bleeding; K57.92 Diverticulitis of intestine, part unspecified, without perforation or abscess without bleeding
CPT/HCPCS: 43239; 88305; 88313; 88342; J7120; J2405

== ENCOUNTER → 2023-08-30 | Outpatient (CLI) | payer MEDICARE, OTHER, SELFPAY ==
--- NOTE | 2023-08-30 10:37 | NM_ITS ---
CLINICAL: 68-year-old female with history of abdominal pain. SEMI-SOLID PHASE 99m Tc SULFUR COLLOID GASTRIC EMPTYING STUDY COMPARISON: None available FINDINGS: The patient was administered 1.1 mCi of 99m Tc sulfur colloid mixed with oatmeal and consumed per os. Image acquisitions in the anterior-posterior projections were obtained for 60 minutes. There is prompt visualization of the stomach. There is no gastroesophageal reflux identified. The T ? linear fit was calculated to be 58.93 minutes, (Normal: 12-56 minutes). NM/Gastric Emptying Study IMPRESSION: 1. ABNORMAL 99m Tc sulfur colloid semi-solid phase (oatmeal) gastric emptying imaging examination. A. There is mild delayed semi-solid phase gastric emptying compared to normal controls. (Vikas et al, J Nucl Med Tech 38: 186, 2010). Electronically Signed: Sean Guo DO at 22:18 EST ,
== END | disposition home or self-care (01) ==
LOC: NM 10:36
PROVIDERS: PCP Family Medicine; Referring Provider Internal Medicine Gastroenterology; Visit Provider Internal Medicine Gastroenterology
DX: R10.9 Unspecified abdominal pain (principal)
CPT/HCPCS: 78264; A9541

== ENCOUNTER 2023-11-28 07:01 | Outpatient (CLI) | payer MEDICARE, SELFPAY ==
[2023-11-28 10:06] LABS: Absolute Lymphocyte Count 1.87 X10^3/uL (0.83-4.51); Basophil# 0.02 X10^3/uL; Basophil% 0.4 % (0-1); Eosinophil# 0.15 X10^3/uL; Eosinophils% 3.4 % (0-5); Hematocrit 46.5 % (37-47); Hemoglobin 15.1 g/dL (12.0-15.0); Lymphocyte # 1.87 X10^3/ul (0.83-4.51); Lymphocyte % 41.9 % (19-41); Mean Corp Hgb Conc 32.5 g/dL (32-36); Mean Corpuscular Hgb 29.5 pg (27.0-32.0); Mean Corpuscular Volume 90.8 fL (81-99); Mean Platelet Vol. 10.7 fl (6.2-12.0); Monocyte# 0.38 X10^3/uL; Monocyte% 8.5 % (0-10); NRBC Flagged by Analyzer 0 % (0-5); Neutrophil # 2.03 X10^3/uL (2.7-7.7); Neutrophil % 45.6 % (47-70); Platelet Count 164 K/mm3 (150-450); RBC Distribution Width SD 43.7 fl (35.1-43.9); Red Blood Count 5.12 M/mm3 (4.2-5.4); White Blood Count 4.5 K/mm3 (4.4-11.0)
[2023-11-28 10:55] LABS: Vitamin B12 356 pg/mL (211-911); Vitamin D,25 Hydroxy 33.2 ng/mL
[2023-11-28 11:07] LABS: AST(SGOT) 36 U/L (15-37); Alanine Aminotransfer ALT/SGPT 55 U/L (13-56); Albumin, Serum 3.6 g/dL (3.2-5.0); Alkaline Phosphatase 84 U/L (45-117); Anion Gap 9 (5-15); BUN 17 mg/dL (7-18); BUN/Creat Ratio 15.3 RATIO (10-20); Calcium,Total 9.1 mg/dL (8.5-10.1); Chloride 107 mmol/L (98-107); Cholesterol 176 mg/dL (200); Creatinine, Serum 1.11 mg/dL (0.55-1.02); EST Glomerular Filtration Rate 52 mL/min (>60); Est Glom Filt Rate - Afr Amer 63 mL/min (>60); Globulin 3.6 g/dL (2.2-4.2); Glucose 123 mg/dL (74-106); High Density Lipoprotein 46 mg/dL; Potassium 4.3 mmol/L (3.5-5.1); Protein, Total 7.2 g/dL (6.4-8.2); Sodium Level 139 mmol/L (136-145); Thyroid Stim Hormone (TSH) 3.42 uIU/mL (0.358-3.74); Triglycerides 176 mg/dL; Very Low Density Lipoprotein 35 mg/dL (5-40)
[2023-11-29 10:46] LABS: T4 Total, Thyroxin 10.5 ug/dL (4.8-13.9)
== END 2023-11-28 23:59 | disposition home or self-care (01) ==
PROVIDERS: PCP Nurse Practitioner Family; Referring Provider Nurse Practitioner Family; Visit Provider Nurse Practitioner Family
DX: I10 Essential (primary) hypertension (principal); E56.9 Vitamin deficiency, unspecified; E03.9 Hypothyroidism, unspecified
CPT/HCPCS: 36415; 80053; 80061; 82306; 82607; 84436; 84443; 85025

== ENCOUNTER 2024-02-26 18:26 | Emergency (ER) | payer MEDICARE, SELFPAY ==
[2024-02-26 18:27] VITALS: PULSE 60; RESP 18; TEMP 35.8; O2SAT 95; BMI 27.1
--- NOTE | 2024-02-26 19:12 | ED.VIS.LOWEX ---
HPI History of Present Illness Chief Complaint: Wound Narrative Narrative: 68-year-old female presents with painful lump on her right calf that she noticed about a week ago. She thought maybe she had a bug bite in the area, but it is not improving. She denies any chest pain or shortness of breath, no recent trauma. She did note that it is in the area of one of her varicose veins. No exacerbating or alleviating factors. [facility] Medical History High cholesterol History of ulceration Gastric reflux Leg cramps Back pain Diverticulitis Gastric cardia ulcer History of echocardiogram History of stress test Constipation Abdominal pain Wears glasses Anxiety Prediabetes HTN (hypertension) Mixed anxiety and depressive disorder Irritable bowel syndrome Migraines Diverticulosis Dyslipidemia Insomnia Home Medications ?Medication ?Instructions ?Recorded ?Last Taken ?Type metoprolol succinate 25 mg 25 mg PO DAILY 12/23/20 08/20/23 History tablet,extended release 24 hr simvastatin 20 mg tablet 20 mg PO QHS 06/19/21 06/21/21 20:00 History Lactobacillus acidophilus 10 10,000 mmu cells PO DAILY #90 caps 07/30/23 Unknown Rx billion cell capsule (Probiotic) dapagliflozin propanediol 10 mg 10 mg PO DAILY 02/11/24 Unknown History tablet (Farxiga) magnesium 250 mg tablet 250 mg PO DAILY LEG CRAMPS 02/11/24 Unknown History pantoprazole 20 mg tablet,delayed 20 mg PO Q12H #60 TABLETS 02/19/24 Unknown Rx release Allergy/AdvReac Type Severity Reaction Status Date / Time metformin Allergy Intermediate Nausea Verified 02/26/24 18:27 clarithromycin (From Biaxin) Allergy Diarrhea Verified 02/26/24 18:27 prednisone Allergy Nausea Verified 02/26/24 18:27 rizatriptan benzoate (From Allergy Unknown Verified 02/26/24 18:27 Maxalt) metronidazole (From Flagyl) AdvReac Nausea Verified 02/26/24 18:27 Surgical History History of blepharoplasty Hx of bilateral cataract extraction History of esophagogastroduodenoscopy (EGD) History of cholecystectomy History of bilateral tubal ligation History of appendectomy (~12/2020) Social History household members: spouse Smoking Status: Never smoker substance use type: does not use ROS ROS ED ROS Narrative Constitutional: No fever, no chills. HEENT: No sore throat. No neck pain. No loss of vision. No rhinorrhea. Cardiovascular: No chest pain. No palpitations. No pedal edema. Respiratory: No cough, no shortness of breath. Abdominal: No abdominal pain. No nausea. No vomiting. Genitourinary: No dysuria. No hematuria. Musculoskeletal: No myalgias. No arthralgias. Neurologic: No headaches. No dizziness. No lightheadedness. Skin: No rash. Positive lump, with redness right medial calf and area of a varicose vein. Psychiatric: No depression. No anxiety. EXAM Physical Exam Narrative Exam Narrative: Afebrile. Vital signs noted. Regular rate and rhythm. Lungs clear to auscultation bilaterally. Abdomen soft nontender with normoactive bowel sounds. Awake, alert, neurological examination nonfocal and nonlateralizing. On her right medial calf and an area of a superficial varicose vein is up to a 1 cm raised area with minimal surrounding erythema consistent with superficial thrombophlebitis. She has a palpable dorsalis pedis pulse. Const Vital Signs: 02/26/24 18:27 Temperature 96.5 F L Temperature Source Temporal Pulse Rate 60 Respiratory Rate 18 Pulse Ox 95 MDM MDM MDM Narrative Medical decision making narrative: While I do feel that this is most likely superficial thrombophlebitis of a varicose vein, she states that she had mild posterior knee pain and felt like it was swollen, but it was not. DVT rule out will be obtained through ultrasound of the right lower extremity. In discussion with the gas plant technician, patient is negative for DVT, but she does have a superficial thrombophlebitis. At this point in time, she will apply warm compresses. I feel she be discharged safely home with follow-up. I feel [id number] medications are sufficient for analgesia. Return instructions to the emergency department were reviewed. Disposition is discharged home in stable condition. Radiography Diagnostic Testing: Clinical Impression(s) from Imaging Studies Venous Duplex 02/26/24 19:15 IMPRESSION: No sonographic evidence of deep venous thrombosis. Probable focal superficial thrombosis in the calf. Electronically Signed: Manuel Amaya DO at 20:04 EDT , Discharge Plan Triage Chief Complaint: Wound ED Provider: Corey Govea Dx/Rx/DC Orders Clinical Impression: Superficial thrombosis of right lower extremity Instructions: ED Thrombophlebitis, Superficial Prescriptions: No Action Probiotic 10 billion cell capsule 10,000 mmu cells PO DAILY Qty: 90 11RF dapagliflozin propanediol [Farxiga] 10 mg tablet 10 mg PO DAILY metoprolol succinate 25 MG tablet extended release 24 hr 25 mg PO DAILY simvastatin 20 mg tablet 20 mg PO QHS Patient Comments: TAKE 1 TABLET BY MOUTH EVERY DAY magnesium 250 mg tablet 250 mg PO DAILY pantoprazole 20 mg tablet,delayed release (DR/EC) 20 mg PO Q12H Qty: 60 3RF Primary Care Provider: Sathish Dyson Referrals: Sathish Dyson, [facility] [Primary Care Provider] - 1 Week if not improving Print Language: Austrian Disposition Disposition: Home, Self Care
--- NOTE | 2024-02-26 19:15 | US_ITS ---
INDICATION: RT PALP LUMP MEDIAL CALF EXAMINATION: Ultrasound US Venous Duplex LE Unilat / Limited TECHNIQUE: Mendoza scale, pulse wave, and color flow Doppler imaging was performed of the lower extremity venous system. The bilateral greater saphenous, common femoral, femoral, and popliteal veins were interrogated. COMPARISON: FINDINGS: There is normal compression, augmentation, and signal throughout the visualized deep lower extremity veins. There is a focal noncompressible superficial vein in the subcutaneous layer of the right medial calf over the area of the palpable lump. No mass or fluid collection. US/Venous Duplex Imag/Limited/Uni IMPRESSION: No sonographic evidence of deep venous thrombosis. Probable focal superficial thrombosis in the calf. Electronically Signed: Manuel Amaya DO at 20:04 EDT Reading Location ID and State: [facility] / [place] Tel [phone], Service support ,
== END 2024-02-26 20:55 | disposition home or self-care (01) ==
PROVIDERS: Emergency Provider Emergency Medicine; PCP Nurse Practitioner Family; Visit Provider Emergency Medicine
DX: I82.461 Acute embolism and thrombosis of right calf muscular vein (principal); E78.00 Pure hypercholesterolemia, unspecified; I10 Essential (primary) hypertension; Z79.899 Other long term (current) drug therapy; K21.9 Gastro-esophageal reflux disease without esophagitis; Z98.41 Cataract extraction status, right eye; Z98.42 Cataract extraction status, left eye; Z90.49 Acquired absence of other specified parts of digestive tract; Z98.51 Tubal ligation status
CPT/HCPCS: 93971; 99282

== ENCOUNTER → 2024-04-02 | Outpatient (CLI) | payer MEDICARE, SELFPAY ==
[2024-04-02 12:49] LABS: Anion Gap 6 (5-15); BUN 19 mg/dL (7-18); BUN/Creat Ratio 19.2 RATIO (10-20); Calcium,Total 9.8 mg/dL (8.5-10.1); Chloride 106 mmol/L (98-107); Creatinine, Serum 0.99 mg/dL (0.55-1.02); EST Glomerular Filtration Rate 59 mL/min (>60); Est Glom Filt Rate - Afr Amer 72 mL/min (>60); Glucose 123 mg/dL (74-106); Potassium 4.5 mmol/L (3.5-5.1); Sodium Level 137 mmol/L (136-145); Thyroid Stim Hormone (TSH) 2.57 uIU/mL (0.358-3.74)
[2024-04-02 13:24] LABS: Microalbumin,Random Urine 8.5 mg/L (NO RANGE EST.)
== END | disposition home or self-care (01) ==
LOC: VSLAB 11:09
PROVIDERS: PCP Nurse Practitioner Family; Visit Provider Nurse Practitioner Family
DX: E11.9 Type 2 diabetes mellitus without complications (principal)
CPT/HCPCS: 36415; 80048; 82043; 84443

== ENCOUNTER → 2024-07-23 | Outpatient (CLI) | payer MEDICARE, SELFPAY ==
[2024-07-23 13:10] LABS: ALB/GLOB Ratio 1.2 RATIO (0.9-2.4); AST(SGOT) 24 U/L (15-37); Absolute Lymphocyte Count 1.44 X10^3/uL (0.83-4.51); Absolute Neutrophil Count 2.3 X10^3/uL (2.0-7.7); Alanine Aminotransfer ALT/SGPT 31 U/L (13-56); Albumin, Serum 3.7 g/dL (3.2-5.0); Alkaline Phosphatase 75 U/L (45-117); Anion Gap 6 (5-15); BUN 16 mg/dL (7-18); BUN/Creat Ratio 16.2 RATIO (10-20); Basophil# 0.04 X10^3/uL; Basophil% 0.9 % (0-1); Calcium,Total 9.1 mg/dL (8.5-10.1); Chloride 107 mmol/L (98-107); Creatinine, Serum 0.98 mg/dL (0.55-1.02); EST Glomerular Filtration Rate 60 mL/min (>60); Eosinophils% 4.6 % (0-5); Est Glom Filt Rate - Afr Amer 72 mL/min (>60); Globulin 3.1 g/dL (2.2-4.2); Glucose 111 mg/dL (74-106); Hemoglobin 16.1 g/dL (12.0-15.0); Lymphocyte # 1.44 X10^3/ul (0.83-4.51); Lymphocyte % 33.3 % (19-41); Mean Corp Hgb Conc 32.9 g/dL (32-36); Mean Corpuscular Hgb 30.2 pg (27.0-32.0); Mean Corpuscular Volume 91.9 fL (81-99); Monocyte# 0.35 X10^3/uL; Monocyte% 8.1 % (0-10); NRBC Flagged by Analyzer 0 % (0-5); Neutrophil # 2.28 X10^3/uL (2.7-7.7); Neutrophil % 52.9 % (47-70); Platelet Count 198 K/mm3 (150-450); Potassium 4.5 mmol/L (3.5-5.1); Protein, Total 6.8 g/dL (6.4-8.2); RBC Distribution Width CV 13.2 % (11.6-14.6); RBC Distribution Width SD 44.6 fl (35.1-43.9); Red Blood Count 5.33 M/mm3 (4.2-5.4); Sodium Level 141 mmol/L (136-145); White Blood Count 4.3 K/mm3 (4.4-11.0)
== END | disposition home or self-care (01) ==
LOC: VSLAB 08:17
PROVIDERS: PCP Nurse Practitioner Family; Visit Provider Nurse Practitioner Family
DX: E11.9 Type 2 diabetes mellitus without complications (principal)
CPT/HCPCS: 36415; 80053; 85025

== ENCOUNTER → 2024-08-07 | Outpatient (CLI) | payer MEDICARE, SELFPAY ==
--- NOTE | 2024-08-07 11:54 | BD_ITS ---
STUDY: DUAL ENERGY X-RAY ABSORPTIOMETRY / DXA REASON FOR EXAM: Female, 69 years old. 733.00OsteoporosisBONE DENSITY REASON FOR EXAM TECHNIQUE: Bone Mineral Density (BMD) measurements of lumbar spine and bilateral hips were obtained. COMPARISON: Comparison is made with prior study dated March 16, 2021. FINDINGS: Lumbar Spine (L1-L4): g/cm2 (0.882) / T-score (-1.5) / Z-score (0.5) Findings are suggestive of osteopenia with a low fracture risk. Left Femur Total: g/cm2 (0.800) / T-score (-1.2) / Z-score (0.2) Left Femoral Neck: g/cm2 (0.568) / T-score (-2.5) / Z-score (-4.8) Right Femur Total: g/cm2 (0.788) / T-score (-1.3) / Z-score (0.1) Right Femoral Neck: g/cm2 (0.637) / T-score (-1.9) / Z-score (-0.2) The T-Scores on the most recent prior examination were: Lumbar Spine (L1-L4): There has been worsening of bone density since the previous examination. Left Femur Total: which represents an improvement of 8.3%. Right Femur Total: which represents a worsening of 1.7%. BD/Dexa Bone Density Study IMPRESSION: The patient is considered osteopenic as outlined below according to World [place] M Organization (WHO) criteria with a high fracture risk. There has been worsening of bone density since the previous examination. Reference Information: The T-score is the number of standard deviations above or below the standard which is normal for young adults at their peak bone mineral density. The World Health Organization (WHO) interprets the T-scores as follows: Above -1 Normal bone density Between -1 and -2.5 Osteopenia Equal to / or below -2.5 Osteoporosis As a practical clinical guideline, osteopenia may be graded as follows: Mild -1 through -1.5 Moderate -1.6 through -2.0 Severe -2.1 through -2.4 The Z-score is the number of standard deviations above or below age-matched controls. A Z-score of less than -1.5 would be considered abnormal. References: 1. NIH Osteoporosis and Related Bone Diseases www osteo.org 2. International Society for Clinical Densitometry www iscd.org 3. National Osteoporosis Foundation www nof.org Electronically Signed: Slick Avina MD at 14:58 EST ,
--- NOTE | 2024-08-07 11:54 | BI_ITS ---
MAMMOGRAPHY - BILATERAL SCREENING REASON FOR EXAM: Female, 69 years old. Routine annual screening examination. PERTINENT HISTORY: Non-contributory. TECHNIQUE: Digital bilateral breast shawna (3D mammographic acquisition) in the CC and MLO projections. 2-D mediolateral oblique (MLO) and craniocaudad (CC) views of both breasts were obtained. CAD: Full Field Digital Mammography with Computer Added Detection was performed. COMPARISON: Comparison is made with prior study dated March 15, 2022 and March 14, 2021. FINDINGS: Breast Composition: There are scattered areas of fibroglandular density. There are no dominant masses or suspicious calcifications. Stable small bilateral benign-appearing axillary lymph nodes. No other significant abnormalities are identified. There has been no significant change since the prior study. BI/SCRN MAMM (CAD)W/SHAWNA BILAT IMPRESSION: Stable bilateral screening mammogram. Yearly follow-up mammogram recommended. (A) ASSESSMENT CATEGORY: BIRADS Category 2: Benign. A letter regarding these results will be sent to the patient by the facility within 30 days. Approximately 10% of breast cancers are not detected by mammography. A normal mammogram should not delay biopsy of a clinically suspicious abnormality. [id number] Electronically Signed: Slick Avina MD at 15:02 EST ,
== END | disposition home or self-care (01) ==
LOC: OPBD 11:52
PROVIDERS: PCP Nurse Practitioner Family; Referring Provider Nurse Practitioner Family; Visit Provider Nurse Practitioner Family
DX: Z12.31 Encounter for screening mammogram for malignant neoplasm of breast (principal); Z13.820 Encounter for screening for osteoporosis; M81.0 Age-related osteoporosis without current pathological fracture
CPT/HCPCS: 77063; 77067; 77080

== ENCOUNTER → 2024-08-25 | Outpatient (CLI) | payer MEDICARE, SELFPAY ==
[2024-08-25 12:52] LABS: Vitamin D,25 Hydroxy 66.8 ng/mL
== END | disposition home or self-care (01) ==
LOC: VSLAB 10:58
PROVIDERS: PCP Nurse Practitioner Family; Referring Provider Nurse Practitioner Family; Visit Provider Nurse Practitioner Family
DX: M85.88 Other specified disorders of bone density and structure, other site (principal)
CPT/HCPCS: 36415; 82306

== ENCOUNTER → 2024-10-08 | Outpatient (CLI) | payer MEDICARE, SELFPAY ==
[2024-10-08 13:23] LABS: ALB/GLOB Ratio 1.1 RATIO (0.9-2.4); AST(SGOT) 16 U/L (15-37); Alanine Aminotransfer ALT/SGPT 32 U/L (13-56); Albumin, Serum 3.5 g/dL (3.2-5.0); Alkaline Phosphatase 68 U/L (45-117); Anion Gap 6 (5-15); BUN 14 mg/dL (7-18); BUN/Creat Ratio 14.9 RATIO (10-20); Calcium,Total 9.4 mg/dL (8.5-10.1); Chloride 104 mmol/L (98-107); Cholesterol 164 mg/dL (200); Creatinine, Serum 0.94 mg/dL (0.55-1.02); EST Glomerular Filtration Rate 63 mL/min (>60); Est Glom Filt Rate - Afr Amer 76 mL/min (>60); Globulin 3.2 g/dL (2.2-4.2); Glucose 137 mg/dL (74-106); High Density Lipoprotein 45 mg/dL; Potassium 4.3 mmol/L (3.5-5.1); Protein, Total 6.7 g/dL (6.4-8.2); Sodium Level 137 mmol/L (136-145); Triglycerides 143 mg/dL; Very Low Density Lipoprotein 29 mg/dL (5-40)
== END | disposition home or self-care (01) ==
LOC: VSLAB 08:38
PROVIDERS: PCP Nurse Practitioner Family; Visit Provider Nurse Practitioner Family
DX: E11.9 Type 2 diabetes mellitus without complications (principal); E78.5 Hyperlipidemia, unspecified; Z13.228 Encounter for screening for other metabolic disorders
CPT/HCPCS: 36415; 80053; 80061; 84443

== ENCOUNTER → 2024-12-18 | Outpatient (CLI) | payer MEDICARE, SELFPAY ==
[2024-12-18 09:40] LABS: Absolute Lymphocyte Count 1.55 X10^3/uL (0.83-4.51); Absolute Neutrophil Count 1.8 X10^3/uL (2.0-7.7); Basophil# 0.02 X10^3/uL; Basophil% 0.5 % (0-1); Eosinophils% 5.1 % (0-5); Hematocrit 49.5 % (37-47); Hemoglobin 16.2 g/dL (12.0-15.0); Lymphocyte # 1.55 X10^3/ul (0.83-4.51); Lymphocyte % 39.4 % (19-41); Mean Corp Hgb Conc 32.7 g/dL (32-36); Mean Corpuscular Hgb 29.9 pg (27.0-32.0); Mean Corpuscular Volume 91.5 fL (81-99); Mean Platelet Vol. 9.8 fl (6.2-12.0); Monocyte# 0.31 X10^3/uL; Monocyte% 7.9 % (0-10); NRBC Flagged by Analyzer 0 % (0-5); Neutrophil # 1.84 X10^3/uL (2.7-7.7); Neutrophil % 46.8 % (47-70); Platelet Count 174 K/mm3 (150-450); RBC Distribution Width CV 13.2 % (11.6-14.6); Red Blood Count 5.41 M/mm3 (4.2-5.4); White Blood Count 3.9 K/mm3 (4.4-11.0)
[2024-12-18 11:04] LABS: Hemoglobin A1c 6.9 % (<=5.6)
[2024-12-18 11:22] LABS: ALB/GLOB Ratio 1.5 RATIO (0.9-2.4); AST(SGOT) 21 U/L (<=31); Alanine Aminotransfer ALT/SGPT 25 U/L (<=34); Albumin, Serum 4.5 g/dL (3.4-4.8); Alkaline Phosphatase 72 U/L (35-104); Anion Gap 12 (5-15); BUN 13 mg/dL (4-19); BUN/Creat Ratio 14.8 RATIO (10-20); Calcium,Total 9.7 mg/dL (7.6-11.0); Carbon Dioxide 23.9 mmol/L (21.0-32.0); Chloride 104 mmol/L (98-108); Creatinine, Serum 0.89 mg/dL (0.70-1.20); EST Glomerular Filtration Rate 71 (>60); Glucose 151 mg/dL (70-99); Potassium 4.4 mmol/L (3.3-5.1); Protein, Total 7.4 g/dL (5.9-8.4); Sodium Level 139 mmol/L (133-145); Total Bilirubin 0.68 mg/dL (0.00-1.30)
[2024-12-22 22:07] LABS: Cotinine Screen Blood <1.0 ng/mL (.); Nicotine Blood <1.0 ng/mL (.)
== END | disposition home or self-care (01) ==
LOC: LAB 08:44
PROVIDERS: PCP Nurse Practitioner Family
DX: Z01.818 Encounter for other preprocedural examination (principal)
CPT/HCPCS: 36415; 80053; 80323; 83036; 84443; 85025; G0480

== ENCOUNTER → 2024-12-22 | Outpatient (CLI) | payer MEDICARE, SELFPAY ==
--- NOTE | 2024-12-22 13:26 | EKG12_ITS ---
Test Reason : PREOP Blood Pressure : */* mmHG Vent. Rate : 74 BPM Atrial Rate : 74 BPM P-R Int : 156 ms QRS Dur : 82 ms QT Int : 392 ms P-R-T Axes : 49 45 -13 degrees QTcB Int : 435 ms Normal sinus rhythm Cannot rule out Anterior infarct , age undetermined Abnormal ECG Confirmed by GISELA WANG, JADE ([id number]), society editor PENELOPE FRANCO ([id number]) on 12/23/2024 6:37:53 AM Referred By: Daja Jacobs Confirmed By: JADE HIGGINS MD
== END | disposition home or self-care (01) ==
PROVIDERS: PCP Nurse Practitioner Family
DX: Z01.818 Encounter for other preprocedural examination (principal)
CPT/HCPCS: 93005

== ENCOUNTER → 2025-02-12 | Outpatient (CLI) | payer MEDICARE, SELFPAY ==
[2025-02-12 09:36] LABS: Hemoglobin A1c 7.4 % (<=5.6)
[2025-02-16 16:08] LABS: Erythropoietin 13.1 mIU/mL (2.6-18.5)
== END | disposition home or self-care (01) ==
LOC: LAB 08:29
PROVIDERS: PCP Nurse Practitioner Family; Referring Provider Internal Medicine Gastroenterology; Visit Provider Internal Medicine Gastroenterology
DX: E11.9 Type 2 diabetes mellitus without complications (principal); K75.81 Nonalcoholic steatohepatitis (NASH); R10.11 Right upper quadrant pain
CPT/HCPCS: 36415; 82668; 83036

== ENCOUNTER → 2025-04-06 | Outpatient (CLI) | payer MEDICARE, SELFPAY | END | disposition home or self-care (01) | LOC: SL 10:10 | PROVIDERS: PCP Family Medicine; Referring Provider Family Medicine; Visit Provider Family Medicine | DX: G47.10 Hypersomnia, unspecified (principal); D75.1 Secondary polycythemia | CPT/HCPCS: 95806 ==

== ENCOUNTER → 2025-04-29 | Outpatient (CLI) | payer MEDICARE, SELFPAY | END | disposition home or self-care (01) | LOC: SL 11:34 | PROVIDERS: PCP Family Medicine; Referring Provider Family Medicine; Visit Provider Family Medicine | DX: G47.33 Obstructive sleep apnea (adult) (pediatric) (principal) ==

== ENCOUNTER → 2025-05-06 | Outpatient (CLI) | payer MEDICARE, SELFPAY ==
[2025-05-06 18:07] LABS: Hematocrit 40.8 % (37-47); Hemoglobin 13.2 g/dL (12.0-15.0); Immature Granulocytes Count 0.020 X10^3/uL (0.0-0.0); Mean Corp Hgb Conc 32.4 g/dL (32-36); Mean Corpuscular Volume 92.3 fL (81-99); Mean Platelet Vol. 11.2 fl (6.2-12.0); NRBC Flagged by Analyzer 0 % (0-5); Platelet Count 149 K/mm3 (150-450); RBC Distribution Width CV 13.3 % (11.6-14.6); RBC Distribution Width SD 45.3 fl (35.1-43.9); Red Blood Count 4.42 M/mm3 (4.2-5.4); White Blood Count 3.9 K/mm3 (4.4-11.0)
[2025-05-06 18:33] LABS: Anion Gap 13 (5-15); BUN 14 mg/dL (4-19); BUN/Creat Ratio 16.5 RATIO (10-20); Calcium,Total 9.4 mg/dL (7.6-11.0); Carbon Dioxide 21.4 mmol/L (21.0-32.0); Chloride 105 mmol/L (98-108); Glucose 219 mg/dL (70-99); Potassium 4.2 mmol/L (3.3-5.1)
[2025-05-12 06:08] LABS: Cotinine Screen Blood <1.0 ng/mL (.)
== END | disposition home or self-care (01) ==
PROVIDERS: Internal Medicine Gastroenterology; PCP Family Medicine; Visit Provider Family Medicine
DX: Z01.818 Encounter for other preprocedural examination (principal); K75.81 Nonalcoholic steatohepatitis (NASH); R10.11 Right upper quadrant pain
CPT/HCPCS: 36415; 80048; 80323; 83036; 84443; 85025; G0480

== ENCOUNTER → 2025-05-20 | Outpatient (CLI) | payer MEDICARE, SELFPAY ==
--- NOTE | 2025-05-20 13:48 | ECHOD_ITS ---
Reason For Study Reason For Study: MILD MURMUR, HX LVH Procedure This was a 2D Doppler, Color Flow transthoracic echocardiogram. Exam performed in department. Left Ventricle Normal LV size. Left ventricular systolic function is normal. The left ventricular ejection fraction is 65 %. No regional wall motion abnormalities noted. Right Ventricle Normal RV size. Normal systolic function. Atria Normal left atrium. Normal right atrium. Mitral Valve Normal mitral valve. Tricuspid Valve Normal tricuspid valve. Mild (1+) tricuspid valve insufficiency. Aortic Valve Trisinus/trileaflet aortic valve. Pulmonic Valve Normal pulmonic valve. Great Vessels Normal aortic root. The pulmonary artery is normal size. Inferior vena cava collapse with respiration. Pericardium/Pleural No pericardial effusion. MMode/2D Measurements & Calculations LVIDd: 4.3 cm IVSd: 1.0 cm CO(Teich): 3.2 l/min LVIDs: 2.6 cm LVPWd: 1.0 cm RVDd: 2.6 cm FS: 38.8 % Ao root diam: 3.2 cm LAV(MOD-bp): 58.7 ml LVAd ap4: 22.7 cm2 LAV(MOD-bp) Indexed: 31.8 ml/m2 LVLd ap4: 6.8 cm LAV(MOD-sp2): 52.7 ml EDV(MOD-sp4): 62.2 ml LAV(MOD-sp4): 63.9 ml EDV(sp4-el): 63.8 ml LVAs ap4: 11.6 cm2 LVLs ap4: 5.3 cm ESV(MOD-sp4): 21.3 ml ESV(sp4-el): 21.4 ml EF(MOD-sp4): 65.8 % EF(sp4-el): 66.4 % LVAd ap2: 21.8 cm2 CO(MOD-sp4): 2.3 l/min SV(MOD-sp2): 39.7 ml LVLd ap2: 6.7 cm SV(MOD-sp4): 40.9 ml SI(MOD-sp2): 21.5 ml/m2 EDV(MOD-sp2): 58.7 ml SI(MOD-sp4): 22.2 ml/m2 EDV(sp2-el): 60.4 ml LVAs ap2: 10.5 cm2 LVLs ap2: 5.0 cm ESV(MOD-sp2): 19.0 ml ESV(sp2-el): 18.5 ml EF(MOD-sp2): 67.6 % SV(sp4-el): 42.4 ml LA dimension(2D): 3.6 cm LA A4 area: 20.6 cm2 RA A4 area: 11.7 cm2 TAPSE: 2.2 cm Time Measurements MV dec time: 0.25 sec Doppler Measurements & Calculations MV E max darinel: 100.2 cm/sec Lat Peak E' Darinel: 11.3 cm/sec Med Peak E' Darinel: 7.5 cm/sec E/E' lat: 8.9 E/E' med: 13.4 MV V2 max: 103.5 cm/sec MV P1/2t max darinel: 111.3 cm/sec Ao V2 max: 140.6 cm/sec MV max P.3 mmHg MV P1/2t: 64.5 msec Ao max P.9 mmHg MV V2 mean: 55.2 cm/sec Ao V2 mean: 100.6 cm/sec MV mean P.5 mmHg MV dec slope: 505.5 cm/sec2 Ao mean P.5 mmHg MV V2 VTI: 37.0 cm MVA(P1/2t): 3.4 cm2 Ao V2 VTI: 35.9 cm AV (velocity ratio): 0.98 LV V1 max: 133.3 cm/sec PA V2 max: 71.2 cm/sec PI end-d darinel: 106.2 cm/sec LV V1 max P.1 mmHg PA V2 mean: 67.5 cm/sec PI dec slope: 98.0 cm/sec2 LV V1 mean P.0 mmHg LV V1 mean: 95.1 cm/sec LV V1 VTI: 35.3 cm TR max darinel: 209.2 cm/sec TR max P.9 mmHg ECHO/Echo Complete Interpretation Summary Normal LV size. Left ventricular systolic function is normal. The left ventricular ejection fraction is 65 %. Mild (1+) tricuspid valve insufficiency. Structurally normal valves. Ordering Physician: Sathish Copeland Referring Physician: Sathish Copeland Performed By: Shruti Benz RDCS, RVT
== END | disposition home or self-care (01) ==
LOC: CVS 13:47
PROVIDERS: PCP Family Medicine; Referring Provider Family Medicine; Visit Provider Family Medicine
DX: R01.1 Cardiac murmur, unspecified (principal); I51.7 Cardiomegaly
CPT/HCPCS: 93306

== ENCOUNTER 2025-06-18 13:33 | Emergency (ER) | payer MEDICARE, SELFPAY ==
[2025-06-18 13:34] VITALS: BP 155/78; PULSE 79; RESP 16; TEMP 37; O2SAT 97; BMI 28.3
--- NOTE | 2025-06-18 14:50 | VDLE_ITS ---
Reason For Study Reason For Study: Swelling RIGHT LEFT GSV is normal. GSV is normal. CFV is compressible, spontaneous, phasic, competent CFV is compressible, spontaneous, phasic, competent, and demonstrates normal augmentation. and demonstrates normal augmentation. FV is compressible, spontaneous, phasic, competent FV is compressible, spontaneous, phasic, competent and demonstrates normal augmentation. and demonstrates normal augmentation. POP V is compressible, spontaneous, phasic, competent POP V is compressible, spontaneous, phasic, competent and demonstrates normal augmentation. and demonstrates normal augmentation. T/P Trunk is compressible. T/P Trunk is compressible. PTV is compressible. PTV is compressible. RT PerV is compressible. LT PerV is compressible. Procedure This is a venous duplex using B-mode, color flow and spectral Doppler. Exam performed in department. A preliminary report was called and/or faxed to ED Charge Nurse. VL/Venous Duplex US - Stephon Extrem Interpretation Summary Deep veins of the bilateral lower extremities are patent and compressible segme ntally. There is no evidence of bilateral lower extremity deep vein thrombosis. The bilateral great saphenous veins appea r patent and compressible segmentally. Ordering Physician: Chano Christian Referring Physician: Sathish Copeland DO Performed By: Diane Graves RVT
== END 2025-06-18 15:51 | disposition left against medical advice (07) ==
LOC: ED 15:56
PROVIDERS: PCP Family Medicine
DX: R60.9 Edema, unspecified (principal)
CPT/HCPCS: 93970

== ENCOUNTER 2025-07-11 04:41 | Emergency (ER) | payer MEDICARE, SELFPAY ==
[2025-07-11 04:42] VITALS: BP 168/74; PULSE 77; RESP 33; TEMP 37.1; O2SAT 96
[2025-07-11] MEDS: 0.9% Normal Saline (1000mL) 1,000 ML 999 ML IV (05:19)
[2025-07-11 05:24] LABS: Hematocrit 42.3 % (37-47); Hemoglobin 13.8 g/dL (12.0-15.0); Immature Granulocytes Count 0.010 X10^3/uL (0.0-0.0); Mean Corp Hgb Conc 32.6 g/dL (32-36); Mean Corpuscular Volume 90.8 fL (81-99); Mean Platelet Vol. 9.7 fl (6.2-12.0); NRBC Flagged by Analyzer 0 % (0-5); Platelet Count 193 K/mm3 (150-450); RBC Distribution Width CV 13.7 % (11.6-14.6); RBC Distribution Width SD 45.2 fl (35.1-43.9); Red Blood Count 4.66 M/mm3 (4.2-5.4); White Blood Count 4.8 K/mm3 (4.4-11.0)
[2025-07-11 05:43] LABS: Anion Gap 12 (5-15); BUN 10 mg/dL (4-19); BUN/Creat Ratio 10.8 RATIO (10-20); Calcium,Total 9.7 mg/dL (7.6-11.0); Carbon Dioxide 25.3 mmol/L (21.0-32.0); Chloride 101 mmol/L (98-108); Glucose 177 mg/dL (70-99); Potassium 4.1 mmol/L (3.3-5.1)
[2025-07-11 05:50] LABS: CRP < 3.00 mg/L (0.0-3.0)
[2025-07-11 06:42] VITALS: BP 128/76; PULSE 74; RESP 16; TEMP 36.7; O2SAT 97
== END 2025-07-11 06:56 | disposition home or self-care (01) ==
PROVIDERS: Emergency Provider Emergency Medicine; PCP Family Medicine; Visit Provider Emergency Medicine
DX: Q32.1 Other congenital malformations of trachea (principal); I10 Essential (primary) hypertension; R06.00 Dyspnea, unspecified; E78.00 Pure hypercholesterolemia, unspecified; Z79.899 Other long term (current) drug therapy; K21.9 Gastro-esophageal reflux disease without esophagitis; Z98.41 Cataract extraction status, right eye; Z98.42 Cataract extraction status, left eye; Z90.49 Acquired absence of other specified parts of digestive tract; Z98.51 Tubal ligation status
CPT/HCPCS: 70491; 80048; 85025; 85652; 86140; 93005; 96360; 96361; 99282; Q9967; A4216